=== PATIENT | female | born 1995 | race Caucasian/White ===

== ENCOUNTER 2017-10-20 19:04 | Inpatient (IN) | payer MEDICAID, SELFPAY ==
[2017-10-20 18:27] VITALS: BMI 27.6
[2017-10-20 18:46] LABS: Color, Urine Yellow (Yellow); Glucose, Dipstick Normal (Normal); Ketone-Dipstick 50 mg/dl (Negative); Leukocyte Esterase-Dipstick 25 /ul (Negative); Nitrite-Dipstick Negative (Negative); Occult Blood-Urine 10 /ul (Negative); Protein-Dipstick 30 mg/dl (Negative); Urine Clarity Sl. Cloudy (Clear); Urine Urobilinogen 1 mg/dl (Normal)
[2017-10-20 18:48] LABS: Urine Bilirubin Dipstick 1 mg/dL (Negative)
[2017-10-20 18:53] LABS: ROM Internal Control Test YES-OK TO RESULT pt. (Internal QC)
[2017-10-20 18:54] LABS: ROM Patient Test POSITIVE (Negative)
[2017-10-20 18:59] LABS: Amphetamine Urine VISTA NEGATIVE (<1000 ng/mL); Barbiturate Urine VISTA NEGATIVE (< 200 ng/mL); Benzodiazepine Urine VISTA NEGATIVE (< 200 ng/mL); Cocaine Urine VISTA NEGATIVE (< 300 ng/mL); Ecstacy Urine VISTA NEGATIVE (< 500 ng/mL); Methadone Urine VISTA NEGATIVE (< 300 ng/mL); PCP Urine VISTA NEGATIVE (< 25 ng/mL); THC Urine VISTA POSITIVE (< 50 ng/mL); Vista UDS pH Range 6
[2017-10-20] MEDS: Lactated Ringers 1,000 ML 50 ML IV ×2 (19:55→21:12)
[2017-10-20 20:21] LABS: Hematocrit 35.2 % (37-47); Hemoglobin 11.3 g/dl (12.0-15.0); Mean Corp Hgb Conc 32.1 g/gl (32-36); Mean Corpuscular Hgb 28.3 pg (27.0-32.0); Mean Corpuscular Volume 88.2 fL (81-99); Mean Platelet Vol. 12.4 fl (6.2-12.0); Platelet Count 252 K/mm3 (150-450); RBC Distribution Width SD 48.2 fl (35.1-43.9); Red Blood Count 3.99 M/mm3 (4.2-5.4); Scan Indicated on CBC? Y/N NO
[2017-10-20] MEDS: Oxytocin 30 units/NS 500 ml 30 UNITS/500 ML IV.SOLN IV (21:19)
--- NOTE | 2017-10-21 00:01 | PCM.HP.OB ---
(1) Active labor at term Status: Acute (2) UTI in Status: Acute Qualifiers: Comment: Repeat urine culture week of 10/12/17 (3) History of drug abuse in remission Status: Acute Comment: marijuana and meth in past, random tox screens done. positive marijuana in (4) Rubella non-immune status, antepartum Status: Acute (5) Supervision of high risk , antepartum Status: Acute Comment: MADAN 10/17/17 girl Gwen boyfriend Reji (6) complicated by tobacco use Status: Acute Qualifiers: History Date of Admission: 10/20/17 Gestational age: 40.3 History of this : 22 @ 40w3d presents IAL srom clear fluid at noon. no vb co ctx every ten minutes Pertinent Past Medical History: negative PSH: negative OB history: primigravid labs: rubella non immune RPR NR HIV neg HepB neg gc chlamydia negative Allergies nitrofurantoin Allergy (Intermediate, Verified 10/20/17 20:21) Rash Current Medications Acetaminophen (Tylenol) 325 - 650 mg PO Q4H PRN PRN PRN Reason: PAIN OR FEVER >100.4F Al Hydroxide/Mg Hydroxide (Mylanta Ii) 15 - 30 ml PO Q4H PRN PRN PRN Reason: INDIGESTION Citric Acid/Sodium Citrate (Bicitra) 30 ml PO UD PRN Oxytocin/Sodium Chloride () 30 units in 500 mls @ 1 mls/hr IV .Q500H [facility] Last Admin: 10/20/17 21:19 Dose: 1 mls/hr Lactated Ringer's () 1,000 mls @ 50 mls/hr IV .Q20H [facility] Last Admin: 10/20/17 21:12 Dose: 50 mls/hr Naloxone HCl 4 mg/ Dextrose 504 mls @ 0 mls/hr IV PRN PRN; Protocol PRN Reason: TO MAINTAIN RR>10 Nalbuphine HCl (Nubain) 5 - 10 mg IV Q3H PRN PRN PRN Reason: PAIN (4-10/10) Nalbuphine HCl (Nubain) 5 mg IV Q3H PRN PRN Reason: ITCHING Stop: 10/21/17 22:06 Naloxone HCl (Narcan) 0.2 mg IV Q1M PRN PRN Reason: RR<10 AND PT UNRESPONSIVE Stop: 10/21/17 22:06 Ondansetron HCl (Zofran) 4 mg IV Q8H PRN PRN PRN Reason: NAUSEA Promethazine HCl (Phenergan (Ll)) 6.25 - 12.5 mg IV Q4H PRN PRN; Protocol PRN Reason: IF NAUSEA PERSISTS Sodium Chloride () 5 - 15 ml IV UD [facility] Last Admin: 10/20/17 20:12 Dose: Not Given Smoking Status: Current every day smoker Alcohol: None 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 Denies: Nausea, Vomiting Genitourinary: Denies: Dysuria Gynecological: Reports: Vaginal discharge Musculoskeletal: Denies: Joint Pain, Joint Tenderness Skin: Denies: Rash, Wounds Neurological: Denies: Numbness, Tingling, Focal weakness Psychiatric: Denies: Anxiety, Depression, Homicidal Ideations, Suicidal Ideations Hematologic/ Lymphatic: Denies: Easy Bruising, Easy Bleeding Physical Exam General: Alert, Oriented x3, Cooperative Cardiovascular: Regular rate Lungs: Normal air movement Abdomen: Soft, Gravid, Appropriate for Gestational Age Extremities:: No edema Estimated gestational size: Appropriate for gestational size Presentation: Cephalic Cervix Dilation (cm): 4 Station: -2 Effacement (%): 70 Assessment/Plan Active and Suspected Problems (Last Reviewed 10/14/17 @ 12:00 by Carolina Pizarro) Active labor at term (Acute) admit IAL gbs neg start pitocin for rupture of membranes and epi prn
--- NOTE | 2017-10-21 00:07 | HP.PCM_ITS ---
(1) Active labor at term Status: Acute (2) UTI in Status: Acute Qualifiers: Comment: Repeat urine culture week of 10/12/17 (3) History of drug abuse in remission Status: Acute Comment: marijuana and meth in past, random tox screens done. positive marijuana in (4) Rubella non-immune status, antepartum Status: Acute (5) Supervision of high risk , antepartum Status: Acute Comment: MADAN 10/17/17 girl Gwen boyfriend Reji (6) complicated by tobacco use Status: Acute Qualifiers: History Date of Admission: 10/20/17 Gestational age: 40.3 History of this : 22 @ 40w3d presents IAL srom clear fluid at noon. no vb co ctx every ten minutes Pertinent Past Medical History: negative PSH: negative OB history: primigravid labs: rubella non immune RPR NR HIV neg HepB neg gc chlamydia negative Allergies nitrofurantoin Allergy (Intermediate, Verified 10/20/17 20:21) Rash Current Medications Acetaminophen (Tylenol) 325 - 650 mg PO Q4H PRN PRN PRN Reason: PAIN OR FEVER >100.4F Al Hydroxide/Mg Hydroxide (Mylanta Ii) 15 - 30 ml PO Q4H PRN PRN PRN Reason: INDIGESTION Citric Acid/Sodium Citrate (Bicitra) 30 ml PO UD PRN Oxytocin/Sodium Chloride () 30 units in 500 mls @ 1 mls/hr IV .Q500H [facility] Last Admin: 10/20/17 21:19 Dose: 1 mls/hr Lactated Ringer's () 1,000 mls @ 50 mls/hr IV .Q20H [facility] Last Admin: 10/20/17 21:12 Dose: 50 mls/hr Naloxone HCl 4 mg/ Dextrose 504 mls @ 0 mls/hr IV PRN PRN; Protocol PRN Reason: TO MAINTAIN RR>10 Nalbuphine HCl (Nubain) 5 - 10 mg IV Q3H PRN PRN PRN Reason: PAIN (4-10/10) Nalbuphine HCl (Nubain) 5 mg IV Q3H PRN PRN Reason: ITCHING Stop: 10/21/17 22:06 Naloxone HCl (Narcan) 0.2 mg IV Q1M PRN PRN Reason: RR<10 AND PT UNRESPONSIVE Stop: 10/21/17 22:06 Ondansetron HCl (Zofran) 4 mg IV Q8H PRN PRN PRN Reason: NAUSEA Promethazine HCl (Phenergan (Ll)) 6.25 - 12.5 mg IV Q4H PRN PRN; Protocol PRN Reason: IF NAUSEA PERSISTS Sodium Chloride () 5 - 15 ml IV UD FATMATA Last Admin: 10/20/17 20:12 Dose: Not Given Smoking Status: Current every day smoker Alcohol: None 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 Denies: Nausea, Vomiting Genitourinary: Denies: Dysuria Gynecological: Reports: Vaginal discharge Musculoskeletal: Denies: Joint Pain, Joint Tenderness Skin: Denies: Rash, Wounds Neurological: Denies: Numbness, Tingling, Focal weakness Psychiatric: Denies: Anxiety, Depression, Homicidal Ideations, Suicidal Ideations Hematologic/ Lymphatic: Denies: Easy Bruising, Easy Bleeding Physical Exam General: Alert, Oriented x3, Cooperative Cardiovascular: Regular rate Lungs: Normal air movement Abdomen: Soft, Gravid, Appropriate for Gestational Age Extremities:: No edema Estimated gestational size: Appropriate for gestational size Presentation: Cephalic Cervix Dilation (cm): 4 Station: -2 Effacement (%): 70 Assessment/Plan Active and Suspected Problems (Last Reviewed 10/14/17 @ 12:00 by Carolina Pizarro) Active labor at term (Acute) admit IAL gbs neg start pitocin for rupture of membranes and epi prn
[2017-10-21] MEDS: Ondansetron 4 MG/2 ML Vial IV (00:30)
[2017-10-21] MEDS: Lactated Ringers 1,000 ML 50 ML IV (01:26)
[2017-10-21] MEDS: Oxytocin 30 units/NS 500 ml 30 UNITS/500 ML IV.SOLN 334 UNITS IV (01:54)
[2017-10-21] MEDS: Oxytocin 30 units/NS 500 ml 30 UNITS/500 ML IV.SOLN 167 UNITS IV (02:24)
--- NOTE | 2017-10-21 02:24 | PCM.OB.VAG ---
(1) Active labor at term Status: Acute (2) UTI in Status: Acute Qualifiers: Comment: Repeat urine culture week of 10/12/17 (3) History of drug abuse in remission Status: Acute Comment: marijuana and meth in past, random tox screens done. positive marijuana in (4) Rubella non-immune status, antepartum Status: Acute (5) Supervision of high risk , antepartum Status: Acute Comment: MADAN 10/17/17 rian Hidalgo boyfrienjoanna Mendoza (6) complicated by tobacco use Status: Acute Qualifiers: Vaginal Delivery Maternal Presentation: Active Labor 22-year-old at 40 weeks 3 days presents in active labor with spontaneous rupture of membranes Amniotic Membrane Rupture Type: Spontaneous at home Amniotic Fluid Description: Clear Final MADAN: 10/17/17 Gestational age: 40 Weeks and 4 Days Date of Procedure: 10/21/17 Pre-Operative Diagnosis: In active labor Post-Operative Diagnosis: Same Surgery/ Procedure Performed: Spontaneous Vaginal Delivery Type of Anesthesia: Epidural, Pudendal block with 1% lidocaine Description of Procedure: Patient started pushing and developed significant pain vaginally and with the head was very painful and therefore pudendal block was placed with 1% lidocaine bilaterally the initial spines were identified and 10 cc of lidocaine bilaterally was injected 1 cm medial and posterior to the initial spines without complication bilaterally. Patient began pushing again and significant bradycardia was noted in the 70s-80s and therefore a midline episiotomy was cut to expedite delivery. Patient began pushing again and delivered the head in the TUNG presentation. The head was delivered atraumatically a very tight nuchal cord ?1 was noted around the neck and was unable to be reduced or delivered through and therefore after delivery of the anterior shoulder the cord was clamped cut. The anterior and posterior shoulders delivered without complication followed by the rest of the and the was placed on the maternal abdomen. Cord was clamped and cut and gentle traction was applied to the cord and the placenta delivered spontaneously immediately following it was noted to be intact with three-vessel cord. The perineum and vagina were inspected and noted to have no extension of the midline episiotomy was to the level of a second-degree perineal laceration this was repaired in the usual fashion with 3-0 Vicryl repeat. EBL was 300 cc. Patient and tolerated delivery well. Presentation: TUNG Placental Delivery Description: Spontaneous Cord Vessel Description: 3 Vessels Cord Entanglement: Around neck x 1, tight Drain: Govea to straight drain Estimated Blood Loss: 300 A gender: Female Episiotomy Description: Midline, Perineal Extension/lac, 2nd degree Laceration: None Medications given after delivery: IV Pitocin Complications: None
--- NOTE | 2017-10-21 02:28 | DCINST_ITS ---
Discharge Diet: No Restrictions Discharge Activity: Return to Normal Activity, May not drive while taking narcotic pain medications., May Shower May resume sexual activity in: 4-6 weeks Additional Activity Instructions:: Nothing in the vagina for 4-6 weeks. You may return to work/school in 6 weeks. Call your doctor if your incision/area has: Continuous Slow Oozing, Sudden Increased Bleeding, Increased Pain/ Swelling, Increased Redness, Foul Smelling Discharge Additional Instructions: If you experience any of the following, contact your healthcare provider. * Bleeding that soaks a pad every hour for 2 hours * Fever 100.4 or higher * Unrelieved incision or abdominal pain * Swelling, redness, discharge or bleeding from your incision or episiotomy site * Your incision begins to separate * Problems urinating (including inability to urinate or burning while urinating) . * Visual changes * Severe headache * Flu-like symptoms * Pain or redness in one of both of your breasts * Pain, warmth, tenderness or swelling in your legs, especially the calf area * Frequent nausea and vomiting * Symptoms of depression or anxiety If you experience any of the following, call 911 or go to the nearest Emergency Room. * Chest pain * Problems breathing * Seizure activity * Partial or complete paralysis of a body part, slurred speech, weakness or drooping of the face, or a sudden inability to walk or hold your balance Allergies/Adverse Reactions: Allergies nitrofurantoin Allergy (Intermediate, Verified 10/20/17 20:21) Rash Medications to take at Discharge Pnv No.122/Iron/Folic Acid [ Multi Tablet] 1 ea PO DAILY 04/19/17 Fluoxetine HCl [Prozac] 20 mg PO QDAY 10/20/17 Ranitidine HCl [Acid Control] 150 mg PO BID 10/20/17 Please Follow Up With: Marie Arita MD - [phone] When: Call to make an appointment with your doctor in 6 weeks. If you had elevated Blood Pressure or 4th degree laceration you will need to be seen in 2 weeks. Primary Care Physician: Vick Dong MD [Primary Care Provider] -
[2017-10-21] MEDS: Naproxen 250 MG Tablet PO ×3 (04:53→21:10)
[2017-10-21 09:00] VITALS: BP 116/59; PULSE 95; RESP 16; TEMP 36.4; O2SAT 94
[2017-10-21] MEDS: FLUoxetine 20 MG Capsule PO (10:40)
[2017-10-21] MEDS: Dibucaine 30 GM Tube 1 APPLIC TOPICAL (10:40)
[2017-10-21] MEDS: Prenatal Vits Tablet 1 TABLET PO (10:40)
[2017-10-21 12:00] VITALS: BP 105/66; PULSE 99; RESP 16; TEMP 36.3; O2SAT 96
[2017-10-21] MEDS: oxyCODONE 5 MG Tablet PO (15:29)
[2017-10-21 16:00] VITALS: BP 130/62; PULSE 89; RESP 18; TEMP 36.7; O2SAT 96
--- NOTE | 2017-10-21 16:02 | US_ITS ---
STUDY: ABDOMINAL ULTRASOUND - LEFT UPPER QUADRANT REASON FOR EXAM: Female, 22 years old. Intermittent left upper quadrant pain. this morning. TECHNIQUE: Transabdominal ultrasound was performed with real-time and static ray scale imaging. TECHNICAL QUALITY: Adequate. COMPARISON: None. FINDINGS: Spleen: Normal size of the spleen. The spleen measures 11.6 x 5.5 x 4.9 cm. Left Kidney: Normal size of the left kidney. The left kidney measures 12.6 x 5.95 x 4.9 cm. Normal renal cortex. The left cortex measures 1.35 cm. There is no demonstrated renal mass or cyst. There is no left hydronephrosis. US/Spleen IMPRESSION: Normal left upper quadrant abdominal ultrasound examination. Electronically Signed: Terry Gibbs MD at 17:20 EST , Service support ,
--- NOTE | 2017-10-21 18:47 | PCM.PN.OB ---
Patient Problems: Active and Suspected Problems (Last Reviewed 10/14/17 @ 12:00 by Carolina Pizarro) Active labor at term (Acute) Subjective: doing well co left sided pain- negative abdominal US. no CP SOB - Physical Exam General: Alert, Oriented x3 Vital Signs Temp Pulse Resp BP Pulse Ox 98.0 F 89 18 130/62 H 96 10/21/17 16:00 10/21/17 16:00 10/21/17 16:00 10/21/17 16:00 10/21/17 16:00 Oxygen Delivery Method Room Air Weight: 151 lb 0.266 oz Body Mass Index (BMI) 27.6 Intake and Output for Last 24 Hours 10/19/17 10/20/17 10/21/17 23:59 23:59 23:59 Intake Total 1185 / 1185 1550 / 1550 Output Total 770 / 770 Balance 1185 / 1185 780 / 780 Laboratory Tests Past 24 Hrs 10/20/17 10/20/17 10/20/17 18:30 18:30 18:30 WBC RBC Hgb Hct MCV MCH MCHC RDW RDW Differential Plt Count MPV Urine Color Yellow Urine Clarity Sl. Cloudy Urine pH 6.0 Ur Specific Baltic 1.020 Urine Protein 30 H Urine Glucose (UA) Normal Urine Ketones 50 H Urine Occult Blood 10 H Urine Nitrite Negative Urine Bilirubin 1 H Urine Urobilinogen 1 H Ur Leukocyte Esterase 25 H Vag Amniotic Fld Detect POSITIVE H Urine Opiates Screen NEGATIVE Urine Methadone Screen NEGATIVE Ur Barbiturates Screen NEGATIVE Ur Phencyclidine Scrn NEGATIVE Ur Amphetamines Screen NEGATIVE U Methamphetamin-MDMA NEGATIVE U Benzodiazepines Scrn NEGATIVE Urine Cocaine Screen NEGATIVE U Cannabinoids Screen POSITIVE H Hepatitis C Ab (EIA) Hepatitis C Comment Blood Type Antibody Screen 10/20/17 10/20/17 10/20/17 19:55 19:55 19:55 WBC 10.0 RBC 3.99 L Hgb 11.3 L Hct 35.2 L MCV 88.2 MCH 28.3 MCHC 32.1 RDW 15.0 H RDW Differential 48.2 H Plt Count 252 MPV 12.4 H Urine Color Urine Clarity Urine pH Ur Specific [place] Urine Protein Urine Glucose (UA) Urine Ketones Urine Occult Blood Urine Nitrite Urine Bilirubin Urine Urobilinogen Ur Leukocyte Esterase Vag Amniotic Fld Detect Urine Opiates Screen Urine Methadone Screen Ur Barbiturates Screen Ur Phencyclidine Scrn Ur Amphetamines Screen U Methamphetamin-MDMA U Benzodiazepines Scrn Urine Cocaine Screen U Cannabinoids Screen Hepatitis C Ab (EIA) Pending Hepatitis C Comment Pending Blood Type A POSITIVE Antibody Screen NEGATIVE Assessment/Plan Active and Suspected Problems (Last Reviewed 10/14/17 @ 12:00 by Carolina Pizarro) Active labor at term (Acute) s/p doing well routine care
[2017-10-21 21:01] VITALS: BP 133/67; PULSE 94; RESP 18; TEMP 36.6
[2017-10-22 01:26] VITALS: BP 127/74; PULSE 71; RESP 16; TEMP 36.4
[2017-10-22] MEDS: Acetaminophen 500 MG Tablet 1000 MG PO (01:36)
[2017-10-22] MEDS: Naproxen 250 MG Tablet PO (05:18)
[2017-10-22 07:40] VITALS: BP 105/67; PULSE 79; RESP 16; TEMP 36.4; O2SAT 97
[2017-10-22 08:32] LABS: Hep C Antibodies <0.1 s/co ratio (0.0-0.9)
[2017-10-22] MEDS: Senna/Docusate Sodium 1 Tablet PO (10:20)
[2017-10-22] MEDS: Prenatal Vits Tablet 1 TABLET PO (10:20)
[2017-10-22] MEDS: FLUoxetine 20 MG Capsule PO (10:20)
--- NOTE | 2017-10-22 11:07 | PCM.PN.OB ---
Patient Problems: Active and Suspected Problems (Last Reviewed 10/14/17 @ 12:00 by Carolina Pizarro) Active labor at term (Acute) Subjective: doing well no complaints pain controlled - Physical Exam General: Alert, Oriented x3 Vital Signs Temp Pulse Resp BP Pulse Ox 97.5 F L 79 16 105/67 97 10/22/17 07:40 10/22/17 07:40 10/22/17 07:40 10/22/17 07:40 10/22/17 07:40 Oxygen Delivery Method Room Air Weight: 151 lb 0.266 oz Body Mass Index (BMI) 27.6 Intake and Output for Last 24 Hours 10/20/17 10/21/17 10/22/17 23:59 23:59 23:59 Intake Total 1185 / 1185 1550 / 1550 Output Total 770 / 770 Balance 1185 / 1185 780 / 780 Laboratory Tests Past 24 Hrs 10/20/17 19:55 Hepatitis C Ab (EIA) <0.1 Hepatitis C Comment Not Reportable Assessment/Plan Active and Suspected Problems (Last Reviewed 10/14/17 @ 12:00 by Carolina Pizarro) Active labor at term (Acute) s/p doing well routine care
[2017-10-22 12:07] VITALS: BP 133/80; PULSE 90; RESP 16; TEMP 36.8; O2SAT 97
--- NOTE | 2017-10-22 12:38 | NURSING ---
Agree with student nurse assessment and vital signs.
--- NOTE | 2017-10-22 13:55 | CASEMGMT ---
Social Work Note Labor and Delivery Unit Social Work Assessment completed. Refer to documentation below for further details. Date of Referral: 10/20/2017; 10/21/2017 Time of Referral: 1952; 430 Referred By: Dr. Arita; Dr. Medina Reason for Referral: substance use dudring - meth and marijuana Date of Intervention: 10/22/2017 Time of Intervention: 1355 History obtained from: Medical record and mother of baby (MOB) Jeri Echeverria Household composition: MOB and father of baby (FOB) Reji Zazueta currently live with MOBs parents. MOB reports to have own living space and that home situation is safe and adequate. Patient's parent/guardian status: MOB, age 22, reports has been with FOB who is also 22 years old, for about 2 years now. MOB denies any form of abuse in relationship with FOB. Medical History: MOB is G1, P0 to 1 after delivering Gwen Zazueta. care started at 8 weeks gestation. Babys weight is 2918 grams, and Apgars were 7 and 9 at time of delivery. MOB planning to breast feed baby. Educational Status: MOB graduated high school and has some further training at a [employer]. MOB denies any issues with reading, writing, or learning. Financial Status: MOB is not currently working. FOB works in construction normally, but is also unemployed currently. MOB reports her parents are willing to help out financially. Supplies: MBO reports to have needed supplies including pack-n-play, crib, bassinet, car seat, clothing, diapers, and wipes. Childcare/Caregiver(s): MB plans to be primary caregiver to , but that will also have help from family. Transportation: MOB relies on MOBs mother and Reji for transportation. Programs/Agencies Involved: MOB reports to have medical and food from [facility]. MOB has [facility] and [facility] already established for weekly visits. Children Services/Legal Issues: MOB denies. Behavioral Health Issues: MBO with history of depression and anxiety diagnosed in 2010. MOB on Prozac at this time. MOB denies any history of suicidal thoughts or attempts. MOB reports to feel connected to this baby and denies any depressive or anxiety symptoms. MOB with history of polysubstance use including marijuana and methamphetamines. MOB with positive drug screens for both substances on 04-08-17. Subsequent drug screening showing positive for marijuana on 10-20-17, 09-28-2017, ad 07-08-2017. MOB denies other illicit drug use and reports that quit using meth on own after finding out about ; duration of meth use reported to be a year. Last marijuana usage was prior to delivery however, reportedly about 2 days prior; duration of marijuana usage reported to be for about 8 years. MOB smokes tobacco and continued through the . Babys urine drug screen negative and meconium pending. Family/Social Stressors: MOB first time mother, dealing with substance use/dependence during this . MOB has history of depression and anxiety. Father of baby with history of ADHD, history of treatment with Adderall. Support Systems: MOB reports MOBs parents are willing to help out with baby as well as to help out financially. MOB is just getting connected to [facility] [place]. Depression/Shaken Baby/Safe Sleeping: Educated to depression, anxiety, and risk factors present. Educated to shaken baby and safe sleeping. MOB able to give appropriate responses on shaken baby. ASSESSMENT: MOB cooperative with social work visit, handled baby during assessment and was attentive and gentle. MOB reports to feel good and happy about the baby. MOB did have slightly rapid speech during assessment, restless at times. MOB held normal eye contact, affect normal and congruent to content. social group worker talked to MOB about need for referral to children services and chance that a case will be opened to follow up with family to ensure that needs are being met to safely care for baby. MOB reports will be willing to do whatever children services wants MOB to do. Encouraged MOB to be honest and upfront, as to accept help offered. MOB reports agreement. PLAN: MOB and infant to home. Resources for [facility] given, including information on depression and anxiety. Will be calling [facility] regarding concerns about [facility] drug use during this [facility] No other services requested or indicated. -MISHA Vega, TALENT ACQUISITION CONSULTANT
--- NOTE | 2017-10-22 14:45 | CASEMGMT ---
Social Work - Labor and Delivery Unit Referral made to [facility] ([facility]) and spoke with Latanya Jefferson in the intake department. Concerns related to maternal drug use in . Referral to be opened for investigation. Spoke with mother of baby again. updated Also provided [facility] and mommy/baby programs. No other services requested or indicated. -KIRIT Vega, CORE ANALYST
== END 2017-10-22 15:15 | disposition home or self-care (01) | DRG 372 ==
LOC: WPOUT 19:06 → WP 19:06
PROVIDERS: Admitting Provider Obstetrics & Gynecology; Family Provider Family Medicine; PCP Family Medicine; Visit Provider Obstetrics & Gynecology
DX: O42.02 Full-term premature rupture of membranes, onset of labor within 24 hours of rupture (principal); O90.89 Other complications of the puerperium, not elsewhere classified; O23.43 Unspecified infection of urinary tract in pregnancy, third trimester; O99.324 Drug use complicating childbirth; O76 Abnormality in fetal heart rate and rhythm complicating labor and delivery; F12.10 Cannabis abuse, uncomplicated; F15.11 Other stimulant abuse, in remission; O69.1XX0 Labor and delivery complicated by cord around neck, with compression, not applicable or unspecified; O70.1 Second degree perineal laceration during delivery; O99.334 Smoking (tobacco) complicating childbirth; O99.344 Other mental disorders complicating childbirth; F32.9 Major depressive disorder, single episode, unspecified; F41.9 Anxiety disorder, unspecified; O26.893 Other specified pregnancy related conditions, third trimester; R10.2 Pelvic and perineal pain; R10.12 Left upper quadrant pain; Z37.0 Single live birth; Z3A.40 40 weeks gestation of pregnancy; Z78.9 Other specified health status
CPT/HCPCS: 59025; 59050; 76705; 80307; 81002; 84112; 85027; 86803; 86850; 86900; 99218; J7120; G0378; J2405

== ENCOUNTER 2018-07-20 13:53 | Emergency (ER) | payer MEDICAID, SELFPAY ==
[2018-07-20 13:54] VITALS: BP 105/59; PULSE 123; RESP 18; TEMP 36.1; O2SAT 99; BMI 23.6
[2018-07-20] MEDS: Ketorolac 60 MG/2 ML Vial IM (14:40)
[2018-07-20 14:42] LABS: Absolute Lymphocyte Count 0.99 X10^3/ul (0.83-4.51); Basophil# 0.03 X10^3/uL; Basophil% 0.5 % (0-1); Eosinophil# 0.12 X10^3/uL; Eosinophils% 1.8 % (0-5); Hematocrit 41.8 % (37-47); Hemoglobin 13.9 g/dl (12.0-15.0); Lymphocyte # 0.99 X10^3/ul (4.0); Lymphocyte % 15.2 % (19-41); Mean Corp Hgb Conc 33.3 g/gl (32-36); Mean Corpuscular Hgb 30.2 pg (27.0-32.0); Mean Corpuscular Volume 90.9 fL (81-99); Mean Platelet Vol. 10.7 fl (6.2-12.0); Monocyte# 0.31 X10^3/uL; Monocyte% 4.8 % (0-10); Neutrophil # 5.04 X10^3/uL (2.7-7.7); Neutrophil % 77.5 % (47-70); POSITIVE COUNT NO; POSITIVE DIFFERENTIAL NO; POSITIVE MORPHOLOGY NO; Platelet Count 208 K/mm3 (150-450); RBC Distribution Width CV 13.8 % (11.6-14.6); RBC Distribution Width SD 45.2 fl (35.1-43.9); White Blood Count 6.5 K/mm3 (4.4-11.0)
--- NOTE | 2018-07-20 14:43 | US_ITS ---
STUDY: ULTRASOUND OF THE FEMALE PELVIS - COMPLETE REASON FOR EXAM: Female, 23 years old. Bleeding x2 weeks. LMP: TECHNIQUE: Transvaginal. TECHNICAL QUALITY: Adequate. COMPARISON: None. FINDINGS: The uterus is normal in size and echogenicity, measuring 6.4 x 3.1 x 4.7 cm. Endometrial thickness is normal, measuring 5 mm. The left ovary is normal in size and echogenicity, measuring 3.1 x 1.8 x 2 cm. There is no mass or dominant follicle. Arterial and venous flow is documented. The right ovary is normal in size and echogenicity, measuring 3.2 x 2.4 x 2.9 cm. Dominant follicle measures 1.3 x 1.2 cm. This is within normal limits. There is no evidence of mass. Arterial flow is documented. There is no free fluid in the cul-de-sac. US/Transvaginal Non- IMPRESSION: Normal female pelvis. Electronically Signed: Lynnette Morocho MD at 16:28 EDT Tel , Service support ,
[2018-07-20 15:15] LABS: Pregnancy, Serum, hCG Quali. NEGATIVE Negative (0-9 Nonpreg)
--- NOTE | 2018-07-20 15:39 | ED.VISSUMM ---
- ER Visit Summary Date of Service: 07/20/18 Chief Complaint: Back and pelvic pain History of Present Illness: The patient is a 23 F states for the past 2 weeks she has had vaginal bleeding. She describes it as occasionally heavy with some clots. 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 She states that last night she developed pain in the bilateral hips and in the low back. She states that consist in the past. She was on oral control and ran out of it 2 weeks ago and then she was able to get it again and started on Thursday. Patient is Ab0. Patient states that she has urinary frequency. She states that she frequently has the urge to urinate but does not actually go. She is a smoker. Physical Examination: Afebrile vital signs are stable noted tachycardia in triage at 123. Gen: Well-nourished well-developed Head: Normocephalic atraumatic Eyes: Perrl EOMI ENT: TMs clear no rhinorrhea moist mucous membranes Neck: Supple no lymphadenopathy no JVD nontender CVS: Regular rate rhythm no murmurs normal S1-S2 Respiratory: No distress clear to auscultation bilaterally chest nontender Abdomen: Soft little tenderness to palpation. Nondistended normal bowel sounds no masses Back: Usually tender out of proportion to the exam Extremity: Nontender no edema Skin: Normal color no rash Neuro: alert orientated ?3 CN II-XII intact normal strength sensation reflexes gait cerebellar Psych: Patient doreen is able to speak to me. She curses frequently. Test Results: CBC is normal. Serum test is negative. Patient received Toradol IM. Ultrasound of the pelvis was obtained. Urinalysis orbit. This note was generated with [employer] dictation software. It may contain incorrect words, spelling, and punctuation that were not noted in review of the chart prior to signing <Reese Richards - Last Filed: 07/20/18 15:39> - ER Visit Summary Date of Service: 07/20/18 Chief Complaint: Sleepiness secondary to pain medication. History of Present Illness: The patient is a 23 F who was initially evaluated by Dr. Momo Richards and for me to make disposition once all her tests were available. Patient was informed of her ultrasound results. She had to be awakened several times while I was speaking to her. She became boisterous and. Stated fucking sleepy because of the pain medicine I was given .. Patient was informed that she received Toradol and Toradol does not cause drowsiness. She stated she wanted her shirt and the Hep-Lock removed. I informed her that she would sign out AGAINST MEDICAL ADVICE. She then informed me you cannot make me fucking Pee . I informed her she is correct. However because of her complaints and concerns that she may have a kidney infection and if missed may lead to hypertension etc. She would sign out AGAINST MEDICAL ADVICE. Her mother convinced her to allow the nurse to perform a straight cath. Her nurse, Cem, was informed that in order for a straight cath was placed. Apparently before Cem entered the room patient had urinated into the specimen cup. I was informed that she still wishes to go home. Apparently her mother intervened again and convinced her to stay. Physical Examination: Patient appears in no discomfort. Vital signs are noted. Patient somnolent. Test Results: Pelvic ultrasound revealed normal uterus, endometrial lining, right and left ovary and pelvis. Urinalysis is pending. Because of her abusive, abnormal behavior and sleepiness a urine tox screen was added. Emergency Department Course and Treatment: Patient was informed of her urine results. Will treat with Macrobid for cystitis. She received information regarding illicit drug use. Treatment Plan: Prescription for Macrobid 100 mg twice daily times 5 days. Disposition: Discharged to home Impression: 1. Acute cystitis 2. Illicit drug use 3. Abnormal vaginal bleeding This note was generated with [employer] dictation software. It may contain incorrect words, spelling, and punctuation that were not noted in review of the chart prior to signing <Ap Roblero - Last Filed: 07/20/18 17:53> ED Disposition <Reese Richards - Last Filed: 07/20/18 15:39> <Ap Roblero - Last Filed: 07/20/18 17:53> - Plan for ED Patient: Disposition: Home or Assisted Living Chief Complaint: Vag Bleeding Instructions: ED Bleed Irregular Vaginal, ED UTI Cystitis Female, ED Drug Abuse General Prescriptions: Smz/Tmp Ds [Bactrim Ds] 1 tablet PO BID #6 tablet Phenazopyridine HCl [Pyridium] 200 mg PO TID #10 tablet Referrals: Vick Dong MD [Primary Care Provider] - 3-5 Days if not improving Additional Instructions: Your prescriptions were electronically transmitted to [facility] pharmacy on [facility].
--- NOTE | 2018-07-20 15:42 | ED.DCSUM_ITS ---
- ER Visit Summary Date of Service: 07/20/18 Chief Complaint: Back and pelvic pain History of Present Illness: The patient is a 23 F states for the past 2 weeks she has had vaginal bleeding. She describes it as occasionally heavy with some clots. She was supposed to see her AU PAIR on Thursday but missed that appointment. She states that last night she developed pain in the bilateral hips and in the low back. She states that consist in the past. She was on oral control and ran out of it 2 weeks ago and then she was able to get it again and started on Thursday. Patient is Ab0. Patient states that she has urinary frequency. She states that she frequently has the urge to urinate but does not actually go. She is a smoker. Physical Examination: Afebrile vital signs are stable noted tachycardia in triage at 123. Gen: Well-nourished well-developed Head: Normocephalic atraumatic Eyes: Perrl EOMI ENT: TMs clear no rhinorrhea moist mucous membranes Neck: Supple no lymphadenopathy no JVD nontender CVS: Regular rate rhythm no murmurs normal S1-S2 Respiratory: No distress clear to auscultation bilaterally chest nontender Abdomen: Soft little tenderness to palpation. Nondistended normal bowel sounds no masses Back: Usually tender out of proportion to the exam Extremity: Nontender no edema Skin: Normal color no rash Neuro: alert orientated ?3 CN II-XII intact normal strength sensation reflexes gait cerebellar Psych: Patient doreen is able to speak to me. She curses frequently. Test Results: CBC is normal. Serum test is negative. Patient received Toradol IM. Ultrasound of the pelvis was obtained. Urinalysis orbit. This note was generated with [employer] dictation software. It may contain incorrect words, spelling, and punctuation that were not noted in review of the chart prior to signing <Reese Richards - Last Filed: 07/20/18 15:39> - ER Visit Summary Date of Service: 07/20/18 Chief Complaint: Sleepiness secondary to pain medication. History of Present Illness: The patient is a 23 F who was initially evaluated by Dr. Momo Richards and for me to make disposition once all her tests were available. Patient was informed of her ultrasound results. She had to be awakened several times while I was speaking to her. She became boisterous and. Stated fucking sleepy because of the pain medicine I was given .. Patient was informed that she received Toradol and Toradol does not cause drowsiness. She stated she wanted her shirt and the Hep-Lock removed. I informed her that she would sign out AGAINST MEDICAL ADVICE. She then informed me you cannot make me fucking Pee . I informed her she is correct. However because of her complaints and concerns that she may have a kidney infection and if missed may lead to hypertension etc. She would sign out AGAINST MEDICAL ADVICE. Her mother convinced her to allow the nurse to perform a straight cath. Her nurse, Cem, was informed that in order for a straight cath was placed. Apparently before Cem entered the room patient had urinated into the specimen cup. I was informed that she still wishes to go home. Apparently her mother intervened again and convinced her to stay. Physical Examination: Patient appears in no discomfort. Vital signs are noted. Patient somnolent. Test Results: Pelvic ultrasound revealed normal uterus, endometrial lining, right and left ovary and pelvis. Urinalysis is pending. Because of her abusive, abnormal behavior and sleepiness a urine tox screen was added. Emergency Department Course and Treatment: Patient was informed of her urine results. Will treat with Macrobid for cystitis. She received information regarding illicit drug use. Treatment Plan: Prescription for Macrobid 100 mg twice daily times 5 days. Disposition: Discharged to home Impression: 1. Acute cystitis 2. Illicit drug use 3. Abnormal vaginal bleeding This note was generated with [employer] dictation software. It may contain incorrect words, spelling, and punctuation that were not noted in review of the chart prior to signing <Ap Roblero - Last Filed: 07/20/18 17:53> ED Disposition <Reese Richards - Last Filed: 07/20/18 15:39> <Ap Roblero - Last Filed: 07/20/18 17:53> - Plan for ED Patient: Disposition: Home or Assisted Living Chief Complaint: Vag Bleeding Instructions: ED Bleed Irregular Vaginal, ED UTI Cystitis Female, ED Drug Abuse General Prescriptions: Smz/Tmp Ds [Bactrim Ds] 1 tablet PO BID #6 tablet Phenazopyridine HCl [Pyridium] 200 mg PO TID #10 tablet Referrals: Vick Dong MD [Primary Care Provider] - 3-5 Days if not improving Additional Instructions: Your prescriptions were electronically transmitted to [facility] on [facility].
--- NOTE | 2018-07-20 17:04 | ED.RN ---
PT EXTREMELY AGITATED WHEN ASKED FOR URINE FROM DR. MOHAMUD. PT REFUSED TO SIGN AMA FORMS STATING THAT SHE WAS NOT LEAVING AMA, AND SHE WAS NOT REFUSING TREATMENT OF ANY KIND, BUT THAT NO ONE WAS ALLOWED TO FORCE HER TO URINATE. PT WAS ADVISED THE REASONS FOR URINE COLLECTION TO R/O INFECTION THAT MAY BE THE CAUSE OF SX, HOWEVER PT STILL ADAMANTLY REFUSED AND REQUESTED FOR DC IV. THIS NURSE ARRIVED TO ROOM TO DC IV, AND PT HAD AMBULATED TO BATHROOM ACROSS THE [place] AND GAVE A URINE SAMPLE. PT STATED THAT SHE WAS READY TO LEAVE AND THAT SHE WANTED HER IV REMOVED IMMEDIATELY. THIS NURSE INFORMED DR. MOHAMUD THAT URINE WAS OBTAINED BUT THAT PT WANTED TO LEAVE PRIOR TO RESULTS. DR. MOHAMUD REQUESTED THAT SHE STILL SIGN AMA FORMS IN THAT SHE WAS LEAVING PRIOR TO TREATMENT. PT REFUSED, IV WAS DC, AND PT STATES THAT SHE WILL REMAIN IN ED UNTIL HER URINE RESULTS LONG WE DON'T USE FURTHER NEEDLES. PT INFORMED THAT SOON RESULTS HAVE POSTED, DR. MOHAMUD WOULD RETURN TO DISCUSS RESULTS AND FURTHER TREATMENT AND INTERVENTION.
[2018-07-20 17:07] LABS: Red Blood Cells-Urine 0 SEEN /hpf (0-5)
[2018-07-20 17:08] LABS: Color, Urine Yellow (Yellow); Glucose, Dipstick Normal (Normal); Ketone-Dipstick 5 mg/dl (Negative); Leukocyte Esterase-Dipstick 100 /ul (Negative); Nitrite-Dipstick Positive (Negative); Occult Blood-Urine Negative /ul (Negative); Protein-Dipstick 15 mg/dl (Negative); Urine Bilirubin Dipstick Negative (Negative); Urine Clarity Sl. Cloudy (Clear); Urine Urobilinogen Normal (Normal); Urine pH 6.5 (5.0 - 8.0)
[2018-07-20 17:32] LABS: Bacteria 3+ /hpf (None Seen); Mucous, Urine 1+ /hpf (<or=2+); Squamous Epithelial Cells - UA 5-10 SEEN /hpf (5-10); White Blood Cells 0-5 SEEN /hpf (0-5)
[2018-07-20 17:37] LABS: Amphetamine Urine VISTA POSITIVE (<1000 ng/mL); Barbiturate Urine VISTA NEGATIVE (< 200 ng/mL); Benzodiazepine Urine VISTA NEGATIVE (< 200 ng/mL); Cocaine Urine VISTA NEGATIVE (< 300 ng/mL); Ecstacy Urine VISTA POSITIVE (< 500 ng/mL); Internal QC Validated? YES +Cl - CLEAR BKGD; Methadone Urine VISTA NEGATIVE (< 300 ng/mL); PCP Urine VISTA NEGATIVE (< 25 ng/mL); Pregnancy, Urine Negative Negative; THC Urine VISTA POSITIVE (< 50 ng/mL); Vista UDS pH Range 6
[2018-07-20] MEDS: Smz/Tmp Ds Tablet 1 TABLET PO (18:03)
[2018-07-20] MEDS: Phenazopyridine 95 MG Tablet 190 MG PO (18:03)
== END 2018-07-20 18:04 | disposition home or self-care (01) ==
PROVIDERS: Emergency Medicine; Emergency Provider Emergency Medicine; Family Provider Family Medicine; PCP Family Medicine
DX: N30.00 Acute cystitis without hematuria (principal); B96.89 Other specified bacterial agents as the cause of diseases classified elsewhere; N93.9 Abnormal uterine and vaginal bleeding, unspecified; F19.90 Other psychoactive substance use, unspecified, uncomplicated; F17.200 Nicotine dependence, unspecified, uncomplicated
CPT/HCPCS: 76830; 80307; 81001; 81025; 84703; 85025; 93976; 96372; 99282; A4216

== ENCOUNTER 2018-10-11 17:12 | Emergency (ER) | payer MEDICAID, SELFPAY ==
[2018-10-11 17:14] VITALS: BP 99/55; PULSE 119; RESP 18; TEMP 37; O2SAT 100; BMI 25.0
== END 2018-10-11 19:29 | disposition left against medical advice (07) ==
LOC: ED 19:22
PROVIDERS: Emergency Provider Emergency Medicine; Family Provider Family Medicine; PCP Family Medicine
DX: R69 Illness, unspecified (principal)

== ENCOUNTER → 2018-10-21 15:49 | Outpatient (CLI) | payer MEDICAID, SELFPAY ==
[2018-10-11 17:14] VITALS: BMI 25.0
[2018-10-21 19:53] LABS: Chlamydia Trachomatis by PCR Negative (Negative); Neisserai gonorrhoeae by PCR Negative (Negative); Probe Check PASS; Sample Adequacy Control PASS; Specimen Processing Control PASS
== END ==
PROVIDERS: Family Provider Family Medicine; PCP Family Medicine; Referring Provider Obstetrics & Gynecology; Visit Provider Obstetrics & Gynecology
DX: Z12.4 Encounter for screening for malignant neoplasm of cervix (principal); Z11.3 Encounter for screening for infections with a predominantly sexual mode of transmission
CPT/HCPCS: 87491; 87591; 88175; G0145

== ENCOUNTER → 2018-11-03 11:21 | Outpatient (CLI) | payer MEDICAID, SELFPAY ==
[2018-10-11 17:14] VITALS: BMI 25.0
[2018-11-03 13:50] LABS: Absolute Lymphocyte Count 3.37 X10^3/ul (0.83-4.51); Absolute Neutrophil Count 5.7 X10^3/uL (2.0-7.7); Basophil# 0.02 X10^3/uL; Basophil% 0.2 % (0-1); Eosinophils% 4.8 % (0-5); Hemoglobin 13.2 g/dl (12.0-15.0); Lymphocyte # 3.37 X10^3/ul (4.0); Lymphocyte % 32.6 % (19-41); Mean Corpuscular Hgb 29.9 pg (27.0-32.0); Mean Corpuscular Volume 90.7 fL (81-99); Monocyte# 0.75 X10^3/uL; Monocyte% 7.3 % (0-10); Neutrophil # 5.68 X10^3/uL (2.7-7.7); Neutrophil % 54.9 % (47-70); Platelet Count 302 K/mm3 (150-450); RBC Distribution Width CV 13.7 % (11.6-14.6); RBC Distribution Width SD 44.8 fl (35.1-43.9); Red Blood Count 4.41 M/mm3 (4.2-5.4); White Blood Count 10.3 K/mm3 (4.4-11.0)
[2018-11-03 13:51] LABS: POSITIVE COUNT NO; POSITIVE DIFFERENTIAL NO; POSITIVE MORPHOLOGY NO
[2018-11-03 13:54] LABS: Color, Urine Yellow (Yellow); Glucose, Dipstick Normal (Normal); Ketone-Dipstick Negative (Negative); Leukocyte Esterase-Dipstick 25 /ul (Negative); Nitrite-Dipstick Negative (Negative); Occult Blood-Urine Negative /ul (Negative); Protein-Dipstick Negative (Negative); Urine Bilirubin Dipstick Negative (Negative); Urine Clarity Sl. Cloudy (Clear); Urine Urobilinogen Normal (Normal)
[2018-11-03 14:00] LABS: COTININE Drug Screen Positive (<200 ng/mL)
[2018-11-03 14:09] LABS: Amphetamine Urine VISTA POSITIVE (<1000 ng/mL); Barbiturate Urine VISTA NEGATIVE (< 200 ng/mL); Benzodiazepine Urine VISTA NEGATIVE (< 200 ng/mL); Cocaine Urine VISTA NEGATIVE (< 300 ng/mL); Ecstacy Urine VISTA NEGATIVE (< 500 ng/mL); Methadone Urine VISTA NEGATIVE (< 300 ng/mL); PCP Urine VISTA NEGATIVE (< 25 ng/mL); THC Urine VISTA POSITIVE (< 50 ng/mL); Vista UDS pH Range 6
[2018-11-03 14:13] LABS: Thyroid Stim Hormone (TSH) 2.07 uIU/mL (0.358-3.74)
[2018-11-03 14:55] LABS: HIV - WCH Non-Reactive (Nonreactive); Rubella IgG 35.6 IU/mL
[2018-11-04 23:34] LABS: Prenatal RPR NONREACTIVE (NONREACTIVE)
[2018-11-06 05:08] LABS: AFP MoM Value 1.38 (.); AFP Value-EIA 47.2 ng/mL (.); Comment Report (.); DIA MoM Value 1.08 (.); DIA Value-EIA 196.38 pg/mL (.); DSR (By Age) 1071 (.); DSR (Second Trimester) 10000 (.); Gestat. Age Based On As provided (.); Gestational Age 16.1 WEEKS (.); Insulin Dep Diabetes No (.); hCG MoM 0.65 (.)
[2018-11-06 11:08] LABS: HEPATITIS B SURFACE AG Negative (Negative); Hep C Antibodies <0.1 s/co ratio (0.0-0.9)
== END ==
PROVIDERS: Visit Provider Obstetrics & Gynecology
DX: Z34.82 Encounter for supervision of other normal pregnancy, second trimester (principal)
CPT/HCPCS: 36415; 80307; 81002; 82105; 82677; 84443; 84702; 85025; 86336; 86703; 86762; 86803; 87340

== ENCOUNTER 2018-12-18 17:51 | Observation (INO) | payer MEDICAID, SELFPAY ==
[2018-12-18 17:51] VITALS: BP 114/69; PULSE 105; RESP 20; TEMP 36.4; O2SAT 99; BMI 24.7
--- NOTE | 2018-12-18 18:05 | ED.VIS.GEN ---
History of Present Illness Chief Complaint: Nausea/Vomiting Detail of Chief Complaint: For the past several days Informant: Patient Onset: Days Context: Sudden Onset Timing: Intermittent Quality: Nausea and vomiting Location: Not applicable Current Severity: Moderate Maximum Severity: Moderate Worsened by: Attempt to eat or drink anything Relieved by: Nothing Associated Symptoms: Thirst, dry mouth and lightheadedness Narrative: Patient is a 23-year-old female whose expected date of delivery is April 19, 2019 presents with nausea vomiting for the past several days. She states she is vomiting 5+ times a day. She denies fever, chills night sweats. She denies ocular, visual auditory symptoms. She denies cardiac respiratory symptoms. She claims of mild abdominal discomfort. She denies urinary symptoms. She reports decreased urine output. She reports dry mouth, thirst and orthostatic symptoms. She denies any rash or skin lesions. She has no sniffing a past medical history. She had problems with hyperemesis first trimester with prior . Past Medical History - Allergies and Home Meds Allergies/Adverse Reactions: Allergies nitrofurantoin Allergy (Intermediate, Verified 12/18/18 17:53) Rash Prior records reviewed: Yes Past Medical History: None Lives: With Family Smoking Status: Current every day smoker Alcohol: None Review of Systems General: Denies: Chills, Fever, Malaise, Sweats Eyes: Denies: Visual changes - bilaterally, Blurred Vision - bilaterally, Diplopia ENT: Denies: Rhinorrhea, Sore throat Cardiovascular: Denies: Chest pain, Palpitations Respiratory: Denies: Dyspnea, Cough, Dyspnea on exertion Gastrointestinal: Reports: Abdominal pain, Nausea, Vomiting. Denies: Diarrhea, Constipation, Melena, Hematochezia Genitourinary: Denies: Dysuria, Hematuria, Frequency Musculoskeletal: Denies: Back pain, Extremity Pain Skin: Denies: Rash, Wounds Neurological: Denies: Headache, Weakness, Numbness Endocrine: Denies: Polyuria, Polydipsia Hematologic: Denies: Easy bruising, Easy bleeding Allergy: Denies: Uticaria Physical Exam Vital Signs/Narrative: Vital Signs Temp Pulse Resp BP Pulse Ox 12/18/18 17:51 97.6 F L 105 H 20 H 114/69 99 Inital Vital Signs reviewed: Yes General: Well nourished, Well developed, Acute Distress Head: Normocephalic, Atraumatic Eyes: Perrl, EOMI. Negative for: Pale conjunctiva, Scleral icterus ENT: No rhinorrhea, TM's clear, Dry mucous membranes Neck: Supple, Nontender Cardiovascular: Regular rate, Regular rhythm, No murmurs Respiratory: No distress, CTA bilaterally, Chest nontender Abdomen: Soft, Nontender, Nondistended, Normal bowel sounds, Hypoactive bowel sounds, Mass - Gravid uterus. Back: Nontender, Normal Inspection Extremities: Nontender, No edema Skin: Normal color, No rash Neurological: Alert, Oriented x3, Cranial nerves II-XII grossly intact, Normal Strength, Normal Sensation Psychological: Normal affect, Normal Mood Diagnostic/Tx/Re-eval Laboratory Results 12/18/18 20:00 Urine Color Yellow Urine Clarity Sl. Cloudy Urine pH 6.0 Ur Specific [place] 1.025 Urine Protein 30 H Urine Glucose (UA) 50 H Urine Ketones 150 H Urine Occult Blood Negative Urine Nitrite Negative Urine Bilirubin 1 H Urine Urobilinogen Normal Ur Leukocyte Esterase 25 H Urine RBC 0-5 SEEN Urine WBC 0-5 SEEN Ur Squamous Epith Cells 10-25 SEEN Urine Bacteria 1+ Urine Mucus 2+ Urine specimen is contaminated. She was gravity is elevated and ketones are positive. - Rhythm Strip Rhythm Strip: Sinus Rhythm Rate: 105 Ectopy: None - Narrow complex - Medical Decision Making IV was established. She received 1 L of normal saline wide open. He received 10 mg of Reglan for her nausea and vomiting and will assess urine for ketones, specific gravity and evidence of infection. Patient's urine reveals elevated specific gravity 1.025 and ketones, 150. There is also glucose. Patient failed p.o. challenge. Patient has received 2 L of normal saline wide open. Since patient specific gravity is elevated and there is ketones in urine and patient failed p.o. challenge Dr. Elly Doyle who is on-call for Dr. Goff was paged. Will assign 23 observation MedSurg for hyperemesis gravidarum ED Disposition - Plan for ED Patient: Disposition: Acute Care Hospital [facility] Diagnosis: Hyperemesis gravidarum, Moderate dehydration, Ketosis
[2018-12-18 18:11] VITALS: BP 120/63; PULSE 98; RESP 15; O2SAT 100
[2018-12-18] MEDS: 0.9% Normal Saline 1,000 ML 1000 ML IV ×2 (18:22→19:09)
[2018-12-18] MEDS: Metoclopramide 10 MG/2 ML Vial IV (18:22)
--- NOTE | 2018-12-18 18:28 | ED.RN ---
PT LAYING IN BED IN POSITION. PT STATES MY BELLY AND BACK HURT. DR INFORMED. NO FURTHER ORDERS. Elana DICKERSON RN [id number]
[2018-12-18 20:22] VITALS: BP 113/69; PULSE 89; RESP 15; O2SAT 100
[2018-12-18 20:24] LABS: Color, Urine Yellow (Yellow); Glucose, Dipstick 50 mg/dl (Normal); Leukocyte Esterase-Dipstick 25 /ul (Negative); Nitrite-Dipstick Negative (Negative); Occult Blood-Urine Negative /ul (Negative); Protein-Dipstick 30 mg/dl (Negative); Specific Gravity, Urine 1.025 (1.002-1.030); Urine Bilirubin Dipstick 1 mg/dL (Negative); Urine Clarity Sl. Cloudy (Clear); Urine Urobilinogen Normal (Normal)
[2018-12-18 20:25] LABS: Ketone-Dipstick 150 mg/dl (Negative)
[2018-12-18 20:28] LABS: Bacteria 1+ /hpf (None Seen); Mucous, Urine 2+ /hpf (<or=2+); Red Blood Cells-Urine 0-5 SEEN /hpf (0-5); Squamous Epithelial Cells - UA 10-25 SEEN /hpf (5-10); White Blood Cells 0-5 SEEN /hpf (0-5)
[2018-12-18] MEDS: Metoclopramide 10 MG/2 ML Vial 5 MG IV (21:12)
[2018-12-18 21:16] VITALS: BP 86/54; PULSE 90; RESP 17; O2SAT 99
[2018-12-18 21:46] VITALS: BMI 26.2
[2018-12-18 21:51] VITALS: BMI 26.2
[2018-12-18 22:08] VITALS: BP 116/61; PULSE 101; RESP 16; TEMP 36.8; O2SAT 97
--- NOTE | 2018-12-18 22:36 | PCM.HPOB.BLA ---
History and Physical Date of Admission: 12/18/18 Jeri Osorio, a 23 year old female at 22 4/7 wk EGA by EDC of 04/19/19. Presented to [facility] emergency dept with CC of N/V and not able to tolerate po for the last several days. She denies any fevers, but states feels hot after vomiting. She denies any cough or cold symptoms. Daughter was sick and vomiting for one day. No one else is ill at home. She admitted at [facility] appt that she uses marijuana daily and plans to continue daily use. She has a history of positive tox screen earlier in for both THC and amphetamine. Denies any drug use at present, other than Zofran which she says hasn't helped in the last few days. Has prior normal after 1 hour of labor. ALLERGIES: Macrobid, Hives and/or rash MEDICATIONS HISTORY: Zofran ODT Prozac 20 mg po daily REVIEW OF SYSTEMS: GENERAL - Denies fever, or chills SKIN - Denies skin changes EYES - Denies visual changes EARS - Denies difficulty hearing NOSE - Denies nasal congestion or bleeding MOUTH - Denies sore throat or difficulty swallowing but states dry mouth, thirst NECK - Denies pain or swelling RESPIRATORY - Denies shortness of breath or wheezing CARDIOVASCULAR - Denies palpitations or chest pain GASTROINTESTINAL - nausea, vomiting and can't keep anything down. GENITOURINARY - Denies dysuria, frequency of urination, incontinence of urine MUSCULOSKELETAL - back painful all over. Sides of abdomen also sore NEUROLOGICAL - Denies localized numbness or weakness PSYCHIATRIC - has depression / anxiety ENDOCRINE - Denies heat or cold intolerance, weight loss or gain PAST HISTORY: Breast/Ovarian/Colon Cancers - unknown Infections - Chicken pox Illnesses - anxiety/depression Accidents - no injuries of consequence History of Abnormal PAPS - Denies Hospitalizations - Childbirth SURGICAL HISTORY: 1. wisdom teeth MENSTRUAL HISTORY: LMP Known?- Approximate-Month Known, Regularity - Irregular, LMP - 07/29/18, Age Onset Menarche - 14 PAST PREGNANCIES: Total Pregnancies - 2; Full Term Pregnancies - 1; Premature - 0; Abortions, Induced - 0; Abortions, Spontaneous - 0; Ectopics - 0; Multiple Births - 0; Living Children - 1 FAMILY HISTORY: Noncontributory SOCIAL HISTORY: Alcohol Use - denies Smoking - 1/2 pack/day Diet - moderate, balanced diet Lifestyle - single Exercise - minimal Illicit Drug Use - marijuana Sexual Activity - single sexual partner Spouse-Sig Other Name - Reji Zazueta Spouse-Sig Other Occupation - [employer] - [employer] PHYSICAL EXAMINATION BP- 116/61 Temp 98.3 Pulse 101 Weight- 64.95 Kg (increase of 5 Kg since NOB appt) Height- 62.50 inch CONSTITUTIONAL - appears uncomfortable Curled into position. Wrapped in blanket. SKIN - Pale appearance. HEENT - Normocephalic, PERRLA, EOMI NECK - no nuchal rigidity LUNGS - CTA x2 without wheezes, crackles or rales CARDIAC - Regular rate and rhythm without rubs, murmurs, or gallops BREAST - deferred ABDOMEN - gravid. BACK - painful throughout, no CVAT NEUROLOGICAL - Cranial nerves II-XII grossly intact PSYCHIATRIC - A and O to time, place, person, mood and affect ASSESSMENT: 1. Nausea, Vomiting Dehydration. PLAN BY DIAGNOSIS: 1.Nausea, Vomiting Dehydration. -- no improvement with IV hydration in ED, or Reglan IV --Admit overnight for short stay observation, IV hydratinog and antiemetics -- CMP, CBC, and urine tox screen to evaluate potential cause of sx at 22 1/2 wk 2. Back pain, abdominal pain. Both likely muscular achiness due to frequent emesis --Tylenol PO or Rectal dose --K pad to back prn. 3. H/O drug use -- Tox screen Patient states hoping for discharge to home by noon tomorrow to corn picker her baby.
--- NOTE | 2018-12-18 22:52 | HP.PCM_ITS ---
History and Physical Date of Admission: 12/18/18 Jeri Osorio, a 23 year old female at 22 4/7 wk EGA by EDC of 04/19/19. Presented to [facility] emergency dept with CC of N/V and not able to tolerate po for the last several days. She denies any fevers, but states feels hot after vomiting. She denies any cough or cold symptoms. Daughter was sick and vomiting for one day. No one else is ill at home. She admitted at [facility] appt that she uses marijuana daily and plans to continue daily use. She has a history of positive tox screen earlier in for both THC and amphetamine. Denies any drug use at present, other than Zofran which she says hasn't helped in the last few days. Has prior normal after 1 hour of labor. ALLERGIES: Macrobid, Hives and/or rash MEDICATIONS HISTORY: Zofran ODT Prozac 20 mg po daily REVIEW OF SYSTEMS: GENERAL - Denies fever, or chills SKIN - Denies skin changes EYES - Denies visual changes EARS - Denies difficulty hearing NOSE - Denies nasal congestion or bleeding MOUTH - Denies sore throat or difficulty swallowing but states dry mouth, thirst NECK - Denies pain or swelling RESPIRATORY - Denies shortness of breath or wheezing CARDIOVASCULAR - Denies palpitations or chest pain GASTROINTESTINAL - nausea, vomiting and can't keep anything down. GENITOURINARY - Denies dysuria, frequency of urination, incontinence of urine MUSCULOSKELETAL - back painful all over. Sides of abdomen also sore NEUROLOGICAL - Denies localized numbness or weakness PSYCHIATRIC - has depression / anxiety ENDOCRINE - Denies heat or cold intolerance, weight loss or gain PAST HISTORY: Breast/Ovarian/Colon Cancers - unknown Infections - Chicken pox Illnesses - anxiety/depression Accidents - no injuries of consequence History of Abnormal PAPS - Denies Hospitalizations - Childbirth SURGICAL HISTORY: 1. wisdom teeth MENSTRUAL HISTORY: LMP Known?- Approximate-Month Known, Regularity - Irregular, LMP - 07/29/18, Age Onset Menarche - 14 PAST PREGNANCIES: Total Pregnancies - 2; Full Term Pregnancies - 1; Premature - 0; Abortions, Induced - 0; Abortions, Spontaneous - 0; Ectopics - 0; Multiple Births - 0; Living Children - 1 FAMILY HISTORY: Noncontributory SOCIAL HISTORY: Alcohol Use - denies Smoking - 1/2 pack/day Diet - moderate, balanced diet Lifestyle - single Exercise - minimal Illicit Drug Use - marijuana Sexual Activity - single sexual partner Spouse-Sig Other Name - Reji Zazueta Spouse-Sig Other Occupation - [employer] - [employer] PHYSICAL EXAMINATION BP- 116/61 Temp 98.3 Pulse 101 Weight- 64.95 Kg (increase of 5 Kg since NOB appt) Height- 62.50 inch CONSTITUTIONAL - appears uncomfortable Curled into position. Wrapped in blanket. SKIN - Pale appearance. HEENT - Normocephalic, PERRLA, EOMI NECK - no nuchal rigidity LUNGS - CTA x2 without wheezes, crackles or rales CARDIAC - Regular rate and rhythm without rubs, murmurs, or gallops BREAST - deferred ABDOMEN - gravid. BACK - painful throughout, no CVAT NEUROLOGICAL - Cranial nerves II-XII grossly intact PSYCHIATRIC - A and O to time, place, person, mood and affect ASSESSMENT: 1. Nausea, Vomiting Dehydration. PLAN BY DIAGNOSIS: 1.Nausea, Vomiting Dehydration. -- no improvement with IV hydration in ED, or Reglan IV --Admit overnight for short stay observation, IV hydratinog and antiemetics -- CMP, CBC, and urine tox screen to evaluate potential cause of sx at 22 1/2 wk 2. Back pain, abdominal pain. Both likely muscular achiness due to frequent emesis --Tylenol PO or Rectal dose --K pad to back prn. 3. H/O drug use -- Tox screen Patient states hoping for discharge to home by noon tomorrow to cotton picker her baby.
[2018-12-18] MEDS: Dext 5%-0.45% NS 1,000 ML 100 ML IV (23:14)
[2018-12-18] MEDS: Acetaminophen 325 MG Tablet 650 MG PO (23:20)
[2018-12-18] MEDS: Zolpidem Tartrate 5 MG Tablet PO (23:20)
[2018-12-18 23:31] LABS: ALB/GLOB Ratio 0.7 RATIO (0.9-2.4); AST(SGOT) 18 U/L (15-37); Alanine Aminotransfer ALT/SGPT 20 U/L (13-56); Albumin, Serum 2.9 g/dL (3.2-5.0); Alkaline Phosphatase 68 U/L (45-117); Anion Gap 6 (5-15); BUN 8 mg/dL (7-18); BUN/Creat Ratio 18.6 RATIO (10-20); Chloride 105 mmol/L (98-107); Creatinine, Serum 0.43 mg/dL (0.55-1.02); EST Glomerular Filtration Rate 192 mL/min (>60); Est Glom Filt Rate - Afr Amer 232 mL/min (>60); Estimated Creatinine Clearance 160.93 ml/min; Globulin 4.3 g/dL (2.2-4.2); Glucose 87 mg/dL (74-106); Potassium 3.5 mmol/L (3.5-5.1); Protein, Total 7.2 g/dL (6.4-8.2); Sodium Level 137 mmol/L (136-145)
[2018-12-19 00:24] LABS: Amphetamine Urine VISTA POSITIVE (<1000 ng/mL); Barbiturate Urine VISTA NEGATIVE (< 200 ng/mL); Benzodiazepine Urine VISTA NEGATIVE (< 200 ng/mL); Cocaine Urine VISTA NEGATIVE (< 300 ng/mL); Ecstacy Urine VISTA POSITIVE (< 500 ng/mL); Methadone Urine VISTA NEGATIVE (< 300 ng/mL); PCP Urine VISTA NEGATIVE (< 25 ng/mL); THC Urine VISTA POSITIVE (< 50 ng/mL); Vista UDS pH Range 5
[2018-12-19 04:47] VITALS: BP 112/58; PULSE 85; RESP 16; TEMP 37; O2SAT 99
[2018-12-19] MEDS: Acetaminophen 325 MG Tablet 650 MG PO (06:12)
[2018-12-19 06:23] LABS: Hematocrit 32.3 % (37-47); Mean Corp Hgb Conc 34.1 g/gl (32-36); Mean Corpuscular Hgb 30.4 pg (27.0-32.0); Mean Corpuscular Volume 89.2 fL (81-99); Platelet Count 225 K/mm3 (150-450); RBC Distribution Width CV 13.9 % (11.6-14.6); RBC Distribution Width SD 45.8 fl (35.1-43.9); Red Blood Count 3.62 M/mm3 (4.2-5.4); White Blood Count 7.7 K/mm3 (4.4-11.0)
[2018-12-19 06:27] LABS: Scan Indicated on CBC? Y/N NO
--- NOTE | 2018-12-19 06:36 | PCM.PN.OB ---
Patient Problems: Active and Suspected Problems (Last Updated 12/19/18 @ 06:27 by Aislinn Marte MD) Hyperemesis gravidarum (Acute) Moderate dehydration (Acute) Ketosis (Acute) Marijuana abuse, continuous (Acute) Methamphetamine abuse (Acute) Amphetamine abuse (Acute) Subjective: HD#1 Per nursing notes, slept well. Ambien taken for rest. States a little emesis after eating ice chips last night. No meds given for this. Objective: Lying on R side as at time of admission. IV fluids running. Speech laced with obscenities. - Physical Exam General: Alert, Oriented x3, No apparent distress HEENT: Atraumatic Neck: Supple Abdomen: Gravid Vital Signs Temp Pulse Resp BP Pulse Ox 98.6 F 85 16 112/58 L 99 12/19/18 04:47 12/19/18 04:47 12/19/18 04:47 12/19/18 04:47 12/19/18 04:47 Oxygen Delivery Method Room Air Weight: 64.954 kg Body Mass Index (BMI) 26.2 Intake and Output for Last 24 Hours 12/17/18 12/18/18 12/19/18 23:59 23:59 23:59 Intake Total 350 / 350 570 / 570 Output Total 500 / 500 Balance -150 / -150 570 / 570 Laboratory Tests Past 24 Hrs 12/18/18 12/18/18 12/18/18 18:15 20:00 20:00 WBC RBC Hgb Hct MCV MCH MCHC RDW RDW Differential Plt Count MPV Sodium 137 Potassium 3.5 Chloride 105 Carbon Dioxide 26.0 Anion Gap 6 BUN 8 Creatinine 0.43 L Estim Creat Clear Calc 160.93 Est GFR (MDRD) Af Amer 232 Est GFR (MDRD) Non-Af 192 BUN/Creatinine Ratio 18.6 Glucose 87 Calcium 8.0 L Total Bilirubin 0.30 AST 18 ALT 20 Alkaline Phosphatase 68 Total Protein 7.2 Albumin 2.9 L Globulin 4.3 H Albumin/Globulin Ratio 0.7 L Urine Color Yellow Urine Clarity Sl. Cloudy Urine pH 6.0 Ur Specific [place] 1.025 Urine Protein 30 H Urine Glucose (UA) 50 H Urine Ketones 150 H Urine Occult Blood Negative Urine Nitrite Negative Urine Bilirubin 1 H Urine Urobilinogen Normal Ur Leukocyte Esterase 25 H Urine RBC 0-5 SEEN Urine WBC 0-5 SEEN Ur Squamous Epith Cells 10-25 SEEN Urine Bacteria 1+ Urine Mucus 2+ Urine Opiates Screen NEGATIVE Urine Methadone Screen NEGATIVE Ur Barbiturates Screen NEGATIVE Ur Phencyclidine Scrn NEGATIVE Ur Amphetamines Screen POSITIVE H U Methamphetamin-MDMA POSITIVE H U Benzodiazepines Scrn NEGATIVE Urine Cocaine Screen NEGATIVE U Cannabinoids Screen POSITIVE H Ur Drug Screen Comment 12/19/18 05:52 WBC 7.7 RBC 3.62 L Hgb 11.0 L Hct 32.3 L MCV 89.2 MCH 30.4 MCHC 34.1 RDW 13.9 RDW Differential 45.8 H Plt Count 225 MPV 11.0 Sodium Potassium Chloride Carbon Dioxide Anion Gap BUN Creatinine Estim Creat Clear Calc Est GFR (MDRD) Af Amer Est GFR (MDRD) Non-Af BUN/Creatinine Ratio Glucose Calcium Total Bilirubin AST ALT Alkaline Phosphatase Total Protein Albumin Globulin Albumin/Globulin Ratio Urine Color Urine Clarity Urine pH Ur Specific [place] Urine Protein Urine Glucose (UA) Urine Ketones Urine Occult Blood Urine Nitrite Urine Bilirubin Urine Urobilinogen Ur Leukocyte Esterase Urine RBC Urine WBC Ur Squamous Epith Cells Urine Bacteria Urine Mucus Urine Opiates Screen Urine Methadone Screen Ur Barbiturates Screen Ur Phencyclidine Scrn Ur Amphetamines Screen U Methamphetamin-MDMA U Benzodiazepines Scrn Urine Cocaine Screen U Cannabinoids Screen Ur Drug Screen Comment Medical Necessity - Tobacco Use Smoking Status: Current every day smoker Tobacco Use: Cigarettes Assessment/Plan All Active Problems (Last Updated 12/19/18 @ 06:27 by Aislinn Marte MD) Hyperemesis gravidarum (Acute) Moderate dehydration (Acute) Ketosis (Acute) Marijuana abuse, continuous (Acute) Methamphetamine abuse (Acute) Amphetamine abuse (Acute) Rubella non-immune status, antepartum (Resolved) HD#1 22 4/7 wk EGA #1) Nausea, vomiting. Small emesis after ice chips last pm. States too early to know if she is still nauseated or will vomit. no antiemetics given on floor. IV fluids running. #2) Continuous marijuana use. Tox screen also positive for amphetamines, methamphetamines Advised of findings. Advised to stop using marijuana in . Denies abuse of other substances. Advised if no other drug used, then her marijuana is tainted and REALLY is not safe for her or her baby. She has remained convinced in her limited office visits that marijuana is OK to use throughout and has had no intention to stop marijuana in past. States uses it to calm herself. 3#) Depression / Anxiety. Refuses counseling offered. Has RX for Fluoxetine but has not picked this up as she does not go to pharmacy when it's been sent in / called in. Angry with pharmacy for this. Advised that if she does not pharmacy picking tech when ready, pharmacy will return the med to stock. Continue care for now. No dischg until tolerating PO. Will need social service consult in hospital and when presents for delivery given her drug abuse.
--- NOTE | 2018-12-19 07:16 | PCM.DC ---
- Discharge Diagnoses Current Active Problems: Current Active and Chronic Problems (Last Updated 12/19/18 @ 06:27 by Aislinn Marte MD) Amphetamine abuse (Acute) Methamphetamine abuse (Acute) Marijuana abuse, continuous (Acute) Hyperemesis gravidarum (Acute) Moderate dehydration (Acute) Ketosis (Acute) You will use the following diet at home:: No restrictions Discharge Activity: May Shower, May Take a Tub Bath Return to work on:: 12/20/18 May resume sexual activity in: No Restrictions Lifting Restrictions: limit to under 20 # during Call your doctor if you observe: Fever of 101 or Higher, Inability to urinate, - - uncontrolled nausea, vomiting. Allergies/Adverse Reactions: Allergies nitrofurantoin Allergy (Intermediate, Verified 12/18/18 17:53) Rash Medications to take at Discharge Ondansetron [Ondansetron Odt] 4 mg PO Q8H PRN PRN 12/18/18 Pnv No.95/Ferrous Fum/Folic AC [ Formula Tablet] 1 tab PO DAILY 12/18/18 Fluoxetine [Prozac] 20 mg PO DAILY 30 Days #30 capsule 12/19/18 The following prescriptions were given: Fluoxetine [Prozac] 20 mg PO DAILY 30 Days #30 capsule Primary Care Physician: Vick Dong MD [Primary Care Provider] - Test Results: Test results from this visit will be discussed in further detail at your follow-up appointment, if applicable. Please Follow Up With: Brian Goff MD - [phone] When: within 1 week for ultrasound and visit. CALL to schedule
--- NOTE | 2018-12-19 07:21 | DCINST_ITS ---
- Discharge Diagnoses Current Active Problems: Current Active and Chronic Problems (Last Updated 12/19/18 @ 06:27 by Aislinn Marte MD) Amphetamine abuse (Acute) Methamphetamine abuse (Acute) Marijuana abuse, continuous (Acute) Hyperemesis gravidarum (Acute) Moderate dehydration (Acute) Ketosis (Acute) You will use the following diet at home:: No restrictions Discharge Activity: May Shower, May Take a Tub Bath Return to work on:: 12/20/18 May resume sexual activity in: No Restrictions Lifting Restrictions: limit to under 20 # during Call your doctor if you observe: Fever of 101 or Higher, Inability to urinate, - - uncontrolled nausea, vomiting. Allergies/Adverse Reactions: Allergies nitrofurantoin Allergy (Intermediate, Verified 12/18/18 17:53) Rash Medications to take at Discharge Ondansetron [Ondansetron Odt] 4 mg PO Q8H PRN PRN 12/18/18 Pnv No.95/Ferrous Fum/Folic AC [ Formula Tablet] 1 tab PO DAILY 12/18/18 Fluoxetine [Prozac] 20 mg PO DAILY 30 Days #30 capsule 12/19/18 The following prescriptions were given: Fluoxetine [Prozac] 20 mg PO DAILY 30 Days #30 capsule Primary Care Physician: Vick Dong MD [Primary Care Provider] - Test Results: Test results from this visit will be discussed in further detail at your follow- up appointment, if applicable. Please Follow Up With: Brian Goff MD - [phone] When: within 1 week for ultrasound and visit. CALL to schedule
[2018-12-19 09:23] VITALS: BP 91/50; PULSE 98; RESP 18; TEMP 36.7; O2SAT 96
[2018-12-19] MEDS: Dext 5%-0.45% NS 1,000 ML 100 ML IV (09:25)
--- NOTE | 2018-12-21 14:58 | CM.ED ---
Social Work Note Was not able to see pt d/t timeframe of referral. Noted that mother was positive for meth and marijuana upon admission and upon chart review found that she was positive for the same substance when she delivered her child in 2018. Placed call to [facility] and notified Lynnette and that the physician had also documented she was not consistent with her care up to this point. Lynnette indicates it will likely not be made an active case at this time, but it will be documented. SW to continue to follow and assist as needed. Randi Jeronimo, ASSISTANT PLANT CONTROL OPERATOR, JULIENNE
== END 2018-12-19 11:44 | disposition home or self-care (01) ==
LOC: ED 20:40 → MS3 20:55
PROVIDERS: Admitting Provider Obstetrics & Gynecology; Emergency Provider Emergency Medicine; Family Provider Family Medicine; PCP Family Medicine; Referring Provider Obstetrics & Gynecology; Visit Provider Obstetrics & Gynecology
DX: O21.1 Hyperemesis gravidarum with metabolic disturbance (principal); E86.0 Dehydration; O99.322 Drug use complicating pregnancy, second trimester; F12.10 Cannabis abuse, uncomplicated; F15.10 Other stimulant abuse, uncomplicated; O99.332 Smoking (tobacco) complicating pregnancy, second trimester; F17.210 Nicotine dependence, cigarettes, uncomplicated; Z3A.22 22 weeks gestation of pregnancy; O99.342 Other mental disorders complicating pregnancy, second trimester; F32.9 Major depressive disorder, single episode, unspecified; F41.9 Anxiety disorder, unspecified
CPT/HCPCS: 36415; 80053; 80307; 81001; 85027; 96361; 96374; 96375; 96376; 99218; 99282; J7030; A4216; G0378; J3490; J7799

== ENCOUNTER 2019-02-13 22:10 | Emergency (ER) | payer MEDICAID, SELFPAY ==
[2019-02-13 22:11] VITALS: BP 136/89; PULSE 125; RESP 16; TEMP 36.7; O2SAT 98; BMI 27.1
--- NOTE | 2019-02-13 22:14 | RAD_ITS ---
STUDY: X-RAY - LEFT FOOT CLINICAL: Female, 23 years old. Lateral pain and bruising. Status post fall. TECHNIQUE: 3 view(s) of the foot. COMPARISON: X-ray ankle. FINDINGS: Normal talus, calcaneus, and tarsal bones. Normal visualized subtalar, talonavicular, calcaneocuboid, tarsal and tarsometatarsal articulations. Normal metatarsi. Normal metatarsophalangeal joint of the great toe. Normal tibial and fibular sesamoid bones. Normal interphalangeal joint of the great toe. Normal phalanges of the great toe. Normal second through fifth metatarsophalangeal joints. Normal interphalangeal joints and phalanges of the lesser toes. There is nonspecific soft tissue swelling. RAD/Foot min 3 Views IMPRESSION: No demonstrated fracture, dislocation, or destructive osseous lesion. Electronically Signed: Donnie Shea MD at 22:52 EDT , Service support ,
--- NOTE | 2019-02-13 22:14 | RAD_ITS ---
STUDY: X-RAY - LEFT ANKLE REASON FOR EXAM: Female, 23 years old. Status post fall. Pain in the lateral foot and ankle. TECHNIQUE: 3 view(s) of the ankle. COMPARISON: X-ray foot. FINDINGS: Normal visualized distal tibia and fibula. As seen on AP view, there is an oblique linear lucency overlying the lateral cortex of the distal fibular shaft, which is likely to represent a prominent vascular channel. Normal medial and lateral malleoli. Normal tibiotalar articulation and ankle mortise. Normal visualized talus and calcaneus. The visualized subtalar, talonavicular, calcaneocuboid and tarsal articulations are normal. The soft tissue structures are unremarkable. RAD/Ankle min 3 Views IMPRESSION: No demonstrated fracture, dislocation, or destructive osseous lesion. Electronically Signed: Donnie Shea MD at 22:51 EDT , Service support ,
--- NOTE | 2019-02-13 23:18 | ED.VISSUMM ---
- ER Visit Summary Date of Service: 02/13/19 Chief Complaint: Tripped and fell twisting left ankle and foot complaining of left lateral malleolus pain History of Present Illness: The patient is a 23 F currently 28 weeks . Due date 04/19/2019. G2, P1 Ab0. Patient states she was carrying her daughter when she tripped fell and twisted her left ankle and foot. Denies hitting her abdomen. Did not hit her head no LOC. Denies other injuries. Said this occurred around 5 PM today. She is having difficulty walking. No prior history or surgery to the left foot or ankle. Physical Examination: Well-appearing young female. Vital signs are stable afebrile. HEENT exam atraumatic nontender. Pupils round reactive light. C-spine nontender. Lungs clear to auscultation bilaterally. Heart regular rhythm no murmur. Chest wall nontender. Abdomen nontender, nondistended normal bowel sounds no peritoneal signs. Gravid nontender uterus. Remedies moves all 4. Neurovascular intact. Left hip and knee are nontender with normal range of motion. Left ankle mild swelling the left lateral malleolus. There is tenderness intact. Dorsi plantarflexion intact. Foot has mild tenderness in the proximal medial and. Is no gross bony deformity. Normal DP pulse. Able to wiggle her toes. Right lower extremity and both upper extremities are nontender. Back nontender. Neurologically she is awake and alert. Test Results: X-ray of the left ankle shows no acute abnormality 3 views read by myself X-ray of the left foot again reveals no acute abnormality read by myself. heart tones are pending. Emergency Department Course and Treatment: female who has a left lateral malleolus sprain. Aircast and crutches. Treatment Plan: Ice and elevate. Tylenol for pain. Follow-up if not improving. Disposition: Discharge Impression: Fall Left ankle sprain 28 weeks This note was generated with [employer] dictation software. It may contain incorrect words, spelling, and punctuation that were not noted in review of the chart prior to signing ED Disposition - Plan for ED Patient: Referrals: Vick Dong MD [Primary Care Provider] -
--- NOTE | 2019-02-13 23:20 | ED.DEP ---
ED Disposition - Plan for ED Patient: Disposition: Home or Assisted Living Instructions: ED Sprain Foot, ED Sprain Ankle W X Ray Referrals: Vick Dong MD [Primary Care Provider] - As Needed Additional Instructions: Increase activity weightbearing as tolerated. Ice and elevate left ankle. Tylenol for pain.
[2019-02-13 23:32] VITALS: BP 118/60; PULSE 102; RESP 18; O2SAT 96
== END 2019-02-13 23:33 | disposition home or self-care (01) ==
PROVIDERS: Emergency Provider Emergency Medicine; Family Provider Family Medicine; PCP Family Medicine
DX: O99.89 Other specified diseases and conditions complicating pregnancy, childbirth and the puerperium (principal); S93.402A Sprain of unspecified ligament of left ankle, initial encounter; W01.0XXA Fall on same level from slipping, tripping and stumbling without subsequent striking against object, initial encounter; Y93.89 Activity, other specified; Y92.9 Unspecified place or not applicable; O99.333 Smoking (tobacco) complicating pregnancy, third trimester; Z3A.28 28 weeks gestation of pregnancy
CPT/HCPCS: 73610; 73630; 99284

== ENCOUNTER 2019-04-03 17:35 | Outpatient (CLI) | payer MEDICAID, SELFPAY ==
[2019-04-03 18:09] VITALS: BMI 27.1
[2019-04-03 18:34] LABS: ROM Internal Control Test YES-OK TO RESULT pt. (Internal QC)
[2019-04-03 18:35] LABS: ROM Patient Test Negative (Negative)
--- NOTE | 2019-04-03 22:18 | OB.TRI.NOTE ---
History of Present Illness Date of Service: 04/03/19 Was patient seen by the physician?: No Reason For Visit: R/O SROM Date of Service: 04/03/19 Final MADAN: 04/19/19 Gestational age: 37 Weeks and 5 Days History of Present Illness: Patient is a 24 y/o presenting to triage reporting concerns of LOF. Patient reports gush of clear fluid x 1. Patient is 37+5 weeks by dating. Patient denies VB, vaginal discharge or DFM. Patient course complicated by scant care with a late transfer of care to our practice at 30 weeks x 3 visits. Patient had a hx of methamphetamine use in a previous and was positive for cannabinoid use in this . Allergies nitrofurantoin Allergy (Intermediate, Verified 04/03/19 18:06) Rash - Pertinent Past Medical History Medical History: Past Medical History (Last Updated 12/19/18 @ 06:27 by Aislinn Marte MD) History of drug abuse in remission (Chronic) marijuana and meth in past, random tox screens done. positive marijuana in Active drug dependence Amphetamine abuse Methamphetamine abuse Laboratory Studies: Laboratory Tests 04/03/19 Range/Units 17:50 Vag Amniotic Fld Detect Negative (Negative) Review of Systems Unable to obtain accurate/complete ROS d/t: ROS per nursing note Physical Exam Vitals: VSS, Afebrile - see nursing note for PE NST - FHR Rate Baby A Baseline: 135 Variability:: Moderate Accelerations:: 15 x 15 Decelerations:: None NST Reactive:: Yes, Appropriate for gestational age FHR Category:: Category I Uterine Activity:: No contractions noted on tocometer Impression/Plan 24 y/o @ 37.5 wks, Category I FHT, SROM - ruled out P: 1) ROM Plus negative - no evidence of SROM or labor at this time 2) [facility] teaching and Labor Precautions reviewed 3) Patient to follow-up in our office for her next visit Melissa FAJARDO
== END 2019-04-03 18:55 | disposition home or self-care (01) ==
LOC: WPOUT 17:54 → WP 17:54
PROVIDERS: Advanced Practice Midwife; Family Provider Family Medicine; PCP Family Medicine; Referring Provider Obstetrics & Gynecology; Visit Provider Obstetrics & Gynecology
DX: O47.1 False labor at or after 37 completed weeks of gestation (principal); O99.323 Drug use complicating pregnancy, third trimester; F12.90 Cannabis use, unspecified, uncomplicated; F15.11 Other stimulant abuse, in remission; Z3A.37 37 weeks gestation of pregnancy
CPT/HCPCS: 59025; 59050; 84112; 99218; G0378

== ENCOUNTER 2019-04-08 12:35 | Outpatient (CLI) | payer MEDICAID, SELFPAY ==
[2019-04-08 13:14] VITALS: BMI 27.2
[2019-04-08 13:42] LABS: ROM Internal Control Test YES-OK TO RESULT pt. (Internal QC); ROM Patient Test Negative (Negative)
[2019-04-08] MEDS: Lactated Ringers 1,000 ML 999 ML IV (14:40)
[2019-04-08 15:07] LABS: Prothrombin Time (Protime)PT. 12.9 SECONDS (11.7-14.9)
[2019-04-08 15:08] LABS: Fibrinogen 482 mg/dl (203-444); Partial Thromboplast Time 24.9 Seconds (24.1-36.2)
[2019-04-08 15:12] LABS: Absolute Lymphocyte Count 2.06 X10^3/ul (0.83-4.51); Absolute Neutrophil Count 5.9 X10^3/uL (2.0-7.7); Basophil# 0.02 X10^3/uL; Basophil% 0.2 % (0-1); Eosinophil# 0.23 X10^3/uL; Eosinophils% 2.6 % (0-5); Hematocrit 31.8 % (37-47); Hemoglobin 10.1 g/dl (12.0-15.0); Lymphocyte # 2.06 X10^3/ul (4.0); Lymphocyte % 23.2 % (19-41); Mean Corp Hgb Conc 31.8 g/gl (32-36); Mean Corpuscular Hgb 25.5 pg (27.0-32.0); Mean Corpuscular Volume 80.3 fL (81-99); Mean Platelet Vol. 12.2 fl (6.2-12.0); Monocyte# 0.64 X10^3/uL; Monocyte% 7.2 % (0-10); Neutrophil # 5.92 X10^3/uL (2.7-7.7); Neutrophil % 66.6 % (47-70); Platelet Count 270 K/mm3 (150-450); RBC Distribution Width CV 15.4 % (11.6-14.6); RBC Distribution Width SD 43.6 fl (35.1-43.9); Red Blood Count 3.96 M/mm3 (4.2-5.4); White Blood Count 8.9 K/mm3 (4.4-11.0)
[2019-04-08 15:28] LABS: Amphetamine Urine VISTA NEGATIVE (<1000 ng/mL); Barbiturate Urine VISTA NEGATIVE (< 200 ng/mL); Benzodiazepine Urine VISTA NEGATIVE (< 200 ng/mL); Cocaine Urine VISTA NEGATIVE (< 300 ng/mL); Ecstacy Urine VISTA NEGATIVE (< 500 ng/mL); Methadone Urine VISTA NEGATIVE (< 300 ng/mL); PCP Urine VISTA NEGATIVE (< 25 ng/mL); THC Urine VISTA POSITIVE (< 50 ng/mL); Vista UDS pH Range 6
[2019-04-08 15:40] LABS: POSITIVE COUNT NO; POSITIVE DIFFERENTIAL NO; POSITIVE MORPHOLOGY NO
--- NOTE | 2019-04-08 17:50 | OB.TRI.HP_ITS ---
History of Present Illness Date of Service: 04/08/19 Was patient seen by the physician?: Yes Reason For Visit: R/O SROM Date of Service: 04/08/19 Final MADAN: 04/19/19 Gestational age: 38 Weeks and 3 Days History of Present Illness: 24-year-old female presents complaining of waking up in a puddle of fluid today. She states she took a shower and then continue to have fluid leaking out of her vagina on the way to the hospital. She is having some contractions over the past week. They feel more intense today. She denies any gross vaginal bleeding. She is had good movement. Denies any drug use other than marijuana during the . Allergies nitrofurantoin Allergy (Intermediate, Verified 04/08/19 13:13) Rash - Pertinent Past Medical History Medical History: Past Medical History (Last Updated 12/19/18 @ 06:27 by Aislinn Marte MD) History of drug abuse in remission (Chronic) marijuana and meth in past, random tox screens done. positive marijuana in Active drug dependence Amphetamine abuse Methamphetamine abuse Laboratory Studies: Laboratory Tests 04/08/19 04/08/19 04/08/19 Range/Units 15:05 14:40 14:40 WBC (4.4-11.0) K/mm3 RBC (4.2-5.4) M/mm3 Hgb (12.0-15.0) g/dl Hct (37-47) % MCV (81-99) fL MCH (27.0-32.0) pg MCHC (32-36) g/gl RDW (11.6-14.6) % RDW Differential (35.1-43.9) fl Plt Count (150-450) K/mm3 MPV (6.2-12.0) fl Immature Gran % (Auto) (0.0-0.9) % Neut % (Auto) (47-70) % Lymph % (Auto) (19-41) % [place] % (Auto) (0-10) % Eos % (Auto) (0-5) % Baso % (Auto) (0-1) % Absolute Neuts (auto) (2.0-7.7) X10^3/uL Absolute Lymphs (auto) (0.83-4.51) X10^3/ul Total Counted PT 12.9 (11.7-14.9) SECONDS INR 1.0 APTT 24.9 (24.1-36.2) Seconds Fibrinogen 482 H (203-444) mg/dl Vag Amniotic Fld Detect (Negative) Urine Opiates Screen NEGATIVE (< 300 ng/mL) Urine Methadone Screen NEGATIVE (< 300 ng/mL) Ur Barbiturates Screen NEGATIVE (< 200 ng/mL) Ur Phencyclidine Scrn NEGATIVE (< 25 ng/mL) Ur Amphetamines Screen NEGATIVE (<1000 ng/mL) U Methamphetamin-MDMA NEGATIVE (< 500 ng/mL) U Benzodiazepines Scrn NEGATIVE (< 200 ng/mL) Urine Cocaine Screen NEGATIVE (< 300 ng/mL) U Cannabinoids Screen POSITIVE H (< 50 ng/mL) Ur Drug Screen Comment Blood Type Cancelled A1 Antigen Typing Cancelled Rho(D) Type Cancelled Antibody Screen Cancelled 04/08/19 04/08/19 Range/Units 14:40 13:00 WBC 8.9 (4.4-11.0) K/mm3 RBC 3.96 L (4.2-5.4) M/mm3 Hgb 10.1 L (12.0-15.0) g/dl Hct 31.8 L (37-47) % MCV 80.3 L (81-99) fL MCH 25.5 L (27.0-32.0) pg MCHC 31.8 L (32-36) g/gl RDW 15.4 H (11.6-14.6) % RDW Differential 43.6 (35.1-43.9) fl Plt Count 270 (150-450) K/mm3 MPV 12.2 H (6.2-12.0) fl Immature Gran % (Auto) 0.200 (0.0-0.9) % Neut % (Auto) 66.6 (47-70) % Lymph % (Auto) 23.2 (19-41) % [place] % (Auto) 7.2 (0-10) % Eos % (Auto) 2.6 (0-5) % Baso % (Auto) 0.2 (0-1) % Absolute Neuts (auto) 5.9 (2.0-7.7) X10^3/uL Absolute Lymphs (auto) 2.06 (0.83-4.51) X10^3/ul Total Counted Not Reportable PT (11.7-14.9) SECONDS INR APTT (24.1-36.2) Seconds Fibrinogen (203-444) mg/dl Vag Amniotic Fld Detect Negative (Negative) Urine Opiates Screen (< 300 ng/mL) Urine Methadone Screen (< 300 ng/mL) Ur Barbiturates Screen (< 200 ng/mL) Ur Phencyclidine Scrn (< 25 ng/mL) Ur Amphetamines Screen (<1000 ng/mL) U Methamphetamin-MDMA (< 500 ng/mL) U Benzodiazepines Scrn (< 200 ng/mL) Urine Cocaine Screen (< 300 ng/mL) U Cannabinoids Screen (< 50 ng/mL) Ur Drug Screen Comment Blood Type A1 Antigen Typing Rho(D) Type Antibody Screen Physical Exam General: Alert, Cooperative, - - Appeared uncomfortable when she arrived, however upon reevaluation at 5:40 PM, patient was resting comfortably in the bed. 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 Upon cervical exam, there is no return of fluid when I placed gentle counterpressure against the skull. In addition, her ROM plus test was negative. She has had no further leaking since she has been here and I discussed with her clinically there is no evidence of rupture membranes. A bag of rasmussen can be appreciated upon cervical exam. In addition, over several hours she has not changed her cervix significantly and does not have regular contractions. I discussed with the patient she is not in active labor at this time and recommended discharge home. She can return if active labor or any other concerns. I did offer the patient active induction of labor due to favorable cervix and her significant discomfort. Patient is receptive to this and would like to proceed. She was scheduled for 39 weeks. Benefits and alternatives were discussed, and consent form was reviewed and signed. heart tones are reassuring and reactive.
== END 2019-04-08 17:45 | disposition home or self-care (01) ==
LOC: WPOUT 13:06 → WP 13:06
PROVIDERS: Family Provider Family Medicine; PCP Family Medicine; Referring Provider Obstetrics & Gynecology; Visit Provider Obstetrics & Gynecology
DX: O47.1 False labor at or after 37 completed weeks of gestation (principal); Z3A.38 38 weeks gestation of pregnancy; Z88.1 Allergy status to other antibiotic agents; F15.10 Other stimulant abuse, uncomplicated
CPT/HCPCS: 96360; 36415; 59025; 59050; 80307; 84112; 85025; 85384; 85610; 85730; 99218; J7120; G0378

== ENCOUNTER 2019-04-13 06:53 | Inpatient (IN) | payer MEDICAID, SELFPAY ==
[2019-04-13] MEDS: Lactated Ringers 1,000 ML 50 ML IV (07:25)
[2019-04-13 07:36] VITALS: BMI 26.9
[2019-04-13 07:40] LABS: Absolute Lymphocyte Count 2.81 X10^3/uL (0.83-4.51); Absolute Neutrophil Count 5.7 X10^3/uL (2.0-7.7); Basophil# 0.03 X10^3/uL; Basophil% 0.3 % (0-1); Eosinophil# 0.29 X10^3/uL; Hematocrit 32.7 % (37-47); Hemoglobin 10.3 g/dL (12.0-15.0); Lymphocyte # 2.81 X10^3/ul (4.0); Lymphocyte % 29.4 % (19-41); Mean Corp Hgb Conc 31.5 g/dL (32-36); Mean Corpuscular Hgb 25.8 pg (27.0-32.0); Mean Corpuscular Volume 81.8 fL (81-99); Mean Platelet Vol. 12.1 fl (6.2-12.0); Monocyte# 0.64 X10^3/uL; Monocyte% 6.7 % (0-10); NRBC Flagged by Analyzer 0 % (0-5); Neutrophil # 5.74 X10^3/uL (2.7-7.7); Neutrophil % 60.1 % (47-70); Platelet Count 287 K/mm3 (150-450); RBC Distribution Width CV 15.4 % (11.6-14.6); RBC Distribution Width SD 45.2 fl (35.1-43.9); White Blood Count 9.6 K/mm3 (4.4-11.0)
[2019-04-13] MEDS: Oxytocin 30 units/NS 500 ml 30 UNITS/500 ML IV.SOLN IV (07:50)
--- NOTE | 2019-04-13 08:03 | HP.PCM_ITS ---
History Date of Admission: 12/18/18 Final MADAN: 04/19/19 Final MADAN Source: [place] <20 weeks Gestational age: 39 Weeks and 1 Days History of this : This is a 24 year-old, 24-year-old 2 para 1 at 39-1/7 weeks female presents for induction of labor due to history of maternal drug use during the and favorable cervix. She denies any gross vaginal bleeding or leaking of fluid. She is had good movement. Her has been complicated to date by history of depression, tobacco use during the . She had a history of amphetamine use earlier in the and also marijuana use. Medical History: Medical History (Last Updated 12/19/18 @ 06:27 by Aislinn Marte MD) History of drug abuse in remission (Chronic) Z87.898 marijuana and meth in past, random tox screens done. positive marijuana in Active drug dependence F19.20 Amphetamine abuse F15.10 Methamphetamine abuse F15.10 Allergies nitrofurantoin Allergy (Intermediate, Verified 04/08/19 13:13) Rash Home Medications: Home Medications Pnv No.95/Ferrous Fum/Folic AC [ Formula Tablet] 1 tab PO DAILY 12/18/18 Escitalopram Oxalate [Lexapro] 10 mg PO DAILY 04/03/19 proMETHazine tablet [Phenergan tablet] 25 mg PO Q8H PRN PRN 04/03/19 Smoking Status: Former smoker Substance Use Type: Amphetamines, Marijuana Number of Fetus(es): 1 Heart Tracing: Baseline, moderate variability. Category 1 upon admission. TOCO Analysis: No regular contractions History Past Pregnancies: Past Pregnancies Delivery Date Name GA/Weeks Outcome Route Weight Gender Labor Length Anesthesia Delivery Location Provider FOB Expected Infant Delivery Method: Spontaneous Vaginal Review of Systems Constitutional: Denies: Chills, Fever Eyes: Denies: Blurred vision Cardiovascular: Denies: Chest Pain Respiratory: Denies: Cough, Shortness of Breath Skin: Denies: Rash Neurological: Denies: Blurred vision Physical Exam General: Alert, Cooperative, No apparent distress Cardiovascular: Regular rate Lungs: Normal air movement Abdomen: Soft, Non-Distended, Gravid Extremities:: Other - Trace edema 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 Estimated weight is less than 4500 g clinically, pelvis clinically adequate to expect vaginal delivery. Will initiate Pitocin and artificial rupture membranes for induction of labor. May have epidural, or nitrous oxide for pain control.
[2019-04-13 08:16] LABS: Bedside Glucose 76 mg/dL (70-110)
[2019-04-13] MEDS: Ondansetron 4 MG/2 ML Vial IV (08:20)
[2019-04-13] MEDS: fentaNYL-bupivacaine (epidural) 100 ML BAG EPIDURAL (09:00)
[2019-04-13 09:45] LABS: Amphetamine Urine VISTA NEGATIVE (<1000 ng/mL); Barbiturate Urine VISTA NEGATIVE (< 200 ng/mL); Benzodiazepine Urine VISTA NEGATIVE (< 200 ng/mL); Cocaine Urine VISTA NEGATIVE (< 300 ng/mL); Ecstacy Urine VISTA NEGATIVE (< 500 ng/mL); Methadone Urine VISTA NEGATIVE (< 300 ng/mL); PCP Urine VISTA NEGATIVE (< 25 ng/mL); THC Urine VISTA POSITIVE (< 50 ng/mL); Vista UDS pH Range 6
[2019-04-13] MEDS: Oxytocin 30 units/NS 500 ml 30 UNITS/500 ML IV.SOLN 334 UNITS IV (11:34)
--- NOTE | 2019-04-13 11:46 | OP.PCM_ITS ---
Vaginal Delivery Maternal Presentation: Medically Indicated Induction - maternal drug use in , favorable cervis Method of Induction: Pitocin, Amniotomy Amniotic Membrane Rupture Type: Artificial Amniotic Fluid Description: Clear Final MADNA: 04/19/19 Final MADAN Source: [place] <20 weeks Gestational age: 39 Weeks and 1 Days Date of Procedure: 04/13/19 Pre-Operative Diagnosis: labor Post-Operative Diagnosis: same Surgery/ Procedure Performed: Spontaneous Vaginal Delivery Type of Anesthesia: Epidural Description of Procedure: A vigorous female infant was delivered AISHA over intact perineum. A loose nuchal cord ?1 was easily reduced. The remainder the infant was delivered with maternal pushing and gentle traction only in less than 15 seconds. The Pitocin infusion was initiated for active management of the third stage. The cord was c lamped and cut after 1 minute. The was attended to by the waiting nursing staff. The placenta was delivered spontaneously and intact. The cervix and vagina were intact. Sponge and needle counts were correct. A vaginal sweep was completed by me. Presentation: AISHA Placental Delivery Description: Spontaneous Placenta Disposition: [facility] Cord Vessel Description: 3 Vessels Nuchal Cord Compression: Without compression Cord Entanglement: Around neck x 1, loose Drain: [place] to straight drain Estimated Blood Loss: 200 Infant A gender: Female (1 minute): 8 (5 minute): 9 Episiotomy Description: None Laceration: None Medications given after delivery: IV Pitocin Complications: None
[2019-04-13] MEDS: Oxytocin 30 units/NS 500 ml 30 UNITS/500 ML IV.SOLN 167 UNITS IV (12:05)
[2019-04-13] MEDS: Ibuprofen 600 MG Tablet PO ×3 (12:35→23:25)
[2019-04-13 15:43] VITALS: BP 111/57; PULSE 100; RESP 16; TEMP 36.2; O2SAT 99
--- NOTE | 2019-04-13 16:00 | CASEMGMT ---
Social Work Labor and Delivery Consult received and noted for maternal history of substance use as of today, 04-13-2019. This chart writer familiar with mother of baby (MOB) from previous delivery in 2018. Records have been reviewed. Noted repeated maternal drug screens this showing positive for substances: 11-03-2018 (amphetamines and marijuana), 12-18-2018 (amphetamines, marijuana, and ecstasy), 02-14-2019 (amphetamines and marijuana), and at delivery on 04-13-2019 (marijuana). Plan: As MOB just delivered today, will plan to see MOB for assessment on 04.14.2019. -KIRIT Vega, AIRCRAFT COMMUNICATOR
[2019-04-13 19:45] VITALS: BP 120/55; PULSE 96; RESP 18; TEMP 36.7
[2019-04-13] MEDS: Acetaminophen 500 MG Tablet 1000 MG PO (22:00)
[2019-04-14] VITALS: BP 118/60; PULSE 80; RESP 18; TEMP 36.3
[2019-04-14] MEDS: oxyCODONE 5 MG Tablet PO (02:25)
[2019-04-14 02:36] LABS: Absolute Lymphocyte Count 3.22 X10^3/uL (0.83-4.51); Absolute Neutrophil Count 7.8 X10^3/uL (2.0-7.7); Basophil# 0.03 X10^3/uL; Basophil% 0.2 % (0-1); Eosinophil# 0.34 X10^3/uL; Eosinophils% 2.8 % (0-5); Hematocrit 30.2 % (37-47); Hemoglobin 9.5 g/dL (12.0-15.0); Lymphocyte # 3.22 X10^3/ul (4.0); Lymphocyte % 26.2 % (19-41); Mean Corp Hgb Conc 31.5 g/dL (32-36); Mean Corpuscular Volume 82.5 fL (81-99); Mean Platelet Vol. 11.5 fl (6.2-12.0); Monocyte# 0.87 X10^3/uL; Monocyte% 7.1 % (0-10); NRBC Flagged by Analyzer 0 % (0-5); Neutrophil # 7.79 X10^3/uL (2.7-7.7); Neutrophil % 63.4 % (47-70); Platelet Count 223 K/mm3 (150-450); RBC Distribution Width CV 15.2 % (11.6-14.6); RBC Distribution Width SD 45.6 fl (35.1-43.9); Red Blood Count 3.66 M/mm3 (4.2-5.4); White Blood Count 12.3 K/mm3 (4.4-11.0)
[2019-04-14 04:00] VITALS: BP 101/50; PULSE 76; RESP 18; TEMP 36.6
--- NOTE | 2019-04-14 06:57 | PN.OBGYN_ITS ---
Subjective: Playing some right lower quadrant pain. No fevers or chills. Average lochia. Tolerating regular diet. Urinating without difficulty. - Physical Exam General: Alert, Cooperative, No apparent distress Abdomen: Soft, Distended - Mildly, softly, - - This is firm and appropriately tender. No rebound or guarding. Vital Signs Temp Pulse Resp BP Pulse Ox 98.0 F 96 18 120/55 L 99 04/13/19 19:45 04/13/19 19:45 04/13/19 19:45 04/13/19 19:45 04/13/19 15:43 Oxygen Delivery Method Room Air Weight: 66.678 kg Body Mass Index (BMI) 26.9 Intake and Output for Last 24 Hours 04/12/19 04/13/19 04/14/19 23:59 23:59 23:59 Intake Total 2049 / 2049 Output Total 650 / 650 Balance 1400 / 1400 Laboratory Tests Past 24 Hrs 04/13/19 04/13/19 04/13/19 07:25 07:25 08:50 WBC 9.6 RBC 4.00 L Hgb 10.3 L Hct 32.7 L MCV 81.8 MCH 25.8 L MCHC 31.5 L RDW Std Deviation 45.2 H RDW Coeff of Earline 15.4 H Plt Count 287 MPV 12.1 H Immature Gran % (Auto) 0.500 Neut % (Auto) 60.1 Lymph % (Auto) 29.4 [place] % (Auto) 6.7 Eos % (Auto) 3.0 Baso % (Auto) 0.3 Absolute Neuts (auto) 5.7 Absolute Lymphs (auto) 2.81 Absolute Nucleated RBC 0.00 Nucleated RBC % 0 Urine Opiates Screen NEGATIVE Urine Methadone Screen NEGATIVE Ur Barbiturates Screen NEGATIVE Ur Phencyclidine Scrn NEGATIVE Ur Amphetamines Screen NEGATIVE U Methamphetamin-MDMA NEGATIVE U Benzodiazepines Scrn NEGATIVE Urine Cocaine Screen NEGATIVE U Cannabinoids Screen POSITIVE H Ur Drug Screen Comment Blood Type A POSITIVE Antibody Screen NEGATIVE 04/14/19 02:30 WBC 12.3 H RBC 3.66 L Hgb 9.5 L Hct 30.2 L MCV 82.5 MCH 26.0 L MCHC 31.5 L RDW Std Deviation 45.6 H RDW Coeff of Earline 15.2 H Plt Count 223 MPV 11.5 Immature Gran % (Auto) 0.300 Neut % (Auto) 63.4 Lymph % (Auto) 26.2 [place] % (Auto) 7.1 Eos % (Auto) 2.8 Baso % (Auto) 0.2 Absolute Neuts (auto) 7.8 H Absolute Lymphs (auto) 3.22 Absolute Nucleated RBC 0.00 Nucleated RBC % 0 Urine Opiates Screen Urine Methadone Screen Ur Barbiturates Screen Ur Phencyclidine Scrn Ur Amphetamines Screen U Methamphetamin-MDMA U Benzodiazepines Scrn Urine Cocaine Screen U Cannabinoids Screen Ur Drug Screen Comment Blood Type Antibody Screen POC Glucose 04/13/19 08:12 POC Glucose 76 Medical Necessity - Tobacco Use Smoking Status: Former smoker Assessment/Plan All Active Problems (Last Updated 12/19/18 @ 06:27 by Aislinn Marte MD) Amphetamine abuse (Acute) Methamphetamine abuse (Acute) Marijuana abuse, continuous (Acute) Hyperemesis gravidarum (Acute) Moderate dehydration (Acute) Ketosis (Acute) Rubella non-immune status, antepartum (Resolved) day #1 status post spontaneous vaginal delivery. Patient is doing well. is doing well. Patient would like to be discharged home today okay with admission liaison.
--- NOTE | 2019-04-14 07:32 | DCINST_ITS ---
Discharge Diet: No Restrictions Discharge Activity: Return to Normal Activity, May not drive while taking narcotic pain medications., May Shower May resume sexual activity in: 4-6 weeks Additional Activity Instructions:: Nothing in the vagina for 4-6 weeks. You may return to work/school in 6 weeks. Call your doctor if your incision/area has: Continuous Slow Oozing, Sudden Increased Bleeding, Increased Pain/ Swelling, Increased Redness, Foul Smelling Discharge Additional Instructions: If you experience any of the following, contact your healthcare provider. * Bleeding that soaks a pad every hour for 2 hours * Fever 100.4 or higher * Unrelieved incision or abdominal pain * Swelling, redness, discharge or bleeding from your incision or episiotomy site * Your incision begins to separate * Problems urinating (including inability to urinate or burning while urinating). * Visual changes * Severe headache * Flu-like symptoms * Pain or redness in one of both of your breasts * Pain, warmth, tenderness or swelling in your legs, especially the calf area * Frequent nausea and vomiting * Symptoms of depression or anxiety If you experience any of the following, call 911 or go to the nearest Emergency Room. * Chest pain * Problems breathing * Seizure activity * Partial or complete paralysis of a body part, slurred speech, weakness or drooping of the face, or a sudden inability to walk or hold your balance Allergies/Adverse Reactions: Allergies nitrofurantoin Allergy (Intermediate, Verified 04/13/19 08:17) Rash Medications to take at Discharge Pnv No.95/Ferrous Fum/Folic AC [ Formula Tablet] 1 tab PO DAILY 12/18/18 Escitalopram Oxalate [Lexapro] 10 mg PO DAILY 04/03/19 proMETHazine tablet [Phenergan tablet] 25 mg PO Q8H PRN PRN 04/03/19 Ibuprofen [Motrin] 800 mg PO TID PRN PRN #60 tab 04/14/19 The following prescriptions were given: Ibuprofen [Motrin] 800 mg PO TID PRN PRN #60 tab PRN Reason: Pain Transmission Status: Pending to [facility] Please Follow Up With: Jane Pike MD - [phone] When: Call to make an appointment with your provider's office in 1-2 in 6 weeks or as needed. Primary Care Physician: Vick Dong MD [Primary Care Provider] - Test Results: Test results from this visit will be discussed in further detail at your follow- up appointment, if applicable.
--- NOTE | 2019-04-14 08:52 | NURSING ---
[address] Pike to inform her of patients increase in pain with little relief from tylenol and motrin; this RN stated that patient is not nauseous, afebrile with no rebound tenderness; orders recieved for pain medication and labs.
[2019-04-14] MEDS: Ibuprofen 600 MG Tablet PO (09:40)
[2019-04-14 09:44] VITALS: BP 103/60; PULSE 93; RESP 16; TEMP 36.8
[2019-04-14] MEDS: Escitalopram Oxalate 10 MG Tablet PO (09:59)
[2019-04-14] MEDS: Acetaminophen 500 MG Tablet 1000 MG PO (11:17)
[2019-04-14 13:30] VITALS: BP 103/57; PULSE 103; RESP 16; TEMP 37.2; O2SAT 98
== END 2019-04-14 13:45 | disposition home or self-care (01) | DRG 560 ==
PROVIDERS: Admitting Provider Obstetrics & Gynecology; Family Provider Family Medicine; PCP Family Medicine; Referring Provider Obstetrics & Gynecology; Visit Provider Obstetrics & Gynecology
DX: O69.81X0 Labor and delivery complicated by cord around neck, without compression, not applicable or unspecified (principal); O99.344 Other mental disorders complicating childbirth; F32.9 Major depressive disorder, single episode, unspecified; F41.9 Anxiety disorder, unspecified; F15.21 Other stimulant dependence, in remission; F12.21 Cannabis dependence, in remission; Z79.899 Other long term (current) drug therapy; Z87.891 Personal history of nicotine dependence; Z3A.39 39 weeks gestation of pregnancy; Z37.0 Single live birth
CPT/HCPCS: 59025; 59050; 80307; 82962; 85025; 86850; 86900; 99218; J7120; G0378; J2405

== ENCOUNTER 2020-04-06 18:49 | Emergency (ER) | payer MEDICAID, SELFPAY ==
[2020-04-06 18:51] VITALS: BP 114/90; PULSE 63; RESP 18; TEMP 36.5; O2SAT 97; BMI 23.3
--- NOTE | 2020-04-06 19:33 | ED.DCSUM_ITS ---
History of Present Illness Chief Complaint: Flank Pain Informant: Patient Onset: Days - 3 Context: Gradual Onset Timing: Continuous, Waxes and wanes Quality: ache Location: left low back Current Severity: Severe Maximum Severity: Severe Worsened by: moving around, lying on left side Relieved by: nothing Associated Symptoms: Dysuria, urgency, urinary frequency Narrative: States she does not think she is however she is sexually active. Last cycle was last month but she is a regular. Fevers, nausea, vomiting. No abdominal pain, mostly just in her back. - Past Medical History (1) History of drug abuse in remission Status: Chronic Comment: marijuana and meth in past, random tox screens done. positive marijuana in Past Medical History - Allergies and Home Meds Allergies/Adverse Reactions: Allergies nitrofurantoin Allergy (Intermediate, Verified 04/06/20 18:51) Rash azithromycin [From Zithromax Z-Jose] Allergy (Verified 04/06/20 18:51) Rash Primary Care Physician: Vick Dong MD [Primary Care Provider] - Smoking Status: Current every day smoker Review of Systems General: Denies: Chills, Fever, Sweats Eyes: Denies: Visual changes - bilaterally, Diplopia ENT: Denies: Rhinorrhea, Sore throat Cardiovascular: Denies: Chest pain, Palpitations Respiratory: Denies: Dyspnea, Cough, Dyspnea on exertion Gastrointestinal: Denies: Abdominal pain, Nausea, Vomiting, Diarrhea, Melena, Hematochezia Genitourinary: Reports: Dysuria, Frequency. Denies: Hematuria Musculoskeletal: Reports: Back pain. Denies: Extremity Pain Skin: Denies: Rash, Wounds Neurological: Denies: Headache, Weakness, Numbness Physical Exam Vital Signs/Narrative: Vital Signs Temp Pulse Resp BP Pulse Ox 04/06/20 18:51 97.7 F L 63 18 114/90 H 97 Inital Vital Signs reviewed: Yes General: Well nourished, Well developed, No Acute Distress Head: Normocephalic, Atraumatic Eyes: Perrl, EOMI ENT: Moist mucous membranes, No rhinorrhea Neck: Supple, Nontender, No lymphadenopathy Cardiovascular: Regular rate, Regular rhythm, No murmurs. Negative for: Tachycardia Respiratory: No distress, CTA bilaterally, Chest nontender Abdomen: Soft, Nontender, Nondistended, Normal bowel sounds Back: Normal Inspection, - - Tender in left flank/low back with superficial palpation in the ribs in the subcostal areas, and when patient moves around has pain. Extremities: Nontender, No edema Skin: Normal color, No rash Neurological: Alert, Oriented x3, Cranial nerves II-XII grossly intact, Normal Strength, Normal Sensation, Normal Gait Psychological: Normal affect, Normal Mood Diagnostic/Tx/Re-eval Laboratory Tests 04/06/20 04/06/20 04/06/20 Range/Units 19:35 19:35 19:00 WBC (4.4-11.0) K/mm3 RBC (4.2-5.4) M/mm3 Hgb (12.0-15.0) g/dL Hct (37-47) % MCV (81-99) fL MCH (27.0-32.0) pg MCHC (32-36) g/dL RDW Std Deviation (35.1-43.9) fl RDW Coeff of Earline (11.6-14.6) % Plt Count (150-450) K/mm3 MPV (6.2-12.0) fl Immature Gran % (Auto) (0.0-0.9) % Neut % (Auto) (47-70) % Lymph % (Auto) (19-41) % [place] % (Auto) (0-10) % Eos % (Auto) (0-5) % Baso % (Auto) (0-1) % Absolute Neuts (auto) (2.0-7.7) X10^3/uL Absolute Lymphs (auto) (0.83-4.51) X10^3/uL Nucleated RBC % (0-5) % Sodium 142 (136-145) mmol/L Potassium 3.6 (3.5-5.1) mmol/L Chloride 107 (98-107) mmol/L Carbon Dioxide 30.0 (21.0-32.0) mmol/L Anion Gap 5 (5-15) BUN 9 (7-18) mg/dL Creatinine 0.65 (0.55-1.02) mg/dL Estim Creat Clear Calc 104.64 ml/min Est GFR (MDRD) Af Amer 143 (>60) mL/min Est GFR (MDRD) Non-Af 118 (>60) mL/min BUN/Creatinine Ratio 13.8 (10-20) RATIO Glucose 99 (74-106) mg/dL Calcium 8.5 (8.5-10.1) mg/dL Urine Color Yellow (Yellow) Urine Clarity Sl. Cloudy (Clear) Urine pH 7.0 (5.0 - 8.0) Ur Specific [place] 1.010 (1.002-1.030) Urine Protein 30 H (Negative) mg/dl Urine Glucose (UA) Normal (Normal) mg/dl Urine Ketones 5 H (Negative) mg/dl Urine Occult Blood 150 H (Negative) /ul Urine Nitrite Negative (Negative) Urine Bilirubin Negative (Negative) mg/dL Urine Urobilinogen Normal (Normal) mg/dl Ur Leukocyte Esterase 100 H (Negative) /ul Urine RBC 25-50 SEEN (0-5) /hpf Urine WBC 25-50 SEEN (0-5) /hpf Ur Squamous Epith Cells 5-10 SEEN (5-10) /hpf Amorphous Sediment 1+ PHOS Urine Bacteria 1+ (None Seen) /hpf Urine Mucus 0 SEEN (<or=2+) /hpf Urine Test Negative Negative 04/06/20 Range/Units 19:00 WBC 11.6 H (4.4-11.0) K/mm3 RBC 4.58 (4.2-5.4) M/mm3 Hgb 14.0 (12.0-15.0) g/dL Hct 43.8 (37-47) % MCV 95.6 (81-99) fL MCH 30.6 (27.0-32.0) pg MCHC 32.0 (32-36) g/dL RDW Std Deviation 50.3 H (35.1-43.9) fl RDW Coeff of Earline 14.5 (11.6-14.6) % Plt Count 266 (150-450) K/mm3 MPV 11.9 (6.2-12.0) fl Immature Gran % (Auto) 0.300 (0.0-0.9) % Neut % (Auto) 52.3 (47-70) % Lymph % (Auto) 33.8 (19-41) % [place] % (Auto) 5.8 (0-10) % Eos % (Auto) 7.3 H (0-5) % Baso % (Auto) 0.5 (0-1) % Absolute Neuts (auto) 6.1 (2.0-7.7) X10^3/uL Absolute Lymphs (auto) 3.91 (0.83-4.51) X10^3/uL Nucleated RBC % 0 (0-5) % Sodium (136-145) mmol/L Potassium (3.5-5.1) mmol/L Chloride (98-107) mmol/L Carbon Dioxide (21.0-32.0) mmol/L Anion Gap (5-15) BUN (7-18) mg/dL Creatinine (0.55-1.02) mg/dL Estim Creat Clear Calc ml/min Est GFR (MDRD) Af Amer (>60) mL/min Est GFR (MDRD) Non-Af (>60) mL/min BUN/Creatinine Ratio (10-20) RATIO Glucose (74-106) mg/dL Calcium (8.5-10.1) mg/dL Urine Color (Yellow) Urine Clarity (Clear) Urine pH (5.0 - 8.0) Ur Specific [place] (1.002-1.030) Urine Protein (Negative) mg/dl Urine Glucose (UA) (Normal) mg/dl Urine Ketones (Negative) mg/dl Urine Occult Blood (Negative) /ul Urine Nitrite (Negative) Urine Bilirubin (Negative) mg/dL Urine Urobilinogen (Normal) mg/dl Ur Leukocyte Esterase (Negative) /ul Urine RBC (0-5) /hpf Urine WBC (0-5) /hpf Ur Squamous Epith Cells (5-10) /hpf Amorphous Sediment Urine Bacteria (None Seen) /hpf Urine Mucus (<or=2+) /hpf Urine Test Negative - Medical Decision Making Patient is colicky pain even when she is not moving, and her pain sounds more musculoskeletal than it does renal, although she does have evidence of urinary tract infection, that was sent for culture and given her symptoms and the fact that the urinary symptoms started a day before the back symptoms, which started gradually and inconsistent w/ obstructive uropathy, I will cover her for pyelonephritis. Given IV Rocephin. is negative and she can be treated as an outpatient, she was given Toradol for pain I do not think she needs narcotics given her history of drug abuse. ED Disposition - Plan for ED Patient: Disposition: Home or Assisted Living Diagnosis: Pyelonephritis Instructions: ED Pyelonephritis Female Adult Prescriptions: Smz/Tmp Ds [Bactrim Ds] 1 tab PO BID #28 tab Prescription Printed Referrals: Vick Dong MD [Primary Care Provider] - 3-5 Days if not improving
[2020-04-06] MEDS: 0.9% Normal Saline 1,000 ML 999 ML IV (19:38)
[2020-04-06] MEDS: Ketorolac 30 MG/ML Syringe IV (19:38)
[2020-04-06 20:01] LABS: Mucous, Urine 0 SEEN /hpf (<or=2+)
[2020-04-06 20:05] LABS: Color, Urine Yellow (Yellow); Glucose, Dipstick Normal (Normal); Ketone-Dipstick 5 mg/dl (Negative); Leukocyte Esterase-Dipstick 100 /ul (Negative); Nitrite-Dipstick Negative (Negative); Occult Blood-Urine 150 /ul (Negative); Protein-Dipstick 30 mg/dl (Negative); Urine Bilirubin Dipstick Negative (Negative); Urine Clarity Sl. Cloudy (Clear); Urine Urobilinogen Normal (Normal)
[2020-04-06 20:06] LABS: Absolute Lymphocyte Count 3.91 X10^3/uL (0.83-4.51); Absolute Neutrophil Count 6.1 X10^3/uL (2.0-7.7); Basophil# 0.06 X10^3/uL; Basophil% 0.5 % (0-1); Eosinophil# 0.84 X10^3/uL; Eosinophils% 7.3 % (0-5); Hematocrit 43.8 % (37-47); Lymphocyte # 3.91 X10^3/ul (4.0); Lymphocyte % 33.8 % (19-41); Mean Corpuscular Hgb 30.6 pg (27.0-32.0); Mean Corpuscular Volume 95.6 fL (81-99); Mean Platelet Vol. 11.9 fl (6.2-12.0); Monocyte# 0.67 X10^3/uL; Monocyte% 5.8 % (0-10); NRBC Flagged by Analyzer 0 % (0-5); Neutrophil # 6.05 X10^3/uL (2.7-7.7); Neutrophil % 52.3 % (47-70); Platelet Count 266 K/mm3 (150-450); RBC Distribution Width CV 14.5 % (11.6-14.6); RBC Distribution Width SD 50.3 fl (35.1-43.9); Red Blood Count 4.58 M/mm3 (4.2-5.4); White Blood Count 11.6 K/mm3 (4.4-11.0)
[2020-04-06 20:11] LABS: Internal QC Validated? YES +Cl - CLEAR BKGD; Pregnancy, Urine Negative Negative
[2020-04-06 20:14] LABS: Anion Gap 5 (5-15); BUN 9 mg/dL (7-18); BUN/Creat Ratio 13.8 RATIO (10-20); Calcium,Total 8.5 mg/dL (8.5-10.1); Chloride 107 mmol/L (98-107); Creatinine, Serum 0.65 mg/dL (0.55-1.02); EST Glomerular Filtration Rate 118 mL/min (>60); Est Glom Filt Rate - Afr Amer 143 mL/min (>60); Estimated Creatinine Clearance 104.64 ml/min; Glucose 99 mg/dL (74-106); Potassium 3.6 mmol/L (3.5-5.1); Sodium Level 142 mmol/L (136-145)
[2020-04-06 20:21] LABS: Bacteria 1+ /hpf (None Seen); Red Blood Cells-Urine 25-50 SEEN /hpf (0-5); Squamous Epithelial Cells - UA 5-10 SEEN /hpf (5-10); White Blood Cells 25-50 SEEN /hpf (0-5)
[2020-04-06 20:22] LABS: Amorphous Sediment 1+ PHOS
[2020-04-06] MEDS: Ceftriaxone 1 GM/50 ML BAG IV (20:52)
[2020-04-06 21:26] VITALS: BP 114/78; PULSE 90; RESP 16; O2SAT 99
[2020-04-06] MEDS: Ketorolac 15 MG/ML Vial 10 MG IV (21:30)
== END 2020-04-06 21:35 | disposition home or self-care (01) ==
PROVIDERS: Emergency Provider Emergency Medicine; PCP Family Medicine
DX: N12 Tubulo-interstitial nephritis, not specified as acute or chronic (principal); F17.200 Nicotine dependence, unspecified, uncomplicated
CPT/HCPCS: 80048; 81001; 81025; 85025; 87077; 87086; 87088; 96365; 96375; 96376; 99284; J7030; J7050; A4216

== ENCOUNTER 2020-06-19 13:34 | Emergency (ER) | payer MEDICAID, SELFPAY ==
[2020-06-19 13:35] VITALS: BP 152/102; PULSE 95; RESP 18; TEMP 37.1; O2SAT 99; BMI 23.3
--- NOTE | 2020-06-19 13:59 | ED.RN ---
Pt got in verbal altercation in waiting room with friend. Pt stormed outside yelling.
== END 2020-06-19 13:58 | disposition left against medical advice (07) ==
PROVIDERS: Emergency Provider Emergency Medicine
DX: Z53.21 Procedure and treatment not carried out due to patient leaving prior to being seen by health care provider (principal)

== ENCOUNTER 2020-07-22 15:55 | Emergency (ER) | payer MEDICAID, SELFPAY ==
[2020-07-22 15:56] VITALS: BP 155/53; PULSE 115; RESP 16; TEMP 36.1; O2SAT 99; BMI 23.6
--- NOTE | 2020-07-22 16:15 | CT_ITS ---
STUDY: CT ABDOMEN AND PELVIS WITHOUT CONTRAST REASON FOR EXAM: Female, 25 years old. RIGHT FLANK PAIN RADIATION DOSAGE (If Supplied By Facility): CTDIvol = ( 6.14 ) mGy, DLP = ( 294.57 ) mGycm TECHNIQUE: Transaxial images were obtained from the dome of the diaphragm to the symphysis pubis without oral contrast, and without intravenous contrast. Sagittal and coronal images were reconstructed. Individualized dose optimization techniques were used for this CT. COMPARISON: None. FINDINGS: The visualized lung bases are unremarkable. The visualized portions of the heart are within normal limits. Normal liver. Normal gallbladder and extrahepatic biliary system. Normal spleen. Normal pancreas. Normal bilateral adrenal glands. No hydronephrosis. There is a 3 mm calculus of the left kidney on image 48 of series 2. Normal visualized stomach. Normal small intestine. Normal colon. The appendix is visualized and appears normal. Normal abdominal aorta. Normal inferior vena cava. Normal retroperitoneum. Normal urinary bladder. Normal visualized uterus. Normal abdominal wall. Normal osseous structures. CT/Abdomen/Pelvis without Cont IMPRESSION: No hydronephrosis or ureter calculi. Nonobstructing 3 mm left renal calculus. Electronically Signed: Travis Veloz MD ([place]) at 17:58 EDT , Service support ,
--- NOTE | 2020-07-22 16:27 | ED.VIS.GEN ---
History of Present Illness Chief Complaint: Flank Pain Narrative: Patient presents with flank pain that started about an hour ago. It started relatively quickly. She has no trauma. She has no fever or chills she denies any dysuria or hematuria, her LMP was about a month ago and she is due in the next week. She has no vaginal discharge. She has mild right-sided lower abdominal pain. No nausea vomiting or diarrhea. Past Medical History - Allergies and Home Meds Allergies/Adverse Reactions: Allergies nitrofurantoin Allergy (Intermediate, Verified 06/19/20 13:37) Rash azithromycin [From Zithromax Z-Jose] Allergy (Verified 06/19/20 13:37) Rash Primary Care Physician: Care Physician,No Primary [Primary Care Provider] - Past Medical History: None Smoking Status: Current every day smoker Review of Systems All systems negative except as indicated General: Denies: Fever Cardiovascular: Denies: Chest pain Respiratory: Denies: Dyspnea Gastrointestinal: Reports: Abdominal pain. Denies: Nausea, Vomiting, Diarrhea Genitourinary: Denies: Dysuria, Hematuria Musculoskeletal: Reports: Back pain Skin: Denies: Rash Neurological: Denies: Headache, Weakness Psych: Denies: Depression Endocrine: Denies: Polyuria Hematologic: Denies: Easy bruising Allergy: Denies: Uticaria Physical Exam Vital Signs/Narrative: Vital Signs Temp Pulse Resp BP Pulse Ox 07/22/20 15:56 97 F L 115 H 16 155/53 H 99 General: - - Patient appears in some distress ENT: Moist mucous membranes Neck: Supple Cardiovascular: Regular rate, Regular rhythm Respiratory: No distress, CTA bilaterally Abdomen: Soft, - - Mild right-sided abdominal tenderness but not specifically at McBurney's. Back: CVA tenderness, - - Quite a bit of right-sided CVA tenderness although ill reproduced. She has no midline back pain. Skin: Normal color Neurological: Alert, Oriented x3 Psychological: Normal affect Diagnostic/Tx/Re-eval - Medical Decision Making ED work-up. She appears well she significantly improved. I reevaluated most of her pain is in the CVA region but she does have some paraspinal muscle tenderness I cannot now reproduce her pain much better than before. Again she has no thoracic pain or any pain around her ribs I am not suspicious of an intrathoracic pathology like PE. Does have evidence of a possible slight UTI and I will treat for this. ED Disposition - Plan for ED Patient: Disposition: Home or Assisted Living Diagnosis: Back pain Instructions: ED Back Care Tips Prescriptions: Smz/Tmp Ds [Bactrim Ds] 1 tab PO BID #6 tab Transmission Status: Pending to [facility] Tizanidine HCl 4 mg PO TID #10 tab Transmission Status: Pending to [facility] Referrals: Care Physician,No Primary [Primary Care Provider] - 3-5 Days
[2020-07-22 16:33] LABS: Red Blood Cells-Urine 0 SEEN /hpf (0-5)
[2020-07-22 16:36] LABS: Absolute Lymphocyte Count 3.45 X10^3/uL (0.83-4.51); Absolute Neutrophil Count 4.4 X10^3/uL (2.0-7.7); Basophil# 0.06 X10^3/uL; Basophil% 0.7 % (0-1); Eosinophils% 5.5 % (0-5); Hematocrit 38.4 % (37-47); Hemoglobin 12.4 g/dL (12.0-15.0); Lymphocyte # 3.45 X10^3/ul (4.0); Lymphocyte % 37.7 % (19-41); Mean Corp Hgb Conc 32.3 g/dL (32-36); Mean Platelet Vol. 11.3 fl (6.2-12.0); Monocyte# 0.73 X10^3/uL; NRBC Flagged by Analyzer 0 % (0-5); Neutrophil # 4.39 X10^3/uL (2.7-7.7); Platelet Count 262 K/mm3 (150-450); RBC Distribution Width SD 47.7 fl (35.1-43.9); Red Blood Count 4.13 M/mm3 (4.2-5.4); White Blood Count 9.1 K/mm3 (4.4-11.0)
[2020-07-22] MEDS: 0.9% Normal Saline 1,000 ML 1000 ML IV (16:42)
[2020-07-22] MEDS: Morphine 4 MG/ML Syringe IV (16:42)
[2020-07-22] MEDS: Ondansetron 4 MG/2 ML Vial IV (16:42)
[2020-07-22] MEDS: Ketorolac 15 MG/ML Vial IV (16:42)
[2020-07-22 16:53] LABS: Color, Urine Yellow (Yellow); Glucose, Dipstick Normal (Normal); Ketone-Dipstick 5 mg/dl (Negative); Leukocyte Esterase-Dipstick 25 /ul (Negative); Nitrite-Dipstick Negative (Negative); Occult Blood-Urine Negative /ul (Negative); Protein-Dipstick 15 mg/dl (Negative); Specific Gravity, Urine 1.025 (1.002-1.030); Urine Bilirubin Dipstick Negative (Negative); Urine Clarity Clear (Clear); Urine Urobilinogen 1 mg/dl (Normal)
[2020-07-22 16:55] LABS: AST(SGOT) 13 U/L (15-37); Alanine Aminotransfer ALT/SGPT 16 U/L (13-56); Albumin, Serum 3.3 g/dL (3.2-5.0); Alkaline Phosphatase 48 U/L (45-117); Anion Gap 5 (5-15); BUN 12 mg/dL (7-18); BUN/Creat Ratio 16.4 RATIO (10-20); Calcium,Total 8.4 mg/dL (8.5-10.1); Chloride 111 mmol/L (98-107); Creatinine, Serum 0.73 mg/dL (0.55-1.02); EST Glomerular Filtration Rate 103 mL/min (>60); Est Glom Filt Rate - Afr Amer 124 mL/min (>60); Estimated Creatinine Clearance 93.17 ml/min; Globulin 3.2 g/dL (2.2-4.2); Glucose 81 mg/dL (74-106); Lipase 61 U/L (73-393); Potassium 3.6 mmol/L (3.5-5.1); Protein, Total 6.5 g/dL (6.4-8.2); Sodium Level 142 mmol/L (136-145)
[2020-07-22 17:30] LABS: Internal QC Validated? YES +Cl - CLEAR BKGD; Pregnancy, Urine Negative Negative
[2020-07-22 17:33] LABS: Bacteria 1+ /hpf (None Seen); Mucous, Urine 1+ /hpf (<or=2+); Squamous Epithelial Cells - UA 5-10 SEEN /hpf (5-10); White Blood Cells 0-5 SEEN /hpf (0-5)
[2020-07-22] MEDS: HYDROmorphone 1 MG/ML Syringe IV (17:57)
[2020-07-22 18:47] VITALS: BP 104/71; PULSE 76; RESP 16; O2SAT 100
== END 2020-07-22 18:47 | disposition home or self-care (01) ==
PROVIDERS: Emergency Provider Emergency Medicine
DX: M54.9 Dorsalgia, unspecified (principal); F17.200 Nicotine dependence, unspecified, uncomplicated
CPT/HCPCS: 74176; 80053; 81001; 81025; 83690; 85025; 96374; 96375; 99282; J7030; A4216; J2405

== ENCOUNTER 2021-04-17 01:40 | Emergency (ER) | payer MEDICAID, SELFPAY ==
[2021-04-17 01:41] VITALS: PULSE 107; RESP 18; TEMP 36.9; O2SAT 100; BMI 23.6
[2021-04-17 02:27] LABS: Bacteria 0 SEEN /hpf (None Seen); Red Blood Cells-Urine 0 SEEN /hpf (0-5); White Blood Cells 0 SEEN /hpf (0-5)
[2021-04-17 02:28] LABS: Color, Urine Yellow (Yellow); Glucose, Dipstick Normal (Normal); Ketone-Dipstick Negative (Negative); Leukocyte Esterase-Dipstick Negative /ul (Negative); Nitrite-Dipstick Negative (Negative); Occult Blood-Urine Negative /ul (Negative); Protein-Dipstick 30 mg/dl (Negative); Urine Bilirubin Dipstick Negative (Negative); Urine Clarity Sl. Cloudy (Clear); Urine Urobilinogen 1 mg/dl (Normal)
[2021-04-17 02:31] LABS: Internal QC Validated? YES +Cl - CLEAR BKGD; Pregnancy, Urine Negative Negative
[2021-04-17 02:33] LABS: Mucous, Urine 1+ /hpf (<or=2+); Squamous Epithelial Cells - UA 10-25 SEEN /hpf (5-10)
--- NOTE | 2021-04-17 02:41 | EDS_ITS ---
HPI HPI - Female History of Present Illness Chief Complaint: Complaint Informant: patient Narrative Narrative: Reports 1 week history back suprapubic pain and vaginal discharge. Sexually active single partner. She states an STD when she was 16 years old. States she is status post a D&C 3 months ago for miscarriage. Denies fevers. Denies vomiting or diarrhea. Denies any dysuria. Concern for UTI. Prior similar symptoms: Yes PFSH PFSH Medical History Active drug dependence Amphetamine abuse History of drug abuse in remission Methamphetamine abuse Home Medications doxycycline monohydrate 100 mg PO BID #28 cap 04/17/21 [Rx Last Taken Unknown] ibuprofen 600 mg PO Q6H PRN PRN #20 tab 04/17/21 [Rx Last Taken Unknown] Allergy/AdvReac Type Severity Reaction Status Date / Time nitrofurantoin Allergy Intermediate Rash Verified 06/19/20 13:37 azithromycin Allergy Rash Verified 06/19/20 13:37 [From Zithromax Z-Jose] Family History Mother Hypertension Social History Smoking Status: Current every day smoker tobacco type: cigarettes alcohol intake: never substance use type: marijuana caffeine: Yes what type of physical activity do you participate in: none frequency: 5-6 times per week duration: 15-30 minutes/day seatbelt use: always do you feel safe at home: Yes ROS ROS ED Constitutional Constitutional ED: Denies chills, fever(s) or sweats Eyes Eyes: Denies change in vision ENT ENT ED: Denies dysphagia or sore throat Cardiovascular Cardiovascular: Denies chest pain, leg edema, palpitations or racing heartbeat Respiratory/Chest Respiratory/Chest: Denies cough, dyspnea or dyspnea on exertion Gastrointestinal Gastrointestinal: Denies abdominal pain, diarrhea, nausea or vomiting Genitourinary Genitourinary ED: Reports other Details: Abnormal vaginal discharge ; Denies dysuria, hematuria or urinary frequency Musculoskeletal Musculoskeletal: Reports other Details: Back pain ; Denies back pain, extremity pain or neck pain Integumentary Denies rash or wounds Neurologic Neurologic: Denies headache(s), paresthesias or weakness EXAM Physical Exam Const Vital Signs: 04/17/21 01:41 Temperature 98.5 F Temperature Source Oral Pulse Rate 107 H Respiratory Rate 18 Pulse Ox 100 Oxygen Delivery Method Room Air Positive well nourished and well developed General Appearance ED: well developed and NAD HEENT Reports moist mucous membranes normocephalic and atraumatic Eyes PERRL, EOMs intact bilaterally and conjunctivae normal General Eye ED: Yes normal appearance of both eyes Neck no lymphadenopathy and supple General: Negative for tenderness Chest Wall Chest: Negative for tenderness Resp normal respiratory effort and normal air movement Effort and Inspection: symmetric chest movement; Negative for respiratory distress Cardio regular rate, regular rhythm and no murmurs Peripheral Pulses: pulses 2+ throughout GI normal to inspection, nondistended, normoactive bowel sounds and non-tender Palpation: Negative for guarding or rebound tenderness present no CVA tenderness Narrative: RN present External Female Exam: normal appearance of the urethra Speculum Exam - Vagina: other Milky discharge, normal cervix Bimanual Exam - Vag & Uterus: normal bimanual exam and normal cervical palpation Bimanual Exam - Adnexa, Other: normal adnexae Back/Spine no CVA tenderness and no thoracic nor lumbar tenderness Extremity normal to inspection General Extremety ED: Negative for edema or tenderness General Extremity: Negative for edema Neuro oriented x3 and no sensory deficits noted Sensorium / Orientation: awake and alert Skin no rashes or lesions noted and no wounds MDM MDM MDM Narrative Medical decision making narrative: Patient's urine hCG was negative. With her vaginal discharge with pain, discussed pelvic exam for which she agreed. Noted milky discharge. There is no significant cervical motion or adnexal tenderness. Wet prep returned negative. With her discharge, her reported back pain and pelvic pain, discussed possibility of PID. Discussed treatment options with the patient she wishes to pursue the treatment. She was treated with Rocephin and doxycycline. Doxycycline for 14 days. Toradol for anti-inflammatory. Discussed follow-up as an outpatient and return precautions. All questions were answered. Lab Data Attestation: I reviewed the patient's lab results. Labs: Laboratory Results - last 24 hr 04/17/21 01:50 Urine Color Yellow Urine Clarity Sl. Cloudy Urine pH 6.0 Ur Specific [place] 1.030 Urine Protein 30 H Urine Glucose (UA) Normal Urine Ketones Negative Urine Occult Blood Negative Urine Nitrite Negative Urine Bilirubin Negative Urine Urobilinogen 1 H Ur Leukocyte Esterase Negative Urine RBC 0 SEEN Urine WBC 0 SEEN Ur Squamous Epith Cells 10-25 SEEN Urine Bacteria 0 SEEN Urine Mucus 1+ Urine Test Negative Discharge Plan Triage Chief Complaint: Complaint ED Provider: Amrik Bowden Dx/Rx/DC Orders Clinical Impression: Vaginitis, Pelvic pain Instructions: Vaginal Infection, ED Pelvic Pain, Unknown Cause, ED Pelvic Inflammatory Disease Prescriptions: New doxycycline monohydrate 100 mg capsule 100 mg PO BID Qty: 28 RF: 0 ibuprofen 600 mg tablet 600 mg PO Q6H PRN PRN (Reason: pain) Qty: 20 RF: 0 Primary Care Provider: Care Physician,No Primary Referrals: Vick Dong MD [NON-STAFF] - 1 Week if not improving Care Physician,No Primary [Primary Care Provider] - Disposition Disposition: Home, Self Care
[2021-04-17] MEDS: Ketorolac 30 MG/ML Syringe IM (04:16)
[2021-04-17] MEDS: Doxycycline 100 MG CAPSULE PO (04:16)
[2021-04-17] MEDS: Ceftriaxone 500 MG Vial IM (04:16)
[2021-04-17 04:57] LABS: Probe Check PASS; Sample Adequacy Control PASS; Specimen Processing Control PASS; Trichomonas Vag DNA by PCR Negative (Negative)
[2021-04-17 05:17] LABS: Chlamydia Trachomatis by PCR Negative (Negative); Neisserai gonorrhoeae by PCR Negative (Negative); Probe Check PASS; Sample Adequacy Control PASS; Specimen Processing Control PASS
== END 2021-04-17 04:25 | disposition home or self-care (01) ==
PROVIDERS: Emergency Provider Emergency Medicine
DX: N76.0 Acute vaginitis (principal); R10.2 Pelvic and perineal pain; F17.210 Nicotine dependence, cigarettes, uncomplicated
CPT/HCPCS: 81001; 81025; 87210; 87491; 87591; 87661; 96372; 99284

== ENCOUNTER → 2021-07-11 10:38 | Outpatient (CLI) | payer MEDICAID, SELFPAY ==
[2021-07-11 11:11] LABS: hCG Titer Quant., Serum < 1 mIU/mL (1-3)
== END ==
PROVIDERS: Referring Provider Obstetrics & Gynecology; Visit Provider Obstetrics & Gynecology
DX: N91.2 Amenorrhea, unspecified (principal)
CPT/HCPCS: 36415; 84702

== ENCOUNTER 2022-08-07 13:42 | Emergency (ER) | payer MEDICAID, SELFPAY ==
[2022-08-07 13:43] VITALS: BP 95/77; PULSE 114; RESP 14; TEMP 36.3; O2SAT 100; BMI 25.9
[2022-08-07] MEDS: Metoclopramide 10 MG/2 ML Vial 5 MG IV (14:32)
--- NOTE | 2022-08-07 14:32 | EX.ED.DYSGE1 ---
HPI <ANTWAN Horn - Last Filed: 08/07/22 19:58> History of Present Illness Chief Complaint: Nausea/Vomiting Narrative Narrative: Patient presents with 4 days of nausea and vomiting. She states she began to have lower abdominal pain that started 2 days ago. She believes she is 6 to 8 weeks after taking 3 at home tests last week. However, she has not seen her OB yet. Patient states she was drinking alcohol regularly but stopped last week after finding out she was . Patient denies dysuria, urinary frequency, fever, and vaginal bleeding. Patient admits to having a white nonodorous vaginal discharge over the past week. Patient states she had chlamydia that was treated at the age of 16 denies any STDs since. PFSH <ANTWAN Horn - Last Filed: 08/07/22 19:58> PFSH Medical History Active drug dependence Amphetamine abuse History of drug abuse in remission Methamphetamine abuse Home Medications doxycycline monohydrate 100 mg capsule 100 mg PO BID #28 caps 04/17/21 [Rx Last Taken Unknown] ibuprofen 600 mg tablet 600 mg PO Q6H PRN PRN pain #20 tabs 04/17/21 [Rx Last Taken Unknown] Allergy/AdvReac Type Severity Reaction Status Date / Time nitrofurantoin Allergy Intermediate Rash Verified 08/07/22 13:45 azithromycin Allergy Rash Verified 08/07/22 13:45 [From Zithromax Z-Jose] Family History Mother Hypertension Social History Smoking Status: Former smoker alcohol intake: never substance use type: marijuana caffeine: Yes what type of physical activity do you participate in: none frequency: 5-6 times per week duration: 15-30 minutes/day seatbelt use: always do you feel safe at home: Yes ROS <ANTWAN Horn - Last Filed: 08/07/22 19:58> ROS ED Constitutional Constitutional ED: Denies chills, fever(s) or sweats Eyes Eyes: Denies change in vision ENT ENT ED: Denies rhinorrhea or sore throat Cardiovascular Cardiovascular: Denies chest pain Respiratory/Chest Respiratory/Chest: Denies cough, dyspnea, shortness of breath at rest or shortness of breath with exertion Gastrointestinal Gastrointestinal: Reports abdominal pain, nausea and vomiting; Denies constipation or diarrhea Integumentary Denies abscess, Abrasions or rash Neurologic Neurologic: Denies headache(s) or weakness EXAM <ANTWAN Horn - Last Filed: 08/07/22 19:58> Physical Exam Const Vital Signs: 08/07/22 13:43 08/07/22 15:50 Temperature 97.4 F L Temperature Source Temporal Pulse Rate 114 H Respiratory Rate 14 16 Blood Pressure 95/77 Blood Pressure Mean 83 Pulse Ox 100 Oxygen Delivery Method Room Air Positive well nourished HEENT Reports dry mucous membranes Mouth ED: Yes dry mucous membranes Mouth: dry mucous membranes Eyes PERRL and EOMs intact bilaterally Neck no lymphadenopathy and supple Resp normal respiratory effort and clear to auscultation bilaterally Auscultation: Negative for rales, rhonchi, wheezes or diminished lung sounds Cardio regular rate and no murmurs Rate: tachycardic GI non-distended and no masses; Negative for hepatosplenomegaly GI Narrative: Patient is tender to palpation along her lower abdomen. Narrative: Patient is tender to palpation along her uterus. Back/Spine no CVA tenderness Extremity normal to inspection Neuro oriented x3 and no sensory deficits noted Sensorium / Orientation: alert Motor Exam: strength 5/5 throughout Psych mental status grossly normal Skin no rashes or lesions noted and no wounds <Dr. Amrik Bowden DO - Last Filed: 08/07/22 20:29> Physical Exam Const Vital Signs: 08/07/22 13:43 08/07/22 15:50 Temperature 97.4 F L Temperature Source Temporal Pulse Rate 114 H Respiratory Rate 14 16 Blood Pressure 95/77 Blood Pressure Mean 83 Pulse Ox 100 Oxygen Delivery Method Room Air MDM <ANTWAN Horn - Last Filed: 08/07/22 19:58> [facility] MDM Narrative Medical decision making narrative: Patient received IV fluids as well as Reglan. Patient has eloped before being informed on what could possibly be going on with her or reasons she should receive the US and pelvic examination. There are concerns for ectopic , however, she told the nurse she did not want to do the transvaginal ultrasound or the pelvic examination and wanted to go home. Lab Data Attestation: I reviewed the patient's lab results. Lab results narrative: CBC unremarkable, BMP unremarkable, urine culture has been sent for the UA. hCG positive. Labs: Laboratory Results - last 24 hr 08/07/22 08/07/22 08/07/22 14:06 14:20 14:20 WBC 9.0 RBC 4.71 Hgb 14.6 Hct 44.0 MCV 93.4 MCH 31.0 MCHC 33.2 RDW Std Deviation 43.8 RDW Coeff of Earline 12.7 Plt Count 297 MPV 10.9 Immature Gran % (Auto) 0.300 Neut % (Auto) 50.8 Lymph % (Auto) 34.8 Osborne % (Auto) 7.9 Eos % (Auto) 5.5 H Baso % (Auto) 0.7 Absolute Neuts (auto) 4.6 Absolute Lymphs (auto) 3.15 Nucleated RBC % 0 Sodium 139 Potassium 3.8 Chloride 105 Carbon Dioxide 27.0 Anion Gap 7 BUN 7 Creatinine 0.66 Estim Creat Clear Calc 101.26 Est GFR (MDRD) Af Amer 137 Est GFR (MDRD) Non-Af 113 BUN/Creatinine Ratio 10.5 Glucose 77 Calcium 8.9 HCG, Quant Urine Color Yellow Urine Clarity Sl. Cloudy Urine pH 7.0 Ur Specific [place] 1.015 Urine Protein 30 H Urine Glucose (UA) 100 H Urine Ketones 5 H Urine Occult Blood 10 H Urine Nitrite Negative Urine Bilirubin Negative Urine Urobilinogen Normal Ur Leukocyte Esterase 25 H Urine RBC 0-5 SEEN Urine WBC 5-10 SEEN Ur Squamous Epith Cells 10-25 SEEN Urine Bacteria 2+ Urine Mucus 0 SEEN 08/07/22 14:20 WBC RBC Hgb Hct MCV MCH MCHC RDW Std Deviation RDW Coeff of Earline Plt Count MPV Immature Gran % (Auto) Neut % (Auto) Lymph % (Auto) Osborne % (Auto) Eos % (Auto) Baso % (Auto) Absolute Neuts (auto) Absolute Lymphs (auto) Nucleated RBC % Sodium Potassium Chloride Carbon Dioxide Anion Gap BUN Creatinine Estim Creat Clear Calc Est GFR (MDRD) Af Amer Est GFR (MDRD) Non-Af BUN/Creatinine Ratio Glucose Calcium HCG, Quant 86922 H Urine Color Urine Clarity Urine pH Ur Specific [place] Urine Protein Urine Glucose (UA) Urine Ketones Urine Occult Blood Urine Nitrite Urine Bilirubin Urine Urobilinogen Ur Leukocyte Esterase Urine RBC Urine WBC Ur Squamous Epith Cells Urine Bacteria Urine Mucus <Dr. Amrik Bowden, DO - Last Filed: 08/07/22 20:29> [facility] MDM Narrative Medical decision making narrative: Patient received IV fluids as well as Reglan. Patient has eloped before being informed on what could possibly be going on with her or reasons she should receive the US and pelvic examination. There are concerns for ectopic , however, she told the nurse she did not want to do the transvaginal ultrasound or the pelvic examination and wanted to go home. Attending note: Patient discussed with occupational therapy assist with developed plan of care. However prior to my evaluation, patient eloped reported nursing she has an OB appointment next week. She reports she demanded IV to be removed prior to being discharged. Lab Data Labs: Laboratory Results - last 24 hr 08/07/22 08/07/22 08/07/22 14:06 14:20 14:20 WBC 9.0 RBC 4.71 Hgb 14.6 Hct 44.0 MCV 93.4 MCH 31.0 MCHC 33.2 RDW Std Deviation 43.8 RDW Coeff of Earline 12.7 Plt Count 297 MPV 10.9 Immature Gran % (Auto) 0.300 Neut % (Auto) 50.8 Lymph % (Auto) 34.8 Osborne % (Auto) 7.9 Eos % (Auto) 5.5 H Baso % (Auto) 0.7 Absolute Neuts (auto) 4.6 Absolute Lymphs (auto) 3.15 Nucleated RBC % 0 Sodium 139 Potassium 3.8 Chloride 105 Carbon Dioxide 27.0 Anion Gap 7 BUN 7 Creatinine 0.66 Estim Creat Clear Calc 101.26 Est GFR (MDRD) Af Amer 137 Est GFR (MDRD) Non-Af 113 BUN/Creatinine Ratio 10.5 Glucose 77 Calcium 8.9 HCG, Quant Urine Color Yellow Urine Clarity Sl. Cloudy Urine pH 7.0 Ur Specific [place] 1.015 Urine Protein 30 H Urine Glucose (UA) 100 H Urine Ketones 5 H Urine Occult Blood 10 H Urine Nitrite Negative Urine Bilirubin Negative Urine Urobilinogen Normal Ur Leukocyte Esterase 25 H Urine RBC 0-5 SEEN Urine WBC 5-10 SEEN Ur Squamous Epith Cells 10-25 SEEN Urine Bacteria 2+ Urine Mucus 0 SEEN 08/07/22 14:20 WBC RBC Hgb Hct MCV MCH MCHC RDW Std Deviation RDW Coeff of Earline Plt Count MPV Immature Gran % (Auto) Neut % (Auto) Lymph % (Auto) Osborne % (Auto) Eos % (Auto) Baso % (Auto) Absolute Neuts (auto) Absolute Lymphs (auto) Nucleated RBC % Sodium Potassium Chloride Carbon Dioxide Anion Gap BUN Creatinine Estim Creat Clear Calc Est GFR (MDRD) Af Amer Est GFR (MDRD) Non-Af BUN/Creatinine Ratio Glucose Calcium HCG, Quant 35223 H Urine Color Urine Clarity Urine pH Ur Specific [place] Urine Protein Urine Glucose (UA) Urine Ketones Urine Occult Blood Urine Nitrite Urine Bilirubin Urine Urobilinogen Ur Leukocyte Esterase Urine RBC Urine WBC Ur Squamous Epith Cells Urine Bacteria Urine Mucus Discharge Plan Triage Chief Complaint: Nausea/Vomiting ED Midlevel Provider: Sury Canseco ED Provider: Amrik Bowden Dx/Rx/DC Orders Clinical Impression: Pelvic pain, Nausea & vomiting, First trimester Prescriptions: No Action doxycycline monohydrate 100 mg capsule 100 mg PO BID Qty: 28 0RF ibuprofen 600 mg tablet 600 mg PO Q6H PRN PRN (Reason: pain) Qty: 20 0RF Primary Care Provider: Care Physician,No Primary Referrals: Care Physician,No Primary [Primary Care Provider] - Disposition Disposition: Elopement Discharge Date/Time: 08/07/22 15:53
[2022-08-07 14:35] LABS: Absolute Lymphocyte Count 3.15 X10^3/uL (0.83-4.51); Absolute Neutrophil Count 4.6 X10^3/uL (2.0-7.7); Basophil# 0.06 X10^3/uL; Basophil% 0.7 % (0-1); Eosinophils% 5.5 % (0-5); Hemoglobin 14.6 g/dL (12.0-15.0); Lymphocyte # 3.15 X10^3/ul (0.83-4.51); Lymphocyte % 34.8 % (19-41); Mean Corp Hgb Conc 33.2 g/dL (32-36); Mean Corpuscular Volume 93.4 fL (81-99); Mean Platelet Vol. 10.9 fl (6.2-12.0); Monocyte# 0.71 X10^3/uL; Monocyte% 7.9 % (0-10); NRBC Flagged by Analyzer 0 % (0-5); Neutrophil # 4.59 X10^3/uL (2.7-7.7); Neutrophil % 50.8 % (47-70); Platelet Count 297 K/mm3 (150-450); RBC Distribution Width CV 12.7 % (11.6-14.6); RBC Distribution Width SD 43.8 fl (35.1-43.9); Red Blood Count 4.71 M/mm3 (4.2-5.4)
[2022-08-07 14:44] LABS: Mucous, Urine 0 SEEN /hpf (<or=2+)
[2022-08-07 14:51] LABS: Anion Gap 7 (5-15); BUN 7 mg/dL (7-18); BUN/Creat Ratio 10.5 RATIO (10-20); Calcium,Total 8.9 mg/dL (8.5-10.1); Chloride 105 mmol/L (98-107); Creatinine, Serum 0.66 mg/dL (0.55-1.02); EST Glomerular Filtration Rate 113 mL/min (>60); Est Glom Filt Rate - Afr Amer 137 mL/min (>60); Estimated Creatinine Clearance 101.26 ml/min; Glucose 77 mg/dL (74-106); Potassium 3.8 mmol/L (3.5-5.1); Sodium Level 139 mmol/L (136-145)
[2022-08-07 14:56] LABS: Color, Urine Yellow (Yellow); Glucose, Dipstick 100 mg/dl (Normal); Ketone-Dipstick 5 mg/dl (Negative); Leukocyte Esterase-Dipstick 25 /ul (Negative); Nitrite-Dipstick Negative (Negative); Occult Blood-Urine 10 /ul (Negative); Protein-Dipstick 30 mg/dl (Negative); Specific Gravity, Urine 1.015 (1.002-1.030); Urine Bilirubin Dipstick Negative (Negative); Urine Clarity Sl. Cloudy (Clear); Urine Urobilinogen Normal (Normal)
[2022-08-07 15:03] LABS: Squamous Epithelial Cells - UA 10-25 SEEN /hpf (5-10)
[2022-08-07 15:04] LABS: Bacteria 2+ /hpf (None Seen); Red Blood Cells-Urine 0-5 SEEN /hpf (0-5); White Blood Cells 5-10 SEEN /hpf (0-5)
--- NOTE | 2022-08-07 15:29 | ED.RN ---
Pt. refused venous duplex as she does not want to wait for results. States I am ready to go home. Dior MONCADA notified.
--- NOTE | 2022-08-07 15:47 | ED.RN ---
PT STATES THAT SHE DOES NOT WANT TO WAIT ANOTHER HOUR FOR ULTRASOUND RESULTS. PT WANTED IV OUT. PT STATES THE IV MADE ME FEEL BETTER. I JUST WANT TO GO HOME TO BE WITH MY BABIES. PT STATES UNDERSTANDING THAT THIS RN CANNOT GIVE RESULTS. ANTWAN SAGASTUME AND DR. SCHAEFFER MADE AWARE.
[2022-08-07 15:50] VITALS: RESP 16
== END 2022-08-07 15:53 | disposition left against medical advice (07) ==
PROVIDERS: Physician Assistant; Emergency Provider Emergency Medicine; Visit Provider Emergency Medicine
DX: O26.891 Other specified pregnancy related conditions, first trimester (principal); O21.0 Mild hyperemesis gravidarum; O99.891 Other specified diseases and conditions complicating pregnancy; O99.321 Drug use complicating pregnancy, first trimester; F12.90 Cannabis use, unspecified, uncomplicated; Z3A.01 Less than 8 weeks gestation of pregnancy; Z87.891 Personal history of nicotine dependence
CPT/HCPCS: 80048; 81001; 84702; 85025; 87086; 87088; 96374; 99282; J7030; A4216

== ENCOUNTER → 2022-08-26 | Outpatient (CLI) | payer MEDICAID, SELFPAY ==
[2022-08-29 04:07] LABS: Chlamydia By Nucleic Acid AMP Negative (Negative)
[2022-08-29 10:34] LABS: Gonococcus By Nucleic Acid AMP Negative (Negative)
[2022-09-02 20:50] LABS: HPV Reflexed? NOT INDICATED
== END | disposition home or self-care (01) ==
LOC: LABSPEC 17:02
PROVIDERS: Visit Provider Obstetrics & Gynecology
DX: O09.90 Supervision of high risk pregnancy, unspecified, unspecified trimester (principal); Z12.4 Encounter for screening for malignant neoplasm of cervix; Z3A.00 Weeks of gestation of pregnancy not specified
CPT/HCPCS: 87491; 87591; 88175; G0145

== ENCOUNTER 2022-09-23 13:10 | Emergency (ER) | payer MEDICAID, SELFPAY ==
[2022-09-23 13:11] VITALS: BP 124/68; PULSE 124; RESP 15; TEMP 36.2; O2SAT 100; BMI 27.8
[2022-09-23] MEDS: 0.9% Normal Saline 1,000 ML 999 ML IV ×2 (13:43→14:53)
--- NOTE | 2022-09-23 13:49 | ED.VIS.GI ---
HPI HPI - GI History of Present Illness Chief Complaint: Nausea/Vomiting Narrative Narrative: 27-year-old G4, P1 at approximately 15 weeks gestation presents with nausea and vomiting for the last 3 days. She states she feels dehydrated because she has a headache and abdominal pain from her multiple episodes of vomiting. She states she vomited 20 times in the last 24 hours without any blood in her emesis. No vaginal bleeding or other symptoms. She has ondansetron at home but states she cannot take it because she cannot even hold down water. She denies other symptoms. PFSH PFS Medical History Active drug dependence Amphetamine abuse History of drug abuse in remission Methamphetamine abuse Home Medications bupropion HCl 150 mg tablet,12 hr sustained-release (Wellbutrin SR) 150 mg PO DAILY 08/11/22 [History Last Taken Unknown] buspirone 15 mg tablet 15 mg PO TID 08/11/22 [History Last Taken Unknown] prochlorperazine maleate 10 mg tablet (Compazine) 10 mg PO Q8H PRN nausea and vomiting #90 tabs 08/11/22 [Rx Last Taken Unknown] ondansetron HCl 4 mg tablet 4 mg PO Q6H #30 tabs 08/26/22 [Rx Last Taken Unknown] ondansetron 4 mg disintegrating tablet 4 mg PO Q6H PRN nausea and vomiting #20 tabs 09/23/22 [Rx Last Taken Unknown] Allergy/AdvReac Type Severity Reaction Status Date / Time latex Allergy Intermediate Hives Verified 08/26/22 13:12 nitrofurantoin Allergy Intermediate Rash Verified 08/26/22 13:12 azithromycin Allergy Rash Verified 08/26/22 13:12 [From Zithromax Z-Jose] Family History Mother Hypertension Grandmother Breast cancer, Onset Age: 42 Maternal Father Prostate cancer, Onset Age: 52 Social History adopted: No household members: significant other and children number of children: 3 current occupational status: unemployed pets and animals: Yes pets and animals: dog(s) history of recent travel: No sexually active: Yes Smoking Status: Former smoker alcohol intake: former details: Not while substance use type: marijuana well-balanced diet: daily or most days caffeine: Yes Type: carbonated beverages Number of servings: 1 during the past year weight has: remained stable what type of physical activity do you participate in: none josé miguel/islam: Evangelical seatbelt use: always do you feel safe at home: Yes additional social history: [place]- [employer]- [employer] Techn[employer] ROS ROS ED ROS Narrative Constitutional: No fever, no chills. HEENT: No sore throat. No neck pain. No loss of vision. No rhinorrhea. Cardiovascular: No chest pain. No palpitations. No pedal edema. Respiratory: No cough, no shortness of breath. Abdominal: No abdominal pain. Right-sided abdominal cramping. Positive nausea. Positive vomiting. Genitourinary: No dysuria. No hematuria. Musculoskeletal: No myalgias. No arthralgias. Neurologic: Positive headaches. No dizziness. No lightheadedness. Skin: No rash. No change in color. Psychiatric: No depression. No anxiety. EXAM Physical Exam Narrative Exam Narrative: Afebrile. Vital signs noted. HEENT: Normocephalic. Atraumatic. PERRL, EOMI. Neck soft and supple. No point tenderness or step off. Cardiovascular: Positive tachycardia. No murmurs, rubs, or gallops appreciated. Respiratory: No tachypnea. Lungs clear to auscultation bilaterally. Gastrointestinal: Abdomen soft, nontender, with normoactive bowel sounds. No rebound or guarding. Neurological: Awake. Alert. Nonfocal, nonlateralizing. Skin: No rash. Normal color. No pallor. Musculoskeletal: No pedal edema. Full range of motion extremities. Const Vital Signs: 09/23/22 13:11 Temperature 97.2 F L Temperature Source Temporal Pulse Rate 124 H Respiratory Rate 15 Blood Pressure 124/68 H Blood Pressure Mean 86 Pulse Ox 100 Oxygen Delivery Method Room Air MDM MDM MDM Narrative Medical decision making narrative: Nursing protocols were started. BMP was obtained along with UA. She was bolused normal saline 1 L intravenously and administered ondansetron intravenously. Her BMP shows sodium slightly low at 134 with a potassium of 3.3. Glucose appropriately elevated at 115. Normal BUN and creatinine. She was given an additional bolus. There has been no vomiting here in the ED. She states that she is out of her Zofran. I called her in a prescription for 20 more ODT's, but she does have 4 refills noted on her prescription at the [facility] in [place]. She does not want to wait for her urinalysis results. She has follow-up with her [employer] tomorrow. They can check her urine there. If there are ketones in her urine, she has already been bolused a total of 2 L of normal saline. I feel she can be discharged safely home with follow-up. Return instructions to the emergency department were reviewed. Disposition is discharged home in stable condition. Lab Data Labs: Laboratory Results - last 24 hr 09/23/22 13:41 Sodium 134 L Potassium 3.3 L Chloride 100 Carbon Dioxide 27.0 Anion Gap 7 BUN 7 Creatinine 0.69 Estim Creat Clear Calc 96.86 Est GFR (MDRD) Af Amer 130 Est GFR (MDRD) Non-Af 108 BUN/Creatinine Ratio 10.1 Glucose 115 H Calcium 8.6 Discharge Plan Triage Chief Complaint: Nausea/Vomiting ED Provider: Edilson Gabriel Dx/Rx/DC Orders Clinical Impression: Nausea and vomiting during prior to 22 weeks gestation, Hypokalemia Instructions: ED Hypokalemia, ED Vomiting (Adult) Prescriptions: New ondansetron 4 mg tablet,disintegrating 4 mg PO Q6H PRN (Reason: nausea and vomiting) Qty: 20 0RF No Action bupropion HCl [Wellbutrin SR] 150 mg tablet sustained-release 12 hr 150 mg PO DAILY buspirone 15 mg tablet 15 mg PO TID ondansetron HCl 4 mg tablet 4 mg PO Q6H Qty: 30 4RF prochlorperazine maleate [Compazine] 10 mg tablet 10 mg PO Q8H PRN (Reason: nausea and vomiting) Qty: 90 3RF Primary Care Provider: Care Physician,No Primary Referrals: Care Physician,No Primary [Primary Care Provider] - Activity Restrictions/Additional Instructions: Check and see if you have a refill of your Zofran at the [facility] in [place], you may have 4 refills remaining. If not, [facility] Zofran [facility]'s. Start a clear liquid diet and advance as tolerated. Disposition Disposition: Home, Self Care
[2022-09-23 13:59] LABS: Anion Gap 7 (5-15); BUN 7 mg/dL (7-18); BUN/Creat Ratio 10.1 RATIO (10-20); Calcium,Total 8.6 mg/dL (8.5-10.1); Chloride 100 mmol/L (98-107); Creatinine, Serum 0.69 mg/dL (0.55-1.02); EST Glomerular Filtration Rate 108 mL/min (>60); Est Glom Filt Rate - Afr Amer 130 mL/min (>60); Estimated Creatinine Clearance 96.86 ml/min; Glucose 115 mg/dL (74-106); Potassium 3.3 mmol/L (3.5-5.1); Sodium Level 134 mmol/L (136-145)
[2022-09-23] MEDS: Ondansetron 4 MG/2 ML Vial IV (14:53)
[2022-09-23 16:10] LABS: Red Blood Cells-Urine 0 SEEN /hpf (0-5)
[2022-09-23 16:16] LABS: Color, Urine Amber (Yellow); Glucose, Dipstick Normal (Normal); Leukocyte Esterase-Dipstick 100 /ul (Negative); Nitrite-Dipstick Positive (Negative); Occult Blood-Urine Negative /ul (Negative); Protein-Dipstick 30 mg/dl (Negative); Specific Gravity, Urine 1.015 (1.002-1.030); Urine Clarity Turbid (Clear); Urine Urobilinogen 1 mg/dl (Normal)
[2022-09-23 16:31] LABS: Urine Bilirubin Dipstick 1 mg/dL (Negative)
[2022-09-23 16:32] LABS: Ketone-Dipstick 150 mg/dl (Negative)
[2022-09-23] MEDS: Cephalexin 250 MG Capsule 500 MG PO (16:44)
[2022-09-23 16:49] LABS: Squamous Epithelial Cells - UA 25-50 SEEN /hpf (5-10)
[2022-09-23 16:50] LABS: Bacteria 4+ /hpf (None Seen); Mucous, Urine 4+ /hpf (<or=2+); White Blood Cells 0-5 SEEN /hpf (0-5)
== END 2022-09-23 16:47 | disposition home or self-care (01) ==
PROVIDERS: Emergency Medicine; Emergency Provider Emergency Medicine; Visit Provider Emergency Medicine
DX: O21.9 Vomiting of pregnancy, unspecified (principal); O99.282 Endocrine, nutritional and metabolic diseases complicating pregnancy, second trimester; O99.322 Drug use complicating pregnancy, second trimester; E87.6 Hypokalemia; F12.90 Cannabis use, unspecified, uncomplicated; Z3A.15 15 weeks gestation of pregnancy; Z87.891 Personal history of nicotine dependence
CPT/HCPCS: 80048; 81001; 96374; 99282; J7030; J2405

== ENCOUNTER 2022-09-24 08:49 | Emergency (ER) | payer MEDICAID, SELFPAY ==
[2022-09-24 08:52] VITALS: BP 114/62; PULSE 95; RESP 17; TEMP 36.8; O2SAT 97; BMI 27.8
--- NOTE | 2022-09-24 09:41 | US_ITS ---
STUDY: ABDOMINAL ULTRASOUND - RIGHT UPPER QUADRANT REASON FOR VISIT: Female, 27 years old PAIN -- ruq pain -- 15 weeks TECHNIQUE: Ultrasound evaluation of the right upper quadrant was performed with real-time and static ray-scale imaging. TECHNICAL QUALITY: Adequate. COMPARISON: CT abdomen/pelvis without contrast from 07/22/2020. Kidneys/bladder ultrasound from 09/24/2022. FINDINGS: Liver: The liver measures 16.1 cm. Normal size. There is increased echogenicity consistent with fatty infiltration. The bile ducts are within normal limits. No parenchymal masses. The direction of portal flow is hepatopetal. Gallbladder: Normal distended gallbladder. The gallbladder wall measures 1.7 mm. There is a negative sonographic García''s sign. There is no pericholecystic fluid. There are no gallstones. Common Bile Duct (C.B.D.): The common bile duct measures 3.0 mm. Pancreas: The visualized pancreas is unremarkable. Kidneys: Dictated separately on dedicated kidney/bladder ultrasound examination from same day. US/Gallbladder IMPRESSION: 1. No acute findings. 2. Diffuse hepatic steatosis. No hepatic masses. Electronically Signed: Tima Lamas, at 11:42 EST ,
--- NOTE | 2022-09-24 09:41 | US_ITS ---
INDICATION: Right flank pain EXAMINATION: Ultrasound US Kidney(s) complete (eg, kidneys and bladder) TECHNIQUE: Hebert scale and color doppler images were obtained of the kidneys. COMPARISON: CT abdomen and pelvis without contrast from 07/22/2020 FINDINGS: RIGHT KIDNEY: 12.7 x 6.1 x 4.4 cm. Normal size. The cortex measures 1.3 cm and is within normal limits. No parenchymal masses. No hydronephrosis or nephrolithiasis. LEFT KIDNEY: 12.4 x 5.1 x 4.3 cm. Normal size.. The cortex measures 1.3 cm and is within normal limits. No parenchymal masses. No hydronephrosis or nephrolithiasis. URINARY BLADDER: The bladder is collapsed and not well assessed. No bladder wall thickening on limited evaluation. US/Kidney and Bladder IMPRESSION: No hydronephrosis or nephrolithiasis. Electronically Signed: Tima Lamas, at 11:38 EST ,
--- NOTE | 2022-09-24 09:44 | EX.ED.DYSGE1 ---
HPI History of Present Illness Chief Complaint: Flank Pain Informant: patient Narrative Narrative: Patient presents with right-sided flank pain. She was seen here yesterday for several days of nausea and vomiting. She has chronic problems with nausea and vomiting. She is on chronic Zofran. Zofran she had run out of. The nausea and vomiting now seems to be better. But she has since developed pain in her right flank right back area. It will occasionally radiate down toward her right lower quadrant. No fevers or chills. Nothing makes it better or worse. She did start cephalexin for possible UTI yesterday. But she is not having dysuria. She is currently 15 weeks . She has an appointment with her OB doctor today at 2:00. But she called them to try to get in earlier and could not get hold of anyone so she came to the emergency department. She has not had any intra-abdominal surgery. Nothing specifically makes the symptoms better or worse. [facility] Medical History Active drug dependence Amphetamine abuse History of drug abuse in remission Methamphetamine abuse Home Medications bupropion HCl 150 mg tablet,12 hr sustained-release (Wellbutrin SR) 150 mg PO DAILY 08/11/22 [History Last Taken Unknown] buspirone 15 mg tablet 15 mg PO TID 08/11/22 [History Last Taken Unknown] prochlorperazine maleate 10 mg tablet (Compazine) 10 mg PO Q8H PRN nausea and vomiting #90 tabs 08/11/22 [Rx Last Taken Unknown] cephalexin 500 mg capsule 500 mg PO BID #14 caps 09/23/22 [Rx Last Taken Unknown] ondansetron 4 mg disintegrating tablet 4 mg PO Q6H PRN nausea and vomiting #20 tabs 09/23/22 [Rx Last Taken Unknown] vitamin-ferrous sulfate 27 mg iron-folic acid 0.8 mg tablet 1 tab PO DAILY 09/24/22 [History Last Taken Unknown] promethazine 25 mg tablet 25 mg PO TID PRN nausea and vomiting #14 tabs 09/24/22 [Rx Last Taken Unknown] Allergy/AdvReac Type Severity Reaction Status Date / Time latex Allergy Intermediate Hives Verified 08/26/22 13:12 nitrofurantoin Allergy Intermediate Rash Verified 08/26/22 13:12 azithromycin Allergy Rash Verified 08/26/22 13:12 [From Zithromax Z-Jose] Family History Mother Hypertension Grandmother Breast cancer, Onset Age: 42 Maternal Father Prostate cancer, Onset Age: 52 Social History adopted: No household members: significant other and children number of children: 3 current occupational status: unemployed pets and animals: Yes pets and animals: dog(s) history of recent travel: No sexually active: Yes Smoking Status: Former smoker alcohol intake: former details: Not while substance use type: marijuana well-balanced diet: daily or most days caffeine: Yes Type: carbonated beverages Number of servings: 1 during the past year weight has: remained stable what type of physical activity do you participate in: none josé miguel/yazidi: Anabaptism seatbelt use: always do you feel safe at home: Yes additional social history: [employer]- 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 Genitourinary Genitourinary ED: Denies dysuria or hematuria Musculoskeletal Musculoskeletal: Reports other Details: She does have pain in the right flank but most of it is indirect right lateral and right upper quadrant area. It radiates to the right posterior flank and occasionally slightly down toward the right lower quadrant but not all the way. ; Denies neck pain Integumentary Denies rash Neurologic Neurologic: Denies paresthesias Psychiatric Psychiatric: Reports anxiety Endocrine Endocrinology: Denies polydipsia or polyuria Hematologic/Lymphatic Hematologic/Lymphatic: Denies easy bleeding or easy bruising Allergic/Immunologic Allergic/Immunologic ED: Denies urticaria EXAM Physical Exam Const Vital Signs: 09/24/22 08:52 09/24/22 11:11 09/24/22 13:00 Temperature 98.2 F Temperature Source Temporal Pulse Rate 95 78 Respiratory Rate 17 16 18 Blood Pressure 114/62 Blood Pressure Mean 79 Pulse Ox 97 99 Oxygen Delivery Method Room Air Room Air Positive well nourished and well developed General Appearance ED: well developed and NAD; Negative for pallor HEENT Reports moist mucous membranes Eyes General Eye ED: Negative for scleral icterus Neck supple Resp normal respiratory effort and clear to auscultation bilaterally Cardio regular rate and regular rhythm GI normal to inspection, nondistended, normoactive bowel sounds GI Narrative: Patient has some mild tenderness really to the right upper quadrant laterally. She has a little bit of CVA tenderness but even with soft touch to the skin and paraspinal area. I am not getting any uterus or Bridgette abdominal tenderness. I do not get any tenderness to the right lower quadrant even though she states occasionally it seems to radiate down that direction. Narrative: No suprapubic tenderness. Back/Spine General Back: CVA tenderness Extremity normal to inspection General Extremety ED: Negative for edema General Extremity: Negative for edema Neuro Sensorium / Orientation: alert Psych mental status grossly normal Skin no wounds General Skin Exam: Negative for jaundice or pallor MDM MDM MDM Narrative Medical decision making narrative: Ultrasound of gallbladder and renal ultrasound showed no acute process. Patient CBC is normal including white count and platelets. Electrolytes are overall unremarkable. Glucose is minimally elevated at 116. There is no sign of dehydration with a BUN to creatinine ratio of 5.8. Liver function test are normal. Lipase is normal. Urine is cloudy but almost all of her old urinalysis showed cloudiness. There really are not any white cells. There are some increased epithelial cells. But there is also nitrites. I discussed the case with Dr. Arita who the patient was scheduled to see this afternoon. We do agree that the patient should be able to go home. It certainly possible she has pyelonephritis. However she has no fever white count hypotension tachycardia or signs of dehydration. I will give her an IV dose of antibiotics here. I will add Zofran to her meds. We discussed reasons to return including fevers, worsening pain. I do not think this patient represents acute appendicitis. Her pain is really upper abdomen and flank. It occasionally radiates to the lower abdomen but she is not tender there. Lab Data Attestation: I reviewed the patient's lab results. Labs: Laboratory Results - last 24 hr 09/24/22 09/24/22 09/24/22 09:02 09:02 09:56 WBC 7.2 RBC 4.10 L Hgb 12.9 Hct 37.5 MCV 91.5 MCH 31.5 MCHC 34.4 RDW Std Deviation 42.1 RDW Coeff of Earline 12.7 Plt Count 290 MPV 11.3 Immature Gran % (Auto) 0.300 Neut % (Auto) 52.3 Lymph % (Auto) 33.6 [place] % (Auto) 8.1 Eos % (Auto) 5.4 H Baso % (Auto) 0.3 Absolute Neuts (auto) 3.8 Absolute Lymphs (auto) 2.43 Nucleated RBC % 0 Sodium 139 Potassium 3.5 Chloride 104 Carbon Dioxide 28.0 Anion Gap 7 BUN 3 L Creatinine 0.52 L Estim Creat Clear Calc 128.53 Est GFR (MDRD) Af Amer 182 Est GFR (MDRD) Non-Af 150 BUN/Creatinine Ratio 5.8 L Glucose 116 H Calcium 8.1 L Total Bilirubin 0.20 AST 18 ALT 21 Alkaline Phosphatase 47 Total Protein 6.7 Albumin 2.8 L Globulin 3.9 Albumin/Globulin Ratio 0.7 L Lipase 71 L Urine Color Yellow Urine Clarity Sl. Cloudy Urine pH 7.0 Ur Specific [place] 1.010 Urine Protein 30 H Urine Glucose (UA) Normal Urine Ketones 15 H Urine Occult Blood Negative Urine Nitrite Positive H Urine Bilirubin 3 H Urine Urobilinogen 8 H Ur Leukocyte Esterase 25 H Urine RBC 0 SEEN Urine WBC 0-5 SEEN Ur Squamous Epith Cells 5-10 SEEN Urine Bacteria 1+ Urine Mucus 0 SEEN Radiography Diagnostic Testing: Clinical Impression(s) from Imaging Studies Gallbladder Ultrasound 09/24/22 09:41 IMPRESSION: 1. No acute findings. 2. Diffuse hepatic steatosis. No hepatic masses. Electronically Signed: Tima Lamas, at 11:42 EST , Renal Ultrasound 09/24/22 09:41 IMPRESSION: No hydronephrosis or nephrolithiasis. Electronically Signed: Tima Lamas, at 11:38 EST , See above in MDM. Discharge Plan Triage Chief Complaint: Flank Pain ED Provider: Tanner Alcantara Dx/Rx/DC Orders Clinical Impression: Acute flank pain, UTI (urinary tract infection) Instructions: ED Flank Pain, Uncertain Cause Prescriptions: New promethazine 25 mg tablet 25 mg PO TID PRN (Reason: nausea and vomiting) Qty: 14 0RF No Action bupropion HCl [Wellbutrin SR] 150 mg tablet sustained-release 12 hr 150 mg PO DAILY buspirone 15 mg tablet 15 mg PO TID ondansetron 4 mg tablet,disintegrating 4 mg PO Q6H PRN (Reason: nausea and vomiting) Qty: 20 0RF cephalexin 500 mg capsule 500 mg PO BID Qty: 14 0RF 27 mg iron- 0.8 mg Tablet 1 tab PO DAILY prochlorperazine maleate [Compazine] 10 mg tablet 10 mg PO Q8H PRN (Reason: nausea and vomiting) Qty: 90 3RF Primary Care Provider: Care Physician,No Primary Referrals: Marie Arita MD [Med Staff - Active Staff] - 1-2 Days if not improving Care Physician,No Primary [Primary Care Provider] - Disposition Disposition: Home, Self Care
[2022-09-24] MEDS: 0.9% Normal Saline 1,000 ML 1000 ML IV (09:52)
[2022-09-24] MEDS: Ondansetron 4 MG/2 ML Vial IV (09:53)
[2022-09-24 10:00] LABS: Mucous, Urine 0 SEEN /hpf (<or=2+); Red Blood Cells-Urine 0 SEEN /hpf (0-5)
[2022-09-24 10:04] LABS: Absolute Lymphocyte Count 2.43 X10^3/uL (0.83-4.51); Absolute Neutrophil Count 3.8 X10^3/uL (2.0-7.7); Basophil# 0.02 X10^3/uL; Basophil% 0.3 % (0-1); Eosinophil# 0.39 X10^3/uL; Eosinophils% 5.4 % (0-5); Hematocrit 37.5 % (37-47); Hemoglobin 12.9 g/dL (12.0-15.0); Lymphocyte # 2.43 X10^3/ul (0.83-4.51); Lymphocyte % 33.6 % (19-41); Mean Corp Hgb Conc 34.4 g/dL (32-36); Mean Corpuscular Hgb 31.5 pg (27.0-32.0); Mean Corpuscular Volume 91.5 fL (81-99); Mean Platelet Vol. 11.3 fl (6.2-12.0); Monocyte# 0.59 X10^3/uL; Monocyte% 8.1 % (0-10); NRBC Flagged by Analyzer 0 % (0-5); Neutrophil # 3.79 X10^3/uL (2.7-7.7); Neutrophil % 52.3 % (47-70); Platelet Count 290 K/mm3 (150-450); RBC Distribution Width CV 12.7 % (11.6-14.6); RBC Distribution Width SD 42.1 fl (35.1-43.9); White Blood Count 7.2 K/mm3 (4.4-11.0)
[2022-09-24 10:09] LABS: ALB/GLOB Ratio 0.7 RATIO (0.9-2.4); AST(SGOT) 18 U/L (15-37); Alanine Aminotransfer ALT/SGPT 21 U/L (13-56); Albumin, Serum 2.8 g/dL (3.2-5.0); Alkaline Phosphatase 47 U/L (45-117); Anion Gap 7 (5-15); BUN 3 mg/dL (7-18); BUN/Creat Ratio 5.8 RATIO (10-20); Calcium,Total 8.1 mg/dL (8.5-10.1); Chloride 104 mmol/L (98-107); Creatinine, Serum 0.52 mg/dL (0.55-1.02); EST Glomerular Filtration Rate 150 mL/min (>60); Est Glom Filt Rate - Afr Amer 182 mL/min (>60); Estimated Creatinine Clearance 128.53 ml/min; Globulin 3.9 g/dL (2.2-4.2); Glucose 116 mg/dL (74-106); Lipase 71 U/L (73-393); Potassium 3.5 mmol/L (3.5-5.1); Protein, Total 6.7 g/dL (6.4-8.2); Sodium Level 139 mmol/L (136-145)
[2022-09-24 10:12] LABS: Color, Urine Yellow (Yellow); Glucose, Dipstick Normal (Normal); Ketone-Dipstick 15 mg/dl (Negative); Leukocyte Esterase-Dipstick 25 /ul (Negative); Nitrite-Dipstick Positive (Negative); Occult Blood-Urine Negative /ul (Negative); Protein-Dipstick 30 mg/dl (Negative); Urine Clarity Sl. Cloudy (Clear); Urine Urobilinogen 8 mg/dl (Normal)
[2022-09-24 10:16] LABS: Urine Bilirubin Dipstick 3 mg/dL (Negative)
[2022-09-24 10:25] LABS: Bacteria 1+ /hpf (None Seen); Squamous Epithelial Cells - UA 5-10 SEEN /hpf (5-10); White Blood Cells 0-5 SEEN /hpf (0-5)
[2022-09-24 11:11] VITALS: RESP 16
[2022-09-24 13:00] VITALS: PULSE 78; RESP 18; O2SAT 99
--- NOTE | 2022-09-24 13:11 | ED.RN ---
Patient requesting medication for pain at this time. Dr. Alcantara notified of request and is currently going to consult with Dr. Turcios
--- NOTE | 2022-09-24 13:15 | CM.ED ---
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 SW inquired about patient's PCP and was informed by patient she has a PCP with [facility] but couldn't recall their name. SW offered patient information regarding local PCPs as well as nurse/transportation contact information based on her insurance. Patient declined resources. No other concerns/needs voiced at this time. SW remains available if needs arise. Mariama Trevino MSW, JULIENNE
[2022-09-24] MEDS: Morphine 2 MG/ML Syringe IV (13:16)
[2022-09-24] MEDS: Ceftriaxone 1 GM/50 ML BAG IV (13:42)
[2022-09-24 16:24] LABS: Amphetamine Urine VISTA NEGATIVE (<1000 ng/mL); Barbiturate Urine VISTA POSITIVE (< 200 ng/mL); Benzodiazepine Urine VISTA NEGATIVE (< 200 ng/mL); Cocaine Urine VISTA NEGATIVE (< 300 ng/mL); Ecstacy Urine VISTA NEGATIVE (< 500 ng/mL); Methadone Urine VISTA NEGATIVE (< 300 ng/mL); PCP Urine VISTA NEGATIVE (< 25 ng/mL); THC Urine VISTA POSITIVE (< 50 ng/mL); Vista UDS pH Range 6
== END 2022-09-24 14:54 | disposition home or self-care (01) ==
PROVIDERS: Emergency Provider Emergency Medicine; Visit Provider Emergency Medicine
DX: O26.892 Other specified pregnancy related conditions, second trimester (principal); O23.42 Unspecified infection of urinary tract in pregnancy, second trimester; O99.322 Drug use complicating pregnancy, second trimester; F12.90 Cannabis use, unspecified, uncomplicated; Z87.891 Personal history of nicotine dependence; Z79.899 Other long term (current) drug therapy; Z3A.15 15 weeks gestation of pregnancy
CPT/HCPCS: 76705; 76770; 80053; 80307; 81001; 83690; 85025; 87086; 87088; 96361; 96365; 96375; 99282; J7030; A4216; J2405

== ENCOUNTER 2022-12-25 17:36 | Outpatient (CLI) | payer MEDICAID, SELFPAY ==
[2022-12-25 17:54] VITALS: TEMP 37.5; TEMP 37.7
[2022-12-25 17:55] VITALS: BP 117/62; PULSE 96
[2022-12-25 17:56] VITALS: BMI 28.0
[2022-12-25 18:00] VITALS: TEMP 37.5
[2022-12-25 18:29] LABS: ROM Internal Control Test YES-OK TO RESULT pt. (Internal QC); ROM Patient Test Negative (Negative)
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
[2022-12-25 19:13] LABS: Absolute Lymphocyte Count 2.55 X10^3/uL (0.83-4.51); Absolute Neutrophil Count 5.7 X10^3/uL (2.0-7.7); Basophil# 0.03 X10^3/uL; Basophil% 0.3 % (0-1); Eosinophil# 0.31 X10^3/uL; Eosinophils% 3.3 % (0-5); Hematocrit 36.1 % (37-47); Hemoglobin 11.9 g/dL (12.0-15.0); Lymphocyte # 2.55 X10^3/ul (0.83-4.51); Lymphocyte % 27.5 % (19-41); Mean Corpuscular Hgb 30.1 pg (27.0-32.0); Mean Corpuscular Volume 91.4 fL (81-99); Mean Platelet Vol. 11.3 fl (6.2-12.0); Monocyte# 0.66 X10^3/uL; Monocyte% 7.1 % (0-10); NRBC Flagged by Analyzer 0 % (0-5); Neutrophil % 61.7 % (47-70); Platelet Count 261 K/mm3 (150-450); RBC Distribution Width CV 13.2 % (11.6-14.6); RBC Distribution Width SD 44.2 fl (35.1-43.9); Red Blood Count 3.95 M/mm3 (4.2-5.4); White Blood Count 9.3 K/mm3 (4.4-11.0)
[2022-12-25 19:20] LABS: Fibrinogen 425 mg/dl (203-444)
[2022-12-25 19:52] LABS: Rubella IgG Reactive (Nonreactive); Syphilis Antibodies Non-reactive
[2022-12-25 19:54] VITALS: TEMP 37.6
[2022-12-25 19:55] VITALS: BP 144/64; PULSE 108; O2SAT 99
[2022-12-25 20:12] LABS: HIV - WCH Non-Reactive (Nonreactive); Hepatitis B Surface Antigen Non-Reactive (Nonreactive); Hepatitis C Antibody Non-Reactive (Nonreactive)
--- NOTE | 2022-12-25 20:17 | NURSING ---
Patient leaving unit without discharge information. RN stopped at desk and given discharge information.
[2022-12-25 21:49] LABS: Chlamydia Trachomatis by PCR Negative (Negative); Neisserai gonorrhoeae by PCR Negative (Negative); Probe Check PASS; Sample Adequacy Control PASS; Specimen Processing Control PASS
== END 2022-12-25 20:15 | disposition home or self-care (01) ==
LOC: WPOUT 17:38 → WP 17:38
PROVIDERS: Referring Provider Obstetrics & Gynecology; Visit Provider Obstetrics & Gynecology
DX: O9A.212 Injury, poisoning and certain other consequences of external causes complicating pregnancy, second trimester (principal); O9A.312 Physical abuse complicating pregnancy, second trimester; O99.322 Drug use complicating pregnancy, second trimester; O23.42 Unspecified infection of urinary tract in pregnancy, second trimester; O99.342 Other mental disorders complicating pregnancy, second trimester; O21.2 Late vomiting of pregnancy; S39.91XA Unspecified injury of abdomen, initial encounter; F32.A Depression, unspecified; F41.9 Anxiety disorder, unspecified; F43.10 Post-traumatic stress disorder, unspecified; Z79.899 Other long term (current) drug therapy; F12.10 Cannabis abuse, uncomplicated; Z3A.27 27 weeks gestation of pregnancy; Z87.891 Personal history of nicotine dependence; Y04.8XXA Assault by other bodily force, initial encounter
CPT/HCPCS: 36415; 59025; 59050; 84112; 85025; 85384; 86703; 86762; 86780; 86803; 86850; 86900; 86901; 87340; 87491; 87591

== ENCOUNTER → 2023-01-26 | Outpatient (CLI) | payer MEDICAID, SELFPAY ==
[2023-01-26 10:23] LABS: Glucose Challenge Gest 1H 50g 137 mg/dL (70-140)
== END | disposition home or self-care (01) ==
LOC: LAB 09:13
PROVIDERS: Referring Provider Obstetrics & Gynecology; Visit Provider Obstetrics & Gynecology
DX: Z13.1 Encounter for screening for diabetes mellitus (principal)
CPT/HCPCS: 36415; 82950

== ENCOUNTER → 2023-01-29 | Outpatient (CLI) | payer MEDICAID, SELFPAY ==
[2023-01-29 09:55] LABS: Glucose GTT-Gestation. Fasting 89 mg/dL (<105)
== END | disposition home or self-care (01) ==
PROVIDERS: Referring Provider Nurse Practitioner Women's Health; Visit Provider Nurse Practitioner Women's Health
DX: Z13.1 Encounter for screening for diabetes mellitus (principal)
CPT/HCPCS: 36415; 82951; 82952

== ENCOUNTER → 2023-02-05 | Outpatient (CLI) | payer MEDICAID, SELFPAY ==
[2023-02-05 18:59] LABS: Amphetamine Urine VISTA NEGATIVE (<1000 ng/mL); Barbiturate Urine VISTA NEGATIVE (< 200 ng/mL); Benzodiazepine Urine VISTA NEGATIVE (< 200 ng/mL); Cocaine Urine VISTA NEGATIVE (< 300 ng/mL); Ecstacy Urine VISTA NEGATIVE (< 500 ng/mL); Methadone Urine VISTA NEGATIVE (< 300 ng/mL); PCP Urine VISTA NEGATIVE (< 25 ng/mL); THC Urine VISTA POSITIVE (< 50 ng/mL); Vista UDS pH Range 6
== END | disposition home or self-care (01) ==
LOC: LABSPEC 16:56
PROVIDERS: Referring Provider Nurse Practitioner Women's Health; Visit Provider Nurse Practitioner Women's Health
DX: F12.10 Cannabis abuse, uncomplicated (principal)
CPT/HCPCS: 80307

== ENCOUNTER 2023-02-18 15:45 | Outpatient (CLI) | payer MEDICAID, SELFPAY ==
[2023-02-18] VITALS (7 sets, daily range): BP systolic 106–120; BP diastolic 53–62; PULSE 95–114; TEMP 35.9–37.1; O2SAT 97–99; BMI 28.1
[2023-02-18] MEDS: Lactated Ringers 1,000 ML 999 ML IV ×2 (16:18→17:35)
[2023-02-18] MEDS: Ondansetron 4 MG/2 ML Vial IV (16:25)
[2023-02-18 17:55] LABS: Bedside Glucose 77 mg/dL (74-106)
[2023-02-18 18:25] LABS: Color, Urine Yellow (Yellow); Glucose, Dipstick Normal (Normal); Ketone-Dipstick 50 mg/dl (Negative); Leukocyte Esterase-Dipstick 25 /ul (Negative); Nitrite-Dipstick Negative (Negative); Occult Blood-Urine Negative /ul (Negative); Protein-Dipstick 15 mg/dl (Negative); Urine Bilirubin Dipstick Negative (Negative); Urine Clarity Sl. Cloudy (Clear); Urine Urobilinogen 1 mg/dl (Normal)
[2023-02-18] MEDS: Acetaminophen 500 MG Tablet 1000 MG PO (19:28)
[2023-02-18 20:26] LABS: ROM Internal Control Test YES-OK TO RESULT pt. (Internal QC); ROM Patient Test Negative (Negative)
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
== END 2023-02-18 20:50 | disposition home or self-care (01) ==
LOC: WPOUT 15:49 → WP 15:49
PROVIDERS: Referring Provider Obstetrics & Gynecology; Visit Provider Obstetrics & Gynecology
DX: O99.891 Other specified diseases and conditions complicating pregnancy (principal); O99.323 Drug use complicating pregnancy, third trimester; O99.810 Abnormal glucose complicating pregnancy; O99.343 Other mental disorders complicating pregnancy, third trimester; R11.2 Nausea with vomiting, unspecified; F41.8 Other specified anxiety disorders; Z3A.34 34 weeks gestation of pregnancy; F12.90 Cannabis use, unspecified, uncomplicated
CPT/HCPCS: 96374; 96361; 59025; 59050; 81002; 82962; 84112; 87086; 87088; 99221; J7120; G0378; J2405

== ENCOUNTER 2023-02-21 18:35 | Outpatient (CLI) | payer MEDICAID, SELFPAY ==
[2023-02-21 19:22] VITALS: BP 133/81; PULSE 100; TEMP 36.8; O2SAT 98
[2023-02-21 19:23] LABS: ROM Internal Control Test YES-OK TO RESULT pt. (Internal QC); ROM Patient Test Negative (Negative)
[2023-02-21 19:31] VITALS: BMI 28.3
[2023-02-21] MEDS: Acetaminophen 500 MG Tablet 1000 MG PO (20:56)
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
== END 2023-02-21 21:07 | disposition home or self-care (01) ==
LOC: WPOUT 18:43 → WP 18:44
PROVIDERS: Referring Provider Registered Nurse; Visit Provider Registered Nurse
DX: O47.1 False labor at or after 37 completed weeks of gestation (principal); Z3A.37 37 weeks gestation of pregnancy
CPT/HCPCS: 59025; 59050; 84112

== ENCOUNTER 2023-02-24 22:10 | Outpatient (CLI) | payer MEDICAID, SELFPAY ==
[2023-02-24 22:32] VITALS: PULSE 103; O2SAT 98
[2023-02-24 22:36] VITALS: BP 121/66; PULSE 99
[2023-02-24 22:40] VITALS: BMI 28.5
[2023-02-24] MEDS: Lactated Ringers 1,000 ML 999 ML IV (23:15)
[2023-02-24 23:29] LABS: Mucous, Urine 0 SEEN /hpf (<or=2+); Red Blood Cells-Urine 0 SEEN /hpf (0-5)
[2023-02-24 23:34] LABS: Color, Urine Yellow (Yellow); Glucose, Dipstick Normal (Normal); Ketone-Dipstick Negative (Negative); Leukocyte Esterase-Dipstick 25 /ul (Negative); Nitrite-Dipstick Negative (Negative); Occult Blood-Urine Negative /ul (Negative); Protein-Dipstick 15 mg/dl (Negative); Specific Gravity, Urine 1.015 (1.002-1.030); Urine Bilirubin Dipstick Negative (Negative); Urine Clarity Sl. Cloudy (Clear); Urine Urobilinogen Normal (Normal)
[2023-02-24 23:50] LABS: Bacteria 4+ /hpf (None Seen); Squamous Epithelial Cells - UA 5-10 SEEN /hpf (5-10); Transitional Epithelial - Ur 0-5 SEEN /hpf (0-5); White Blood Cells 10-25 SEEN /hpf (0-5)
[2023-02-25] MEDS: Acetaminophen 500 MG Tablet 1000 MG PO (01:06)
[2023-02-25] MEDS: Mag Hydrox/Al Hydrox/Simeth 30 ML UDC PO (01:06)
[2023-02-25 01:37] VITALS: PULSE 92; O2SAT 97
[2023-02-25 01:42] VITALS: PULSE 81; O2SAT 97
[2023-02-25 01:47] VITALS: PULSE 92; O2SAT 97
[2023-02-25 01:52] VITALS: PULSE 89; O2SAT 97
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
== END 2023-02-25 02:35 | disposition home or self-care (01) ==
LOC: WPOUT 22:19 → WP 22:20
PROVIDERS: Referring Provider Advanced Practice Midwife; Visit Provider Advanced Practice Midwife
DX: O23.43 Unspecified infection of urinary tract in pregnancy, third trimester (principal); Z3A.34 34 weeks gestation of pregnancy; O99.323 Drug use complicating pregnancy, third trimester; F12.10 Cannabis abuse, uncomplicated
CPT/HCPCS: 96360; 59025; 59050; 81001; 87086; 87088; 99221; J7120; G0378; J0696

== ENCOUNTER 2023-03-01 17:00 | Outpatient (CLI) | payer MEDICAID, SELFPAY ==
[2023-03-01 17:18] VITALS: BMI 28.1
[2023-03-01 17:22] VITALS: BP 132/72; PULSE 105
[2023-03-01 17:59] LABS: ROM Internal Control Test YES-OK TO RESULT pt. (Internal QC); ROM Patient Test Negative (Negative); Record Kit Lot#, ROM+ K1374
--- NOTE | 2023-03-06 01:57 | OB.TRI.PN ---
Progress Notes Date of Service: 03/01/23 Progress Note: Patient presents for triage evaluation secondary to contractions and possible ROM FHT: 140 Moderate variability reactive no decelerations category I tracing [place]: irregualr Contractions Assessment and plan: amniotic membranes intact false preterme labor Reactive NST, reassuring maternal and status patient discharged to home to follow-up as ascheduled. See problem list details for additional plan information. Laboratory Studies: Laboratory Tests 03/01/23 Range/Units 17:30 Vag Amniotic Fld Detect Negative (Negative) Charges/Coding Procedures Urinary/Genital 52xxx-59xxx: 53174-06 non-stress test Interp
== END 2023-03-01 18:20 | disposition home or self-care (01) ==
LOC: WPOUT 17:03 → WP 17:04
PROVIDERS: Referring Provider Obstetrics & Gynecology; Visit Provider Obstetrics & Gynecology
DX: O47.9 False labor, unspecified (principal); Z3A.00 Weeks of gestation of pregnancy not specified
CPT/HCPCS: 59025; 59050; 84112; 99221; G0378

== ENCOUNTER 2023-03-06 11:47 | Outpatient (CLI) | payer MEDICAID, SELFPAY ==
[2023-03-06 12:14] LABS: ROM Internal Control Test YES-OK TO RESULT pt. (Internal QC); ROM Patient Test Negative (Negative); Record Kit Lot#, ROM+ K1374
--- NOTE | 2023-03-06 18:54 | US_ITS ---
STUDY: SECOND AND THIRD TRIMESTER OBSTETRICAL ULTRASOUND - LIMITED REASON FOR EXAM: Female, 27 years old GROWTH LMP: 06/19/2022 PRIOR ULTRASOUND: None. TECHNIQUE: Transabdominal TECHNICAL QUALITY: Adequate. FINDINGS: There is a single intrauterine fetus. The fetus is in a cephalic presentation. There is demonstrated cardiac activity with a heart rate of 136 bpm. There is a normal amniotic fluid volume. The largest amniotic fluid pocket measures 4.1 cm. The amniotic fluid index (KESHAV) is 14.5 cm. The placenta is posterior in location and is not low lying. Probable succenturiate lobe There are Grade 3 placental changes. The cervix measures 2.0 cm in length. BIOMETRY: BPD: 8.6: 34 weeks, 6 days HC: 33.7: 38 weeks, 5 days AC: 31.7: 35 weeks, 4 days FL: 6.8: 34 weeks, 5 days Age by LMP: 37 weeks, 1 days. MADAN by LMP: 03/26/2023. age by prior US: weeks, days. MADAN by prior US: . age by current US: 35 weeks, 4 days. MADAN by current US: 04/12/2023. Estimated weight: 2659 grams, +/- 399 grams, 16 percentile. Gender: US/OB Limited With Biometrics IMPRESSION: Single live fetus in a vertex presentation. survey not performed on this exam. Placenta is grade 3 and is not low-lying. Cervix is closed. age by current US: 35 weeks, 4 days. MADAN by current US: 04/12/2023. Estimated weight: 2659 grams, +/- 399 grams, 16 percentile. Electronically Signed: Manjeet House MD at 19:50 EDT ,
[2023-03-06 19:46] VITALS: BP 132/74; PULSE 97
[2023-03-06 19:54] VITALS: BMI 28.8
[2023-03-06 19:59] VITALS: BP 127/76; PULSE 95
[2023-03-06 20:26] VITALS: TEMP 36.8
[2023-03-06 20:43] VITALS: BP 128/77; PULSE 92
[2023-03-06] MEDS: Acetaminophen 500 MG Tablet 1000 MG PO (20:43)
[2023-03-06 21:03] LABS: ROM Internal Control Test YES-OK TO RESULT pt. (Internal QC); ROM Patient Test Negative (Negative); Record Kit Lot#, ROM+ K1374
[2023-03-06 21:36] VITALS: BP 131/77; PULSE 89
[2023-03-06 21:41] VITALS: BP 129/71; PULSE 95
[2023-03-06] MEDS: Mag Hydrox/Al Hydrox/Simeth 30 ML UDC PO (22:00)
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
== END 2023-03-06 22:31 | disposition home or self-care (01) ==
LOC: US 18:54 → WP 19:28
PROVIDERS: PCP Clinical Nurse Specialist; Visit Provider Registered Nurse
DX: O47.1 False labor at or after 37 completed weeks of gestation (principal); O23.43 Unspecified infection of urinary tract in pregnancy, third trimester; Z3A.37 37 weeks gestation of pregnancy
CPT/HCPCS: 59025; 59050; 76816; 84112; 87081; 87086; 99221; G0378

== ENCOUNTER → 2023-03-06 | Outpatient (CLI) | payer MEDICAID, SELFPAY | END | disposition home or self-care (01) | PROVIDERS: Referring Provider Registered Nurse; Visit Provider Registered Nurse | DX: O09.90 Supervision of high risk pregnancy, unspecified, unspecified trimester (principal); Z3A.00 Weeks of gestation of pregnancy not specified ==

== ENCOUNTER 2023-03-09 21:08 | Outpatient (CLI) | payer MEDICAID, SELFPAY ==
[2023-03-09 21:19] VITALS: BP 118/73; PULSE 114
[2023-03-09 21:20] VITALS: PULSE 116; O2SAT 96
[2023-03-09 21:22] VITALS: BMI 28.9
[2023-03-09 21:24] VITALS: PULSE 113; O2SAT 96
[2023-03-09 21:27] VITALS: TEMP 36.9
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
[2023-03-09 22:14] LABS: ROM Internal Control Test YES-OK TO RESULT pt. (Internal QC); ROM Patient Test Negative (Negative); Record Kit Lot#, ROM+ K1374
== END 2023-03-09 22:30 | disposition home or self-care (01) ==
LOC: WPOUT 21:13 → WP 21:13
PROVIDERS: PCP Clinical Nurse Specialist; Referring Provider Registered Nurse; Visit Provider Registered Nurse
DX: O47.1 False labor at or after 37 completed weeks of gestation (principal); O9A.313 Physical abuse complicating pregnancy, third trimester; O99.343 Other mental disorders complicating pregnancy, third trimester; O99.323 Drug use complicating pregnancy, third trimester; F43.10 Post-traumatic stress disorder, unspecified; F12.10 Cannabis abuse, uncomplicated; Z79.899 Other long term (current) drug therapy; Z3A.37 37 weeks gestation of pregnancy; Z87.891 Personal history of nicotine dependence; Z91.040 Latex allergy status
CPT/HCPCS: 59025; 59050; 84112; 99221; G0378

== ENCOUNTER → 2023-03-12 | Outpatient (CLI) | payer MEDICAID, SELFPAY ==
[2023-03-12 10:35] LABS: ROM Internal Control Test YES-OK TO RESULT pt. (Internal QC); ROM Patient Test Negative (Negative); Record Kit Lot#, ROM+ K1374
== END | disposition home or self-care (01) ==
LOC: LABSPEC 09:28
PROVIDERS: PCP Clinical Nurse Specialist; Referring Provider Obstetrics & Gynecology; Visit Provider Obstetrics & Gynecology
DX: O26.899 Other specified pregnancy related conditions, unspecified trimester (principal); N89.8 Other specified noninflammatory disorders of vagina; Z3A.00 Weeks of gestation of pregnancy not specified
CPT/HCPCS: 84112

== ENCOUNTER 2023-03-14 17:30 | Outpatient (CLI) | payer MEDICAID, SELFPAY ==
[2023-03-14] VITALS (7 sets, daily range): BP systolic 130; BP diastolic 66; PULSE 88–110; TEMP 36.3; O2SAT 97–98; BMI 28.9
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
== END 2023-03-14 20:20 | disposition home or self-care (01) ==
LOC: WPOUT 17:35 → WP 17:36
PROVIDERS: PCP Clinical Nurse Specialist; Visit Provider Obstetrics & Gynecology
DX: O47.1 False labor at or after 37 completed weeks of gestation (principal); O99.283 Endocrine, nutritional and metabolic diseases complicating pregnancy, third trimester; O99.323 Drug use complicating pregnancy, third trimester; O99.343 Other mental disorders complicating pregnancy, third trimester; E86.0 Dehydration; F12.10 Cannabis abuse, uncomplicated; F43.10 Post-traumatic stress disorder, unspecified; Z3A.38 38 weeks gestation of pregnancy
CPT/HCPCS: 59025; 59050

== ENCOUNTER → 2023-03-18 | Outpatient (CLI) | payer MEDICAID, SELFPAY ==
[2023-03-18 09:43] LABS: ROM Internal Control Test YES-OK TO RESULT pt. (Internal QC); ROM Patient Test Negative (Negative); Record Kit Lot#, ROM+ K1374
== END | disposition home or self-care (01) ==
LOC: LABSPEC 09:17
PROVIDERS: PCP Clinical Nurse Specialist; Referring Provider Obstetrics & Gynecology; Visit Provider Obstetrics & Gynecology
DX: O26.899 Other specified pregnancy related conditions, unspecified trimester (principal); N89.8 Other specified noninflammatory disorders of vagina; Z3A.00 Weeks of gestation of pregnancy not specified
CPT/HCPCS: 84112

== ENCOUNTER 2023-03-21 20:45 | Outpatient (CLI) | payer MEDICAID, SELFPAY ==
[2023-03-21 21:28] VITALS: PULSE 99; O2SAT 95
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
[2023-03-21 21:29] VITALS: BP 123/71; PULSE 104; TEMP 36.9
[2023-03-21 21:37] VITALS: BMI 28.3
[2023-03-21] MEDS: Mag Hydrox/Al Hydrox/Simeth 30 ML UDC PO (22:23)
== END 2023-03-21 22:50 | disposition home or self-care (01) ==
LOC: WPOUT 20:50 → WP 20:51
PROVIDERS: PCP Clinical Nurse Specialist; Referring Provider Advanced Practice Midwife; Visit Provider Advanced Practice Midwife
DX: O47.1 False labor at or after 37 completed weeks of gestation (principal); O23.43 Unspecified infection of urinary tract in pregnancy, third trimester; O99.343 Other mental disorders complicating pregnancy, third trimester; O99.323 Drug use complicating pregnancy, third trimester; F32.A Depression, unspecified; F41.9 Anxiety disorder, unspecified; F12.90 Cannabis use, unspecified, uncomplicated; Z91.040 Latex allergy status; Z3A.39 39 weeks gestation of pregnancy
CPT/HCPCS: 59025; 59050 ×2; G0378 ×2; 99221

== ENCOUNTER 2023-03-24 11:05 | Inpatient (IN) | payer MEDICAID, SELFPAY ==
[2023-03-24] VITALS (56 sets, daily range): BP systolic 113–162; BP diastolic 55–84; PULSE 87–119; TEMP 36.1–36.9; O2SAT 78–100; BMI 28.4
[2023-03-24] MEDS: Lactated Ringers 1,000 ML 50 ML IV (11:40)
[2023-03-24 12:05] LABS: Absolute Lymphocyte Count 2.66 X10^3/uL (0.83-4.51); Basophil# 0.03 X10^3/uL; Basophil% 0.3 % (0-1); Eosinophil# 0.36 X10^3/uL; Eosinophils% 4.1 % (0-5); Hematocrit 34.3 % (37-47); Hemoglobin 11.4 g/dL (12.0-15.0); Lymphocyte # 2.66 X10^3/ul (0.83-4.51); Lymphocyte % 30.3 % (19-41); Mean Corp Hgb Conc 33.2 g/dL (32-36); Mean Corpuscular Hgb 29.7 pg (27.0-32.0); Mean Corpuscular Volume 89.3 fL (81-99); Mean Platelet Vol. 12.6 fl (6.2-12.0); NRBC Flagged by Analyzer 0 % (0-5); Platelet Count 221 K/mm3 (150-450); RBC Distribution Width CV 16.5 % (11.6-14.6); RBC Distribution Width SD 53.7 fl (35.1-43.9); Red Blood Count 3.84 M/mm3 (4.2-5.4); White Blood Count 8.8 K/mm3 (4.4-11.0)
[2023-03-24 12:29] LABS: Syphilis Antibodies Non-reactive
[2023-03-24] MEDS: Mag Hydrox/Al Hydrox/Simeth 30 ML UDC PO (12:33)
[2023-03-24] MEDS: LACTATED RINGERS 500 ML 999 ML IV (12:33)
[2023-03-24 12:38] LABS: Bedside Glucose 76 mg/dL (74-106)
--- NOTE | 2023-03-24 13:13 | NURSING ---
patient does not have advanced directives, does not want information
[2023-03-24 13:36] LABS: Bedside Glucose 78 mg/dL (74-106)
[2023-03-24 13:36] LABS: Amphetamine Urine VISTA NEGATIVE (<1000 ng/mL); Barbiturate Urine VISTA NEGATIVE (< 200 ng/mL); Benzodiazepine Urine VISTA NEGATIVE (< 200 ng/mL); Cocaine Urine VISTA NEGATIVE (< 300 ng/mL); Ecstacy Urine VISTA NEGATIVE (< 500 ng/mL); Methadone Urine VISTA NEGATIVE (< 300 ng/mL); PCP Urine VISTA NEGATIVE (< 25 ng/mL); THC Urine VISTA NEGATIVE (< 50 ng/mL); Vista UDS pH Range 7
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
[2023-03-24] MEDS: fentaNYL-bupivacaine (epidural) 100 ML BAG EPIDURAL (13:57)
[2023-03-24] MEDS: Acetaminophen 500 MG Tablet PO (15:08)
[2023-03-24] MEDS: Oxytocin 15 Units/NS 250ml 15 UNITS/250 ML IV.SOLN 2 UNITS IV (16:20)
[2023-03-24 16:49] LABS: Bedside Glucose 75 mg/dL (74-106)
[2023-03-24] MEDS: Lactated Ringers 1,000 ML 200 ML IV (17:17)
[2023-03-24] MEDS: Ondansetron 4 MG/2 ML Vial IV (17:22)
[2023-03-24] MEDS: 0.9% Saline Lock 10 ML Syringe IV (17:22)
[2023-03-24 18:04] LABS: Bedside Glucose 80 mg/dL (74-106)
[2023-03-24 19:02] LABS: Bedside Glucose 82 mg/dL (74-106)
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
--- NOTE | 2023-03-24 19:26 | DCINST_ITS ---
Discharge Instructions Diet Discharge Diet: No restrictions Activity Discharge Activity: Return to Normal Activity May resume sexual activity in: 6-8 weeks Dressing / Incision Call your doctor if you observe: Fever of 101 or Higher, Coldness, Increased Pain, Numbness or Tingling, Change in Color, Inability to urinate, Inability to have a bowel movement, Using more than 1 pad per hour, Shortness of breath, Dizziness, Fainting spells, Swelling in the ankles, Chest pain, Increased palpitations (irregular heartbeat), Calf discomfort and Uncontrolled pain Follow Up Care Please Follow Up With: Sade Diaz CNM When: Please call the office to schedule your follow up appointment in 6 weeks. If you had high blood pressure please call to schedule an appointment in 2 weeks. Test Results: Test results from this visit will be discussed in further detail at your follow- up appointment, if applicable. Discharge Plan Admission Admit Date/Time: 03/24/23 11:05 Attending Provider: Sade Diaz Primary Care Provider: Cat Wild NP Discharge Orders/Prescriptions Prescriptions: No Action buspirone 10 mg tablet 20 mg PO TID Rx Instructions: patient states she is only 10mg but suppose to take 20mg bupropion HCl 450 mg tablet extended release 24 hr 450 mg PO DAILY (DME) blood-glucose meter Misc See Rx Instructions .MEDSUPPLY Qty: 1 0RF Rx Instructions: As directed- Test fasting and 2 hours after meals (DME) lancets Misc See Rx Instructions .MEDSUPPLY Qty: 100 5RF Rx Instructions: As directed fasting and 2 hr post meals (DME) Blood Glucose Test Strip See Rx Instructions .Route Qty: 50 5RF Rx Instructions: As directed- fasting and 2 hr post meals vit-ferrous sulfat-FA 27 mg iron- 0.8 mg tablet 1 tab PO DAILY Referrals / Follow Up: Cat Wild NP, SIEVE MAKER-C [Primary Care Provider] - Disposition Disposition (needs filled in before D/C Order can be placed): Home, Self Care
[2023-03-24] MEDS: Oxytocin 15 Units/NS 250ml 15 UNITS/250 ML IV.SOLN 83 UNITS IV (19:57)
[2023-03-24 20:27] LABS: Bedside Glucose 75 mg/dL (74-106)
[2023-03-24] MEDS: Ibuprofen 600 MG Tablet PO (20:48)
[2023-03-24] MEDS: busPIRone 5 MG Tablet 20 MG PO (22:37)
[2023-03-24] MEDS: Acetaminophen 500 MG Tablet 1000 MG PO (22:44)
[2023-03-25 02:00] VITALS: BP 102/50; PULSE 93; RESP 14
[2023-03-25] MEDS: Ibuprofen 600 MG Tablet PO ×3 (02:50→17:17)
[2023-03-25] MEDS: Acetaminophen 500 MG Tablet 1000 MG PO ×3 (05:05→22:16)
[2023-03-25 05:58] LABS: Bedside Glucose 84 mg/dL (74-106)
[2023-03-25] MEDS: busPIRone 5 MG Tablet 20 MG PO ×3 (06:00→22:16)
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
[2023-03-25 08:17] VITALS: BP 116/69; PULSE 94; RESP 16; TEMP 36.8; O2SAT 96
[2023-03-25] MEDS: cycloBENZAPRine HCl 10 MG Tablet PO (08:38)
[2023-03-25] MEDS: buPROPion (XL) 300 MG TABLET.XL PO (09:40)
[2023-03-25] MEDS: buPROPion (XL) 150 MG TABLET.XL PO (09:40)
[2023-03-25 12:52] VITALS: BP 106/54; PULSE 86; RESP 16; TEMP 36.6
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
[2023-03-25 17:19] VITALS: BP 106/55; PULSE 81; RESP 16; TEMP 36.6
--- NOTE | 2023-03-25 19:12 | PCM.PN.BLA ---
Progress Note nexplanon insertion : left arm bent and cleansed with betadine. injection of 2cc of 1% lidocaine was inserted 8 cm from the lateral epicondyle. The nexplanon was inserted without difficulty while tenting up the skin. A bandaid and coban were then applied. the patient tolerated the procedure well. Procedures Urinary/Genital 52xxx-59xxx: Other Procedure See Report
[2023-03-25] MEDS: Etonogestrel 68 MG IMPLANT SC (19:33)
[2023-03-25] MEDS: Lidocaine 1% (20 ml mdv) 20 ML Vial INFILT (19:34)
[2023-03-25 21:10] VITALS: BP 119/71; PULSE 98; RESP 18; TEMP 36.7; O2SAT 95
[2023-03-26] MEDS: Ibuprofen 600 MG Tablet PO ×2 (00:38→09:57)
[2023-03-26 01:25] VITALS: BP 124/62; PULSE 96; RESP 18; TEMP 36.8; O2SAT 97
[2023-03-26] MEDS: Acetaminophen 500 MG Tablet 1000 MG PO (05:51)
[2023-03-26] MEDS: busPIRone 5 MG Tablet 20 MG PO (05:52)
--- NOTE | 2023-03-26 07:20 | NURSING ---
report given to Edson Ahuja RN who is assuming care of pt at this time
[2023-03-26 08:08] VITALS: BP 122/68; PULSE 95; RESP 17; TEMP 36.6; O2SAT 99
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
[2023-03-26] MEDS: buPROPion (XL) 300 MG TABLET.XL PO (09:57)
[2023-03-26] MEDS: buPROPion (XL) 150 MG TABLET.XL PO (09:57)
--- NOTE | 2023-03-26 10:30 | CASEMGMT ---
Social Work Labor and Delivery Received call from Laura Jalloh at [facility] ([facility]), . Laura has been assigned as the construction worker regarding report called in on 03.25.23. Updated Laura to anticipated discharge timeframe. Laura will be to hospital within the hour to see mother of baby. Updated KENNEDY Malhotra regarding call from [facility]. -MISHA Vega, PORTFOLIO ACCOUNTANT
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
[2023-03-26 14:00] VITALS: BP 115/62; PULSE 101; RESP 16; TEMP 36.5
== END 2023-03-26 15:27 | disposition home or self-care (01) | DRG 560 ==
PROVIDERS: Admitting Provider Advanced Practice Midwife; PCP Clinical Nurse Specialist; Visit Provider Advanced Practice Midwife
DX: O99.344 Other mental disorders complicating childbirth (principal); Z37.0 Single live birth; O23.43 Unspecified infection of urinary tract in pregnancy, third trimester; F15.11 Other stimulant abuse, in remission; F12.10 Cannabis abuse, uncomplicated; F17.210 Nicotine dependence, cigarettes, uncomplicated; F41.9 Anxiety disorder, unspecified; F32.A Depression, unspecified; O99.814 Abnormal glucose complicating childbirth; O99.324 Drug use complicating childbirth; O99.334 Smoking (tobacco) complicating childbirth; F43.10 Post-traumatic stress disorder, unspecified; O9A.32 Physical abuse complicating childbirth; Z91.040 Latex allergy status; Z84.82 Family history of sudden infant death syndrome; Z3A.39 39 weeks gestation of pregnancy; Z79.899 Other long term (current) drug therapy; Z87.59 Personal history of other complications of pregnancy, childbirth and the puerperium; Z30.017 Encounter for initial prescription of implantable subdermal contraceptive
CPT/HCPCS: 59025; 59050; 80307; 82962; 85025; 86780; 86850; 86900; 86901; 99221; J7120; A4216; G0378; J2405

== ENCOUNTER 2023-05-26 08:34 | Day surgery (SDC) | payer MEDICAID, SELFPAY ==
[2023-05-26] VITALS (11 sets, daily range): BP systolic 95–111; BP diastolic 49–73; PULSE 71–99; RESP 14–78; TEMP 36.6–36.8; O2SAT 94–100; BMI 27.3
[2023-05-26] MEDS: Lactated Ringers 1,000 ML 15 ML IV (09:02)
[2023-05-26 09:20] LABS: Hematocrit 45.1 % (37-47); Hemoglobin 14.5 g/dL (12.0-15.0); Mean Corp Hgb Conc 32.2 g/dL (32-36); Mean Corpuscular Hgb 29.7 pg (27.0-32.0); Mean Corpuscular Volume 92.2 fL (81-99); Mean Platelet Vol. 10.5 fl (6.2-12.0); Platelet Count 314 K/mm3 (150-450); RBC Distribution Width CV 14.6 % (11.6-14.6); RBC Distribution Width SD 49.6 fl (35.1-43.9); Red Blood Count 4.89 M/mm3 (4.2-5.4); White Blood Count 7.8 K/mm3 (4.4-11.0)
[2023-05-26 09:23] LABS: Internal QC Validated? YES +Cl - CLEAR BKGD; Pregnancy, Urine Negative Negative
[2023-05-26 09:27] LABS: International Normalized Ratio 1.1; Prothrombin Time (Protime)PT. 13.7 SECONDS (11.7-14.9)
[2023-05-26 09:28] LABS: Partial Thromboplast Time 26.3 Seconds (24.1-36.2)
[2023-05-26 09:38] LABS: AST(SGOT) 45 U/L (15-37); Alanine Aminotransfer ALT/SGPT 68 U/L (13-56); Albumin, Serum 3.5 g/dL (3.2-5.0); Alkaline Phosphatase 79 U/L (45-117); Bilirubin, Direct 0.13 mg/dL (0.00-0.30); Globulin 3.7 g/dL (2.2-4.2); Protein, Total 7.2 g/dL (6.4-8.2)
--- NOTE | 2023-05-26 09:55 | FALS_PTH ---
PATIENT: JANICE BERNARD LOC: [facility] U#:[id number] AGE/SX: 28/F ROOM: RE05/26/[address]: Dr. Marie Arita MD : 1995 BED: DIS: 05/26/2023 SPEC #: [id number] RECD: 05/26/23 13:08 STATUS: KATELYNN REPinky #: [id number] SINGH: 05/26/23 09:[address]: Marie Arita DEPT: SURGICAL PATHOLOGY RECD BY: Angelia Jason ENTERED: 05/26/23 13:26 SP TYPE: FALL TUBES OTHR DR: MICAH Vargas Tissues: Fallopian tube Procedures: Surgery Specimen Level II HEADER OPERATION: Laparoscopic salpingectomy PRE-OP DIAGNOSIS: Sterilization TISSUE SUBMITTED: Bilateral fallopian tubes MICROSCOPIC DIAGNOSIS Bilateral fallopian tubes, salpingectomy: Bilateral fallopian tubes, no pathologic diagnosis. A paratubal cyst. SJ:ivone 05/27/2023 MICROSCOPIC DESCRIPTION Slides are reviewed. GROSS DESCRIPTION Received in fixative is one container labeled with the patient's name and designated bilateral fallopian tubes. The specimen consists of bilateral fallopian tubes including fimbrial ends. The first fallopian tube measures 6.0 cm in length and 0.5 cm in diameter. The second fallopian tube is received in two pieces with detached fimbrial end and measures 5.5 cm in length and 0.5 cm in diameter. The detached fimbrial end measures 1.5 x 1.5 x 0.5 cm. A paratubal cyst is also noted measuring 1.0 cm in greatest dimension. The fallopian tubes are not identified as right or left. Sections reveal unremarkable cut surfaces. Menagerie Superintendent sections are submitted in two cassettes as follows: 1 - intact fallopian tube, 2 - second fallopian tube received in two pieces and paratubal cyst. / MK:ivone 05/26/2023 TC:5 CPT: 36316 x2
--- NOTE | 2023-05-26 10:18 | PCM.HP.BLA ---
History and Physical Date of Admission: 05/26/23 MR#: [id number] Acct: [id number] Name: JANICE BERNARD Rep #: [id number] : 1995 Provider: Dr. 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: BS Secretary Specialist Required: No Is patient in pain?: No Allergies latex Allergy (Intermediate, Verified 05/18/23 15:55) Hivesnitrofurantoin Allergy (Intermediate, Verified 05/18/23 15:55) Rashamoxicillin Allergy (Verified 05/18/23 15:55) Hivesazithromycin [From Zithromax Z-Jose] Allergy (Verified 05/18/23 15:55) Rash Medications bupropion HCl 450 mg 24 hr tablet, extended release 450 mg PO DAILY anxiety, depression 02/21/23 [History Confirmed 03/24/23] buspirone 10 mg tablet 20 mg PO TID anxiety 02/21/23 [History Confirmed 03/24/23] Post menopausal: No Patient : No : No PFSH Medical History Abnormal glucose tolerance affecting , antepartum Active drug dependence Active labor at term Amphetamine abuse False labor after 37 completed weeks of gestation History of drug abuse in remission Hyperemesis gravidarum Methamphetamine abuse Supervision of high risk , antepartum UTI in Vaginal delivery Surgical History History of gynecologic surgery Family History Mother HypertensionGrandmother Breast cancer, Onset Age: 42 MaternalFather Prostate cancer, Onset Age: 52Other False labor after 37 completed weeks of gestation Social History adopted: No household members: significant other and children number of children: 3 current occupational status: unemployed pets and animals: Yes pets and animals: dog(s) history of recent travel: No sexually active: Yes Smoking Status: Current some day smoker tobacco type: cigarettes alcohol intake: former details: Not while substance use type: marijuana well-balanced diet: daily or most days caffeine: Yes Type: carbonated beverages Number of servings: 1 during the past year weight has: remained stable what type of physical activity do you participate in: none josé miguel/restoration: Taoism seatbelt use: always do you feel safe at home: Yes additional social history: [employer]- [employer]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 Date Name GA/Weeks Outcome Route Bth Weight Gen Labor Lgth Anesthesia Del Locatn Provider FOB 10/21/17 Gwen 41 live - full term 6 pound 8 oz Female 1 hour epidural [facility] JERI Reji - group home 04/13/19 Keyla() 38 live - full term 6lbs Female 10 min epidural [facility] Shahzad Miner 03/24/23 Humberto 39 live - full term Male epidural [facility] Sade Diaz CNM Walter Delivery Date: 04/13/19 Last Updated by: Siobhan Barakat of SIDS @ 2 months old Delivery Date: 03/24/23 Last Updated by: Siobhan Barakat see problem list for complications, and KW 39.6 IAL boy ROS Const Constitutional: Denies fatigue, night sweats, weight gain or weight loss ENT ENT: Reports system reviewed and no additional complaints, except as documented Cardio Card: Denies chest pain Resp Resp: Denies cough or dyspnea GI GI: Reports as per HPI; Denies abdominal pain, constipation, nausea or vomiting : Denies nipple discharge, urinary frequency, urinary incontinence, urinary hesitancy, urinary urgency, vaginal discharge, vaginal dryness, vaginal odor or vaginal pruritus Musc Musc: Denies arthralgias, back pain or muscle weakness Skin Skin/Breast: Denies alopecia, change in hair, dry skin, breast mass, breast pain, breast skin changes or nipple discharge Neuro Neuro: Reports system reviewed and no additional complaints, except as documented Psych Psych: Reports system reviewed and no additional complaints, except as documented Endo Endo: Denies cold intolerance, excessive sweating, heat intolerance or polydipsia Raf/Lymph Hematologic/Lymphatic: Denies easy bleeding, Denies easy bruising and Denies lymphadenopathy Exam Const General: cooperative, healthy appearing, comfortable and no acute distress Orientation: alert [facility] Head: normal to inspection and normocephalic Ears: hearing grossly normal bilaterally and external ears normal Nose: external nose normal and nares normal Face and sinus: normal facial exam Neck Neck: normal visual inspection and no lymphadenopathy Thyroid: thyroid normal Chest Chest palpation & inspection: normal inspection of the chest Resp Effort & Inspection: normal respiratory effort Auscultation: clear to auscultation bilaterally Cardio Rate: regular rate Rhythm: regular rhythm Heart Sounds: S1 normal and S2 normal GI Inspection: normal to inspection and non-distended Palpation: soft and no hepatosplenomegaly Musc Other: gross motor intact no deficits, full bilateral strength Skin General: no rashes or lesions noted Neuro General: patient alert, patient awake, moves all extremities and no focal motor deficits Motor: muscle tone normal throughout Extrem General: normal to inspection and no pedal edema Psych Appearance: grossly normal Mental Status: mental status grossly normal Affect: normal affect Speech and Movement: speech and movement normal Coding Level of Care Code No Charge Diagnoses Sterilization Z30.2 Assessment and Plan Assessment and Plan (1) Sterilization: Status: Acute Comment: shana BS title 19 signed 04/22 Plan After discussing the patient's diagnosis and treatment plan options, patient wishes to proceed with surgical management. I have discussed with the patient the risks, benefits, and alternatives of the procedure which include but are not limited to risks of anesthesia, bleeding, infection, possible damage to bowel, bladder, or surrounding vasculature which could lead to additional surgery to evaluate any complications. Patient agrees to procedure and wishes to proceed. ACOG/uptodate references given for additional information regarding procedure. UPDATE- I have seen the patient and performed any clinically relevant updates to the history and physical exam. Marie Arita MD
--- NOTE | 2023-05-26 11:01 | PCM.OPRPT ---
Problems Associated Problem List Diagnoses (1) Sterilization: (2) Contraceptive management: Report of Operation Date of Procedure: 05/26/23 Pre-Operative Diagnosis: see problem list Post-Operative Diagnosis: same Surgery/Procedure Performed:: laparoscopic bilateral salpingectomy Description of Surgical Findings:: nl uterus tubes ovaries Surgeon: Marie Arita Type of Anesthesia: General and Local Specimen's removed: tubes Drains: none Estimated Blood Loss (mL): 50 Fluids Replaced: crystalloid Description of Procedure: Patient was taken in the operating room and was placed under general anesthesia was prepped and draped in normal sterile fashion in the dorsal lithotomy position. Bladder was drained of clear urine and SCDs were on preoperatively. Uterus was sounded and a uterine manipulator was placed after dilating. Attention was then paid to the abdominal portion of the procedure and the umbilicus was elevated with towel clamps and injected with Marcaine and after a 5 mm incision was made and the Veress needle was entered into the abdomen confirmed to be intra-abdominal with a low opening pressure of less than 5 mmHg. Abdomen was insufflated with CO2 gas and a 5 mm optical trocar was placed under direct visualization. A 5 mm port suprapubically was placed under direct visualization. Uterus was well visualized and bilateral fallopian tubes identified and bilateral tubes were elevated and transecting across the mesosalpinx and the attachment to the uterine corpus bilaterally the tubes were removed without complication. Excellent hemostasis was noted. Fallopian tubes were removed through the lower port site without complication. Liver and upper abdomen were visualized notably within normal limits and no other gross abnormalities were seen in the abdomen. All instruments removed from the abdomen after gas was desufflated. Port sites were closed with 3-0 Monocryl Steri's and op sites were applied. All instruments removed from the vagina and patient was awoken and taken recovery in stable condition. Grafts/Implants Used: none Complications none Admit VTE Documentation VTE Present on Admission: No VTE Mechan Device Prophylaxis: SCD's Multi Select Codes Urinary/Genital Urinary/Genital CPT Codes: 06118 Laproscopic BS/O
--- NOTE | 2023-05-26 11:02 | DCINST_ITS ---
Discharge Instructions Diet Discharge Diet: No restrictions Activity Discharge Activity: Return to Normal Activity, May Not Drive (for 2 weeks or while taking narcotic pain meds.), May Shower and May Take a Tub Bath (in 7 days) May resume sexual activity in: 1 week Weight Bearing Status: Full weight bearing Dressing / Incision Call your doctor if your incision/area has: Continuous Slow Oozing, Sudden Increased Bleeding, Increased Pain/ Swelling, Increased Redness and Foul Smelling Discharge Call your doctor if you observe: Fever of 101 or Higher, Using more than 1 pad per hour, Shortness of breath, Chest pain and Uncontrolled pain Suture Line Care: Avoid Pulling/Pushing and Avoid Pinching/Bending Remove Dressing in: 1 week (if present) Cleanse incision/area with: Soap & Water and Keep Dressing Clean & Dry Follow Up Care When: Call to make an appointment with your doctor for a fu/incision check in 1- 2 weeks. Test Results: Test results from this visit will be discussed in further detail at your follow- up appointment, if applicable. Discharge Plan Admission Attending Provider: Marie Arita Primary Care Provider: Cat Wild NP Discharge Orders/Prescriptions Prescriptions: No Action buspirone 10 mg tablet 20 mg PO TID Rx Instructions: patient states she is only 10mg but suppose to take 20mg bupropion HCl 450 mg tablet extended release 24 hr 450 mg PO DAILY venlafaxine 37.5 mg capsule,extended release 24hr 37.5 mg PO DAILY Patient Comments: TAKE 1 CAPSULE BY MOUTH ONCE DAILY Referrals / Follow Up: Cat Wild NP, SCREEN PRINTING SUPERVISOR-C [Primary Care Provider] - Disposition Disposition (needs filled in before D/C Order can be placed): Home, Self Care
[2023-05-26] MEDS: Bupivacaine 0.25% 30 ML Vial (11:50)
--- NOTE | 2023-05-26 12:30 | SUR.PHASEI ---
RESTING QUIETLY WITH EYES CLOSED, NO S/S DISTRESS, VSS. WHEN ASKED, PATIENT STATES IT'S A 9[birth year]07/[birth year], I'M TELLING YOU IT FUCKING HURTS.
[2023-05-26] MEDS: Oxycodone/Apap 5/325 Tablet PO (14:36)
== END 2023-05-26 14:50 | disposition home or self-care (01) ==
LOC: SDC 08:37 → AC 08:37
PROVIDERS: Anesthesiology; PCP Clinical Nurse Specialist; Referring Provider Obstetrics & Gynecology; Visit Provider Obstetrics & Gynecology
PROC: (CPT 58661; principal; 2023-05-26 09:40)
DX: Z30.2 Encounter for sterilization (principal); F31.9 Bipolar disorder, unspecified; N83.8 Other noninflammatory disorders of ovary, fallopian tube and broad ligament; F17.210 Nicotine dependence, cigarettes, uncomplicated; F12.90 Cannabis use, unspecified, uncomplicated; F41.9 Anxiety disorder, unspecified; Z79.899 Other long term (current) drug therapy
CPT/HCPCS: 58661; 00840; 80076; 81025; 85027; 85610; 85730; 86850; 86900; 86901; 88302; J7120; J2405

== ENCOUNTER → 2024-02-09 | Outpatient (CLI) | payer MEDICAID, SELFPAY ==
[2024-02-09 16:32] LABS: Absolute Lymphocyte Count 3.85 X10^3/uL (0.83-4.51); Absolute Neutrophil Count 3.6 X10^3/uL (2.0-7.7); Basophil# 0.07 X10^3/uL; Basophil% 0.8 % (0-1); Eosinophil# 0.56 X10^3/uL; Eosinophils% 6.4 % (0-5); Hematocrit 44.4 % (37-47); Hemoglobin 14.7 g/dL (12.0-15.0); Lymphocyte # 3.85 X10^3/ul (0.83-4.51); Lymphocyte % 44.3 % (19-41); Mean Corp Hgb Conc 33.1 g/dL (32-36); Mean Corpuscular Hgb 29.3 pg (27.0-32.0); Mean Corpuscular Volume 88.6 fL (81-99); Mean Platelet Vol. 11.2 fl (6.2-12.0); Monocyte# 0.57 X10^3/uL; Monocyte% 6.6 % (0-10); NRBC Flagged by Analyzer 0 % (0-5); Neutrophil # 3.62 X10^3/uL (2.7-7.7); Neutrophil % 41.7 % (47-70); Platelet Count 296 K/mm3 (150-450); RBC Distribution Width CV 13.7 % (11.6-14.6); RBC Distribution Width SD 44.1 fl (35.1-43.9); Red Blood Count 5.01 M/mm3 (4.2-5.4); White Blood Count 8.7 K/mm3 (4.4-11.0)
[2024-02-09 16:58] LABS: Thyroid Stim Hormone (TSH) 0.81 uIU/mL (0.358-3.74)
[2024-02-11 08:11] LABS: Thyroid Peroxidase AB < 9 IU/mL (0-34)
== END | disposition home or self-care (01) ==
LOC: LAB 15:32
PROVIDERS: PCP Clinical Nurse Specialist; Referring Provider Nurse Practitioner Women's Health; Visit Provider Nurse Practitioner Women's Health
DX: Z13.29 Encounter for screening for other suspected endocrine disorder (principal); N92.0 Excessive and frequent menstruation with regular cycle
CPT/HCPCS: 36415; 84439; 84443; 85025; 86376

== ENCOUNTER → 2024-02-11 | Outpatient (CLI) | payer MEDICAID, SELFPAY ==
--- NOTE | 2024-02-11 15:36 | US_ITS ---
STUDY: ULTRASOUND OF THE FEMALE PELVIS - COMPLETE REASON FOR EXAM: Female, 28 years old. heavy vaginal bleeding. LMP: TECHNIQUE: Transabdominal and transvaginal TECHNICAL QUALITY: Adequate. COMPARISON: None. FINDINGS: The uterus is anteverted and is in a midline position. The uterus measures 7.4 x 5.3 x 3.5 cm. Normal uterine cervix. The endometrium measures 3 mm in thickness, and is hyperechoic. There is no demonstrated endometrial mass. Myometrial echogenicity is slightly heterogeneous however there is a well-defined fibroid. I.U.D. - The patient does not have an I.U.D. The right ovary is visualized. The right ovary measures 3 x 2.5 x 2.1 cm. There is no right ovarian cyst or ovarian mass. There is no visualized right adnexal mass or complex lesion. There is normal arterial and normal venous vascularity. The left ovary is visualized. The left ovary measures 2.7 x 1.8 x 1.7 cm. There is no left ovarian cyst or ovarian mass. There is no visualized left adnexal mass or complex lesion. There is normal arterial and normal venous vascularity. There is no fluid in the cul-de-sac. The pre void volume of the bladder was 100.1 ml. US/Pelvic w/ Transvaginal IMPRESSION: Mildly heterogeneous myometrial echogenicity without discrete fibroid Electronically Signed: Avni Hdez MD at 16:19 EDT ,
== END | disposition home or self-care (01) ==
LOC: US 15:35
PROVIDERS: PCP Clinical Nurse Specialist; Referring Provider Obstetrics & Gynecology; Visit Provider Obstetrics & Gynecology
DX: N92.0 Excessive and frequent menstruation with regular cycle (principal)
CPT/HCPCS: 76830; 76856

== ENCOUNTER 2024-03-01 23:38 | Emergency (ER) | payer MEDICAID, SELFPAY ==
[2024-03-01 23:39] VITALS: BP 122/64; PULSE 100; RESP 16; TEMP 36.1; O2SAT 100
[2024-03-01 23:52] VITALS: BMI 29.6
--- NOTE | 2024-03-02 | RAD_ITS ---
EXAM: XR LEFT KNEE COMPLETE, 4 OR MORE VIEWS CLINICAL INDICATION: knee pain TECHNIQUE: Four or more views of the left knee. COMPARISON: No relevant prior studies available. FINDINGS: BONES/JOINTS: Unremarkable. No acute fracture. No subluxation. Normal alignment. Preservation of the joint space. No sclerotic or destructive changes observed. SOFT TISSUES: Unremarkable. No soft tissue swelling or gas. No radiopaque foreign body. RAD/Knee 4 or More Views IMPRESSION: Negative left knee x-rays. Electronically Signed: Rush Avendano MD at 0:55 EDT ,
--- NOTE | 2024-03-02 00:18 | EDS_ITS ---
HPI History of Present Illness Chief Complaint: Lower Extremity Injury Narrative Narrative: 28-year-old female presenting with left knee pain. She states she went to sit down and when she went backwards to sit her knee Popped sideways to the left. She states her boyfriend put it back in place. She is unable to bear weight secondary to pain. Denies any numbness or tingling. No previous history of problems with his knee. [facility] Medical History Piercing Bipolar disorder Depression Anxiety Alcohol use Marijuana use Easy bruising Back pain Migraine headache Heartburn Smoker Shortness of breath on exertion Leg cramps History of edema History of irregular heartbeat Vaginal delivery Active labor at term False labor after 37 completed weeks of gestation Abnormal glucose tolerance affecting , antepartum UTI in Supervision of high risk , antepartum Amphetamine abuse Active drug dependence Methamphetamine abuse Hyperemesis gravidarum History of drug abuse in remission Home Medications ?Medication ?Instructions ?Recorded ?Last Taken ?Type NK 03/01/24 Unknown History oxycodone 5 mg capsule 5 mg PO Q6H PRN pain 3 days #12 03/02/24 Unknown Rx caps Allergy/AdvReac Type Severity Reaction Status Date / Time latex Allergy Intermediate Hives Verified 03/01/24 23:43 nitrofurantoin Allergy Intermediate Rash Verified 03/01/24 23:43 amoxicillin Allergy Hives Verified 03/01/24 23:43 azithromycin (From Zithromax Allergy Rash Verified 03/01/24 23:43 Z-Jose) Family History Mother Hypertension Grandmother Breast cancer, Onset Age: 42 Maternal Father Prostate cancer, Onset Age: 52 Other False labor after 37 completed weeks of gestation Surgical History History of gynecologic surgery Social History adopted: No household members: significant other and children number of children: 3 current occupational status: unemployed pets and animals: Yes pets and animals: dog(s) history of recent travel: No sexually active: Yes Smoking Status: Current some day smoker tobacco type: cigarettes alcohol intake: former details: Not while substance use type: marijuana well-balanced diet: daily or most days caffeine: Yes Type: carbonated beverages Number of servings: 1 during the past year weight has: remained stable what type of physical activity do you participate in: none josé miguel/judaism: Holiness seatbelt use: always do you feel safe at home: Yes additional social history: BF- [employer] ROS ROS ED Constitutional Constitutional ED: Denies chills, fever(s) or sweats Eyes Eyes: Denies blurry vision or change in vision ENT ENT ED: Denies ear pain or sore throat Cardiovascular Cardiovascular: Denies chest pain, palpitations or racing heartbeat Respiratory/Chest Respiratory/Chest: Denies cough, dyspnea or sputum Gastrointestinal Gastrointestinal: Denies abdominal pain, constipation, diarrhea, nausea or vomiting Genitourinary Genitourinary ED: Denies dysuria, hematuria or urinary frequency Musculoskeletal Musculoskeletal: Reports other Details: Left knee pain ; Denies arthralgias, myalgias or neck pain Integumentary Denies abscess, Abrasions or rash Neurologic Neurologic: Denies headache(s), paresthesias or weakness Psychiatric Psychiatric: Denies anxiety, depression, suicidal ideation or suicidal thoughts Endocrine Endocrinology: Denies polydipsia or polyuria EXAM Physical Exam Const Vital Signs: 03/01/24 23:39 Temperature 96.9 F L Temperature Source Temporal Pulse Rate 100 Respiratory Rate 16 Blood Pressure 122/64 H Blood Pressure Mean 83 Pulse Ox 100 Positive well nourished General Appearance ED: NAD HEENT Reports moist mucous membranes Resp normal respiratory effort Cardio regular rate and regular rhythm Extremity Extremity Narrative: Left knee tender to palpation on the lateral joint line. No tenderness elicited on the medial joint line. The left knee extensor mechanism is intact. The inferior aspect of the patella is tender. There is pain elicited with varus strain but not with valgus strain. I do not appreciate any ligamentous laxity. There is no significant bruising or swelling. Neuro oriented x3 Sensorium / Orientation: alert Motor Exam: strength 5/5 throughout Psych mental status grossly normal MDM MDM MDM Narrative Medical decision making narrative: Patient presenting with left knee pain. She states her left knee Dislocated to the left and it was replaced. She is not having pain. She is unable to ambulate. Patient medicated with oxycodone. X-ray of the left knee interpreted by myself shows no acute fracture or subluxation. I will place the patient in a knee immobilizer for comfort. She will be given crutches and follow-up with orthopedics. She was given a prescription for oxycodone which is filled via meds to beds. All questions were answered. Patient discharged in stable condition. Impression: 1. Left patellar dislocation Lab Data Attestation: I reviewed the patient's lab results. Radiography Diagnostic Testing: Clinical Impression(s) from Imaging Studies Knee X-Ray 03/02/24 00:00 IMPRESSION: Negative left knee x-rays. Electronically Signed: Rush Avendano MD at 0:55 EDT , Discharge Plan Triage Chief Complaint: Lower Extremity Injury ED Provider: Carmelo Menon Dx/Rx/DC Orders Instructions: ED Knee Sprain Prescriptions: New oxycodone 5 mg capsule 5 mg PO Q6H PRN (Reason: pain) 3 Days Qty: 12 0RF No Action NK Primary Care Provider: Cat Wild NP Referrals: Solis Lazo MD [Med Staff - Active Staff] - 3-5 Days Cat Wild NP, CEMENT AND CONCRETE PLANT WORKER-C [Primary Care Provider] - Print Language: Yakut Disposition Disposition: Home, Self Care
[2024-03-02] MEDS: oxyCODONE 5 MG Tablet PO (00:36)
== END 2024-03-02 01:10 | disposition home or self-care (01) ==
LOC: ED 03-02 00:25
PROVIDERS: Emergency Provider Student in an Organized Health Care Education/Training Program; PCP Clinical Nurse Specialist; Visit Provider Student in an Organized Health Care Education/Training Program
DX: S83.005A Unspecified dislocation of left patella, initial encounter (principal); F31.9 Bipolar disorder, unspecified; F12.90 Cannabis use, unspecified, uncomplicated; F17.210 Nicotine dependence, cigarettes, uncomplicated; X58.XXXA Exposure to other specified factors, initial encounter
CPT/HCPCS: 73564; 99283

== ENCOUNTER 2024-03-16 12:13 | Outpatient (RCR) | payer MEDICAID, SELFPAY ==
--- NOTE | 2024-03-16 13:59 | HP.PTEVAL_ITS ---
Patient's Visit Information Visit Information Visit Information: JANICE BERNARD is a 28 year old F referred to Physical Therapy by Dr. Gorge Garcia MD with a diagnosis of INSTABILITY LEFT KNEE, STRAIN OF MUSCLE TENDON AT LOWER LEG. Date of Evaluation: 03/16/24 Physical Therapist: Benjamin Brown, PT, Cert MDT, OCS Visit Plan Frequency: 2x /Week Duration: 6 Weeks Plan: PRECAUTION: LATEX ALLERGY HINGE BRACE PT INTERVENTIONS ROM ,GRADED STRENGTHENING QUADS/HAMS/HIP OPEN/CLOSED CHAIN , WB/PROPRIOCEPTION , FLEXABILITY , VASO FOR EDEMA , AND ESTIM/CP AND/OR NMES Subjective Subjective: This 28 y/o female presents to physical therapy with left knee pain for patella femoral instability. Patient dislocated left knee needed to relocated patella by boyfriend with immediate pain about 2 weeks ago. Patient had edema. Went ER had x-rays -. Seen DR Garcia recommended PT brace and crutches . Patient has pain in knee global. Patient denies p aresthesia/tingling.Patient has sharp pain. Aggravating factors walking/standing ,unable to squat /kneeling and difficulty with stairs. Patient has difficulty with sleeping .Patient has difficulty with ADLS /housework tasks. Patient has condition affects QOL and function/ADLS. Patient goals to return to normal function SOCIAL: single 5 children VOCATION: HOME Pain Left Knee: Pain Intensity (Out of 10): 8 Pain Intensity Range: 10 Objective Objective: POSTURE:knee flexed patella saúl , OBSERVATION: Knee brace intact ,atrophied quad GAIT: ambulates with knee flexed with antalgic gait poor WB EDEMA : knee 1+ PALPATION: tender global patella AROM: supine knee 5 -70 degrees pain QUAD SET: POOR MMT: ( PEAK [employer]CE) quads/hams/hip flexion/abduction 0 Special Tests L Knee Patellar Apprehension - PFS: Positive Balance/Special Test Scores Lower Extremity Functional Score: 13 Goals Goal 1:: Patient to be I with HEP knee Goal Time Frame: 4-6 Weeks Goal 2:: Patient to improve AROM supine knee flexion 0-130 degrees to improve function stairs Goal Time Frame: 4-6 Weeks Goal 3:: Patient to normalize gait pattern Goal Time Frame: 4-6 Weeks Goal 4:: Patient to improve peak force quads/hams/hip by 15-20 # to improve gait and function Goal Time Frame: 4-6 Weeks Goal 5:: Patient to improve LFER score by 5 -10 points to improve function and QOL Goal Time Frame: 4-6 Weeks Goal 6:: Patient to demonstrate 50% improvement with function and ADLS/GAIT Goal Time Frame: 4-6 Weeks Rehabilitation Potential Physical Therapy Diagnosis: Patient has left knee patella dislocation with edema ,poor ROM ,pain ,weakness impairs walking and ADLS 's Rehabilitation Potential: Good Anticipated Interventions Patient/Client Instruction: Educate patient on: Condition and Plan of Care For the Purpose of:: To decrease pain, To increase ROM, To improve muscle performance and motor function, To improve ability to perform ADL's, To increase tolerance to activity/condition/position, To improve ability of physical actions for home/community/work/leisure, To improve gait and locomotor functions, To improve health of tissue, To decrease soft tissue restriction, To increase flexibility/ROM, To improve endurance, To improve safety with gait and To improve tolerance to ADL's Therapeutic Exercise to Include: Strength training, Endurance training, Balance training, Passive ROM and Active ROM Comment: QUADS/HAMS/HIP For the Purpose of:: To decrease pain, To increase ROM, To improve muscle performance and motor function, To improve ability to perform ADL's, To increase tolerance to activity/condition/position, To improve performance and independence with ADL's, To improve ability of physical actions for home/community/work/leisure, To improve gait and locomotor functions, To improve health of tissue, To decrease soft tissue restriction, To increase flexibility/ROM, To improve endurance, To improve balance, To reduce risk of recurrence, To prevent re-injury and To improve tolerance to ADL's TENS: Yes IF ES: Yes Cryotherapy (ice pack, ice massage): Yes Thermo therapy (hot pack): Yes Vasopneumatic device: Yes For the Purpose of:: To decrease pain, To decrease swelling/inflammation, To increase ROM, To improve muscle performance and motor function, To improve ability to perform ADL's, To increase tolerance to activity/condition/position, To improve ability of physical actions for home/community/work/leisure, To decrease soft tissue restriction, To increase flexibility/ROM, To reduce risk of recurrence and To improve tolerance to ADL's Text: Thank you for the opportunity to evaluate your patient. For Medicare and Medicare HMO plans, please review the plan of care and approve it. It will need to be FAXED BACK to us at [phone] for Medicare purposes. For Medicare only, by signing this I certify the plan of care. Please let me know if there are questions or concerns regarding this plan of care. Physician Signature: Date:
--- NOTE | 2024-04-29 13:52 | HP.PT.NRP ---
Patient Information Patient Information: JANICE BERNARD was seen in my office for initial evaluation on 03/16/24. The following Plan of Care was established for this patient: POC Established Initial Frequency: 2x /Week Initial Duration: 6 Weeks Anticipated Interventions Patient/Client Instruction: Educate patient on: Condition and Plan of Care For the Purpose of:: To decrease pain, To increase ROM, To improve muscle performance and motor function, To improve ability to perform ADL's, To increase tolerance to activity/condition/position, To improve ability of physical actions for home/community/work/leisure, To improve gait and locomotor functions, To improve health of tissue, To decrease soft tissue restriction, To increase flexibility/ROM, To improve endurance, To improve safety with gait and To improve tolerance to ADL's Therapeutic Exercise to Include: Strength training, Endurance training, Balance training, Passive ROM and Active ROM For the Purpose of:: To decrease pain, To increase ROM, To improve muscle performance and motor function, To improve ability to perform ADL's, To increase tolerance to activity/condition/position, To improve performance and independence with ADL's, To improve ability of physical actions for home/community/work/leisure, To improve gait and locomotor functions, To improve health of tissue, To decrease soft tissue restriction, To increase flexibility/ROM, To improve endurance, To improve balance, To reduce risk of recurrence, To prevent re-injury and To improve tolerance to ADL's TENS: Yes IF ES: Yes Cryotherapy (ice pack, ice massage): Yes Thermo therapy (hot pack): Yes Vasopneumatic device: Yes For the Purpose of:: To decrease pain, To decrease swelling/inflammation, To increase ROM, To improve muscle performance and motor function, To improve ability to perform ADL's, To increase tolerance to activity/condition/position, To improve ability of physical actions for home/community/work/leisure, To decrease soft tissue restriction, To increase flexibility/ROM, To reduce risk of recurrence and To improve tolerance to ADL's Last Seen Last Seen: This patient was last seen in our office . Pertinent comments regarding their Physical therapy will appear below: Patient seen for PT nettie but did not return At this point I will be discontinuing this patient from physical therapy. I would be happy to see this patient again in the future if found appropriate by the physician. Thank you! Benjamin Brown, PT, Cert MDT, OCS Balance/Gait/Functional tests Balance/Special Test Scores Lower Extremity Functional Score: 13
== END 2024-03-16 19:00 | disposition home or self-care (01) ==
LOC: PT 12:13
PROVIDERS: PCP Clinical Nurse Specialist; Referring Provider Orthopaedic Surgery Sports Medicine; Visit Provider Orthopaedic Surgery Sports Medicine
DX: S86.919D Strain of unspecified muscle(s) and tendon(s) at lower leg level, unspecified leg, subsequent encounter (principal); M25.362 Other instability, left knee
CPT/HCPCS: 97162

== ENCOUNTER 2024-06-26 15:41 | Emergency (ER) | payer MEDICAID, SELFPAY ==
[2024-06-26 15:42] VITALS: BP 124/76; PULSE 126; RESP 22; TEMP 36.8; O2SAT 95; BMI 28.0
--- NOTE | 2024-06-26 15:50 | EDS_ITS ---
HPI HPI - URI History of Present Illness Chief Complaint: Cough Informant: patient Onset/Context/Timing Onset: Days (3) Context: Sudden Onset Timing: Continuous Quality: Sharp Location: Chest Worsened by: - (Nothing) Relieved by: - (Nothing) Associated Symptoms Associated Symptoms: Positive for Nasal Congestion, Headache, Sinus Pressure, Myalgias, Nausea, Vomiting, Diarrhea, Shortness of Breath, Chest Pain and Productive Cough Narrative Narrative: Patient presents with cough, nausea, vomiting, and upper respiratory congestion that has been getting worse over the past 3 days. Patient states she went to the urgent care today and was referred to the emergency department because she is unable to keep anything down. Patient states she was told at the urgent care that she may need IV fluids because she may be dehydrated. Patient states she has sharp pain in her chest. Patient states nothing makes it better and nothing makes it worse. Patient also admits to a headache. Patient admits to some cough with green sputum. Patient admits to nausea, vomiting, and diarrhea. Patient admits to some chest pain or shortness of breath. Patient states her fever at home was 101. ROS ROS ED Constitutional Constitutional ED: Reports chills and fever(s) Eyes Eyes: Denies blurry vision or change in vision ENT ENT ED: Denies rhinorrhea or sore throat Cardiovascular Cardiovascular: Reports chest pain; Denies palpitations Respiratory/Chest Respiratory/Chest: Reports cough and dyspnea Gastrointestinal Gastrointestinal: Reports diarrhea, nausea and vomiting Genitourinary Genitourinary ED: Denies dysuria or hematuria Musculoskeletal Musculoskeletal: Reports back pain and neck pain Integumentary Denies abscess or rash Neurologic Neurologic: Reports headache(s) and weakness Allergic/Immunologic Allergic/Immunologic ED: Denies mouth swelling or urticaria [facility] Medical History (Updated 06/26/24 @ 17:[address] Troy Ferrell, DO) Instability of left patellofemoral joint Piercing Bipolar disorder Depression Anxiety Alcohol use Marijuana use Easy bruising Back pain Migraine headache Heartburn Smoker Shortness of breath on exertion Leg cramps History of edema History of irregular heartbeat Vaginal delivery Active labor at term False labor after 37 completed weeks of gestation Abnormal glucose tolerance affecting , antepartum UTI in Supervision of high risk , antepartum Amphetamine abuse Active drug dependence Methamphetamine abuse Hyperemesis gravidarum History of drug abuse in remission Home Medications ?Medication ?Instructions ?Recorded ?Last Taken ?Type NK 03/01/24 Unknown History oxycodone 5 mg capsule 5 mg PO Q6H PRN pain 3 days #12 03/02/24 Unknown Rx caps Allergy/AdvReac Type Severity Reaction Status Date / Time latex Allergy Intermediate Hives Verified 06/26/24 15:45 nitrofurantoin Allergy Intermediate Rash Verified 06/26/24 15:45 amoxicillin Allergy Hives Verified 06/26/24 15:45 azithromycin (From Zithromax Allergy Rash Verified 06/26/24 15:45 Z-Jose) Family History Mother Hypertension Grandmother Breast cancer, Onset Age: 42 Maternal Father Prostate cancer, Onset Age: 52 Other False labor after 37 completed weeks of gestation Surgical History (Updated 06/26/24 @ 16:[address] Troy Ferrell DO) Hx of tubal ligation History of gynecologic surgery Social History adopted: No household members: significant other and children number of children: 3 current occupational status: unemployed pets and animals: Yes pets and animals: dog(s) history of recent travel: No sexually active: Yes Smoking Status: Current some day smoker tobacco type: cigarettes alcohol intake: former details: Not while substance use type: marijuana well-balanced diet: daily or most days caffeine: Yes Type: carbonated beverages Number of servings: 1 during the past year weight has: remained stable what type of physical activity do you participate in: none josé miguel/yarsani: Mosque seatbelt use: always do you feel safe at home: Yes additional social history: [employer] EXAM Physical Exam Const Vital Signs: 06/26/24 15:41 06/26/24 15:42 Temperature 98.2 F Temperature Source Oral Pulse Rate 126 H Respiratory Rate 22 H Respiratory Effort Normal Non-Labored Respiratory Depth Normal Respiratory Pattern Normal Blood Pressure 124/76 H Blood Pressure Mean 92 Pulse Ox 95 Oxygen Delivery Method Room Air Room Air Positive well nourished and well developed General Appearance ED: well developed and NAD HEENT Reports moist mucous membranes normocephalic and atraumatic Neck supple, no meningeal signs and no JVD Resp normal respiratory effort and clear to auscultation bilaterally Cardio Rate: regular rate Rhythm: regular rhythm GI non-tender and non-distended Palpation: soft Extremity normal to inspection and full ROM General Extremety ED: Negative for tenderness Neuro oriented x3, CN's II-XII intact bilaterally and no sensory deficits noted Sensorium / Orientation: alert Motor Exam: strength 5/5 throughout Psych mental status grossly normal MDM MDM MDM Narrative Medical decision making narrative: Differential diagnosis includes viral illness, pneumonia, dehydration, electrolyte abnormality, and anxiety. CBC will be obtained to assess for leukocytosis and anemia. Basic metabolic profile will be obtained to assess for electrolyte abnormality and renal function. Serum hCG will be obtained to assess for . COVID-19, influenza, and RSV PCR will be obtained to assess for viral illness. Chest x-ray will be obtained to assess for pneumonia. Lab Data Attestation: I reviewed the patient's lab results. Lab results narrative: CBC was reviewed. There is a mild leukocytosis of 12.1. The remainder is within normal limits. Basic metabolic profile was reviewed and was essentially within normal limits. Serum hCG was reviewed and was negative. Labs: Laboratory Results - last 24 hr 06/26/24 16:26 WBC 12.1 H RBC 5.09 Hgb 14.9 Hct 45.9 MCV 90.2 MCH 29.3 MCHC 32.5 RDW Std Deviation 43.2 RDW Coeff of Earline 13.1 Plt Count 265 MPV 11.2 Immature Gran % (Auto) 0.300 Neut % (Auto) 69.8 Lymph % (Auto) 20.4 [place] % (Auto) 4.9 Eos % (Auto) 4.0 Baso % (Auto) 0.6 Absolute Neuts (auto) 8.5 H Absolute Lymphs (auto) 2.47 Nucleated RBC % 0 Sodium 141 Potassium 3.7 Chloride 109 H Carbon Dioxide 25.0 Anion Gap 7 BUN 5 L Creatinine 0.88 Estim Creat Clear Calc 89.51 Est GFR (MDRD) Af Amer 98 Est GFR (MDRD) Non-Af 81 BUN/Creatinine Ratio 5.7 L Glucose 105 Calcium 8.6 Serum , Qual NEGATIVE Radiography Diagnostic Testing: Clinical Impression(s) from Imaging Studies Chest X-Ray 06/26/24 16:40 IMPRESSION: No radiographic evidence of acute cardiopulmonary disease. Electronically Signed: Kendall Quezada MD at 17:16 EDT , PA and lateral chest x-ray was obtained. There are 2 views. On my independent interpretation, lung ocasio are clear. There is normal cardiac silhouette. Bony thorax is normal. There is no acute process noted. Radiologist also interpreted the x-ray and agrees. Treatment and Re-Evaluation Narrative: Patient was given IV fluids, Zofran, and Tylenol. Patient left without completing treatment. Patient left prior to her COVID, influenza, and RSV results. Patient did not want to wait any longer. Patient did not wait for discharge instructions and just left the emergency department. Discharge Plan Triage Chief Complaint: Cough ED Provider: Troy Ferrell Dx/Rx/DC Orders Clinical Impression: Viral upper respiratory tract infection, Nausea and vomiting Instructions: ED URI, Viral, No Abx (Adult) Prescriptions: No Action NK oxycodone 5 mg capsule 5 mg PO Q6H PRN (Reason: pain) 3 Days Qty: 12 0RF Primary Care Provider: Cat Wild NP Referrals: Cat Wild CLE[employer] OUT DRILLER HELPER, CLE[employer] OUT DRILLER HELPER-C [Primary Care Provider] - Print Language: [place] Irish Disposition Disposition: Elopement Discharge Date/Time: 06/26/24 17:57
[2024-06-26] MEDS: Ondansetron 4 MG/2 ML Vial IV (16:31)
[2024-06-26] MEDS: Acetaminophen 500 MG Tablet 1000 MG PO (16:31)
[2024-06-26] MEDS: 0.9% Normal Saline (1000mL) 1,000 ML 1000 ML IV (16:31)
--- NOTE | 2024-06-26 16:40 | RAD_ITS ---
EXAM: XR CHEST, 2 VIEWS CLINICAL INDICATION: COUGH TECHNIQUE: Frontal and lateral views of the chest. COMPARISON: No relevant prior studies available. FINDINGS: LUNGS AND PLEURAL SPACES: Unremarkable. No consolidation or edema. No pneumothorax. No effusion. HEART: Unremarkable. Cardiac silhouette not enlarged. MEDIASTINUM: Central airways and mediastinal contour are unremarkable. BONES/JOINTS: Unremarkable. No acute fracture. SOFT TISSUES: Unremarkable. RAD/Chest PA and Lateral IMPRESSION: No radiographic evidence of acute cardiopulmonary disease. Electronically Signed: Kendall Quezada MD at 17:16 EDT ,
[2024-06-26 16:43] LABS: Absolute Lymphocyte Count 2.47 X10^3/uL (0.83-4.51); Absolute Neutrophil Count 8.5 X10^3/uL (2.0-7.7); Basophil# 0.07 X10^3/uL; Basophil% 0.6 % (0-1); Eosinophil# 0.49 X10^3/uL; Hematocrit 45.9 % (37-47); Hemoglobin 14.9 g/dL (12.0-15.0); Lymphocyte # 2.47 X10^3/ul (0.83-4.51); Lymphocyte % 20.4 % (19-41); Mean Corp Hgb Conc 32.5 g/dL (32-36); Mean Corpuscular Hgb 29.3 pg (27.0-32.0); Mean Corpuscular Volume 90.2 fL (81-99); Mean Platelet Vol. 11.2 fl (6.2-12.0); Monocyte# 0.59 X10^3/uL; Monocyte% 4.9 % (0-10); NRBC Flagged by Analyzer 0 % (0-5); Neutrophil # 8.47 X10^3/uL (2.7-7.7); Neutrophil % 69.8 % (47-70); Platelet Count 265 K/mm3 (150-450); RBC Distribution Width CV 13.1 % (11.6-14.6); RBC Distribution Width SD 43.2 fl (35.1-43.9); Red Blood Count 5.09 M/mm3 (4.2-5.4); White Blood Count 12.1 K/mm3 (4.4-11.0)
[2024-06-26 16:52] LABS: Internal QC Validated? YES +Cl - CLEAR BKGD; Pregnancy, Serum, hCG Quali. NEGATIVE Negative
[2024-06-26 16:57] LABS: Anion Gap 7 (5-15); BUN 5 mg/dL (7-18); BUN/Creat Ratio 5.7 RATIO (10-20); Calcium,Total 8.6 mg/dL (8.5-10.1); Chloride 109 mmol/L (98-107); Creatinine, Serum 0.88 mg/dL (0.55-1.02); EST Glomerular Filtration Rate 81 mL/min (>60); Est Glom Filt Rate - Afr Amer 98 mL/min (>60); Estimated Creatinine Clearance 89.51 ml/min; Glucose 105 mg/dL (74-106); Potassium 3.7 mmol/L (3.5-5.1); Sodium Level 141 mmol/L (136-145)
--- NOTE | 2024-06-26 17:52 | ED.RN ---
pt flagged this RN down in [facility], stated she wanted to leave without obtaining results. Dr. Ferrell made aware, IV out. RN explained importance of waiting to obtain results. Pt stated Well if I it'll be my own fault because I want to go home
== END 2024-06-26 17:57 | disposition left against medical advice (07) ==
LOC: ED 15:58
PROVIDERS: Emergency Provider Emergency Medicine; PCP Clinical Nurse Specialist; Referring Provider Emergency Medicine; Visit Provider Emergency Medicine
DX: J06.9 Acute upper respiratory infection, unspecified (principal); R11.2 Nausea with vomiting, unspecified; F17.210 Nicotine dependence, cigarettes, uncomplicated; Z53.29 Procedure and treatment not carried out because of patient's decision for other reasons; Z88.0 Allergy status to penicillin; Z88.1 Allergy status to other antibiotic agents
CPT/HCPCS: 71046; 80048; 84703; 85025; 87631; 96361; 96374; 99283; J7030; A4216; J2405